=== PATIENT | male | born 1935 | race Caucasian/White ===

== ENCOUNTER → 2017-03-06 | Outpatient (CLI) | payer OTHER ==
[2017-03-07 12:44] LABS: POTASSIUM 4.9 mmol/L (3.5-5.1); SODIUM 133 mmol/L (136-145)
[2017-03-07 12:45] LABS: ANION GAP 13.9 mmol/L (8-16); BASOPHILS % 0.3 % (0.0-1.0); BLOOD UREA NITROGEN 16 mg/dL (7-26); BUN/CREATININE RATIO 25 (6-25); CALCIUM 8.9 mg/dL (8.4-10.2); CARBON DIOXIDE 31 mmol/L (22-29); CHLORIDE 93 mmol/L (98-107); CREATININE, SERUM 0.65 mg/dL (0.72-1.25); EST GLOMERULAR FILTRATION RATE > 60 ML/MIN (60-); GLUCOSE 108 mg/dL (74-118); HEMATOCRIT 35.5 % (38.2-49.6); HEMOGLOBIN 11.5 g/dL (14.0-18.0); LYMPHOCYTES # (AUTO) 0.5 (1.0-3.2); LYMPHOCYTES % 4.4 % (18.0-39.1); MEAN CORPUSCULAR HEMOGLOBIN 31.3 pg (28-32); MEAN CORPUSCULAR HGB CONC 32.4 g/dL (31-35); MEAN CORPUSCULAR VOLUME 96.5 fL (81-99); MONOCYTES # (AUTO) 0.6 (0.2-0.8); MONOCYTES % 5.3 % (4.4-11.3); NEUTROPHILS # (AUTO) 10.2 (2.1-6.9); NEUTROPHILS % 89.6 % (38.7-80.0); PLATELET COUNT 263 x10e3/uL (140-360); RED BLOOD COUNT 3.68 x10e6/uL (4.3-5.7); RED CELL DISTRIBUTION WIDTH 13.4 % (11.7-14.4)
== END ==
LOC: NPA 10:00
DX: R69 Illness, unspecified (principal)
CPT/HCPCS: 36415; 80048; 85025

== ENCOUNTER → 2017-03-21 | Outpatient (CLI) | payer OTHER ==
[2017-03-21 17:09] LABS: BASOPHILS # (AUTO) 0.1 (0.0-0.1); BASOPHILS % 0.4 % (0.0-1.0); EOSINOPHILS % 0.2 % (0.0-6.0); HEMATOCRIT 35.3 % (38.2-49.6); HEMOGLOBIN 11.2 g/dL (14.0-18.0); LYMPHOCYTES # (AUTO) 0.5 (1.0-3.2); LYMPHOCYTES % 3.9 % (18.0-39.1); MEAN CORPUSCULAR HEMOGLOBIN 30.7 pg (28-32); MEAN CORPUSCULAR HGB CONC 31.7 g/dL (31-35); MEAN CORPUSCULAR VOLUME 96.7 fL (81-99); MONOCYTES # (AUTO) 1.1 (0.2-0.8); MONOCYTES % 7.6 % (4.4-11.3); NEUTROPHILS # (AUTO) 12.1 (2.1-6.9); NEUTROPHILS % 87.5 % (38.7-80.0); PLATELET COUNT 257 x10e3/uL (140-360); RED BLOOD COUNT 3.65 x10e6/uL (4.3-5.7); RED CELL DISTRIBUTION WIDTH 13.8 % (11.7-14.4)
[2017-03-21 17:22] LABS: ANION GAP 16.7 mmol/L (8-16); BLOOD UREA NITROGEN 25 mg/dL (7-26); BUN/CREATININE RATIO 40 (6-25); CARBON DIOXIDE 31 mmol/L (22-29); CHLORIDE 96 mmol/L (98-107); CREATININE, SERUM 0.63 mg/dL (0.72-1.25); EST GLOMERULAR FILTRATION RATE > 60 ML/MIN (60-); GLUCOSE 96 mg/dL (74-118); POTASSIUM 3.7 mmol/L (3.5-5.1); SODIUM 140 mmol/L (136-145)
== END ==
LOC: NPA 13:30
DX: Z02.89 Encounter for other administrative examinations (principal)
CPT/HCPCS: 36415; 80048; 85025; 87070; 87186; 87205; 87493

== ENCOUNTER → 2017-04-19 | Outpatient (CLI) | payer OTHER ==
[2017-04-19 14:58] LABS: ANION GAP 14.2 mmol/L (8-16); BLOOD UREA NITROGEN 8 mg/dL (7-26); BUN/CREATININE RATIO 11 (6-25); CALCIUM 9.3 mg/dL (8.4-10.2); CARBON DIOXIDE 33 mmol/L (22-29); CHLORIDE 95 mmol/L (98-107); EST GLOMERULAR FILTRATION RATE > 60 ML/MIN (60-); GLUCOSE 146 mg/dL (74-118); POTASSIUM 4.2 mmol/L (3.5-5.1); SODIUM 138 mmol/L (136-145)
[2017-04-19 15:03] LABS: BASOPHILS % 0.5 % (0.0-1.0); EOSINOPHILS # (AUTO) 0.2 (0.0-0.4); EOSINOPHILS % 3.8 % (0.0-6.0); HEMATOCRIT 41.2 % (38.2-49.6); HEMOGLOBIN 12.8 g/dL (14.0-18.0); LYMPHOCYTES # (AUTO) 0.5 (1.0-3.2); LYMPHOCYTES % 8.1 % (18.0-39.1); MEAN CORPUSCULAR HEMOGLOBIN 29.8 pg (28-32); MEAN CORPUSCULAR HGB CONC 31.1 g/dL (31-35); MONOCYTES # (AUTO) 0.4 (0.2-0.8); MONOCYTES % 7.9 % (4.4-11.3); NEUTROPHILS # (AUTO) 4.4 (2.1-6.9); NEUTROPHILS % 79.3 % (38.7-80.0); PLATELET COUNT 180 x10e3/uL (140-360); RED BLOOD COUNT 4.29 x10e6/uL (4.3-5.7); RED CELL DISTRIBUTION WIDTH 14.6 % (11.7-14.4)
== END ==
LOC: NPA 11:22
DX: Z02.89 Encounter for other administrative examinations (principal)
CPT/HCPCS: 36415; 80048; 85025

== ENCOUNTER → 2017-06-26 | Outpatient (CLI) | payer MEDICARE ==
--- NOTE | 2017-06-26 18:50 | Diagnostic Imaging Report ---
PROCEDURE: CT CHEST WITHOUT CONTRAST CT scan of the chest WITHOUT intravenous contrast, using standard protocol. TECHNIQUE: The chest was scanned utilizing a multidetector helical scanner from the apex to the level of the adrenal glands. No IV contrast was administered per physician's request. Coronal and sagittal multiplanar reformations were obtained. COMPARISON: None. INDICATIONS: EVALUATION OF TRACHEOSTOMY FINDINGS: Lines/tubes: Tracheostomy tube in place, with distal tip approximately 4-5 cm above the marilee. No surrounding soft tissue edema or well defined fluid collection in the anterior upper chest. 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 Linear opacities likely reflecting scarring are also noted in the left lower lobe (series 3, image 77), with posterior atelectatic changes, which are probably chronic given presence of calcifications (series 2, image 89). Linear opacities consistent with scarring are also noted in the anterior right lower lobe and right middle lobe (sagittal image 20-23). No consolidation or pulmonary masses. No nodules. Airways are clear, without endobronchial lesions. Pleura: No effusion. No pneumothorax. Heart and mediastinum: The thyroid is unremarkable. Enlargement of the left atrium. Atherosclerotic calcification of the coronary arteries, thoracic aorta and mitral annulus. Main pulmonary artery is enlarged, measuring approximately 3.7 cm. Lymph nodes: No mediastinal, hilar, or axillary adenopathy. Abdomen: Limited views of the upper abdomen show no abnormality within the visualized spleen, pancreas, or kidneys. The adrenal glands are unremarkable. 8mm hypodense lesion in hepatic segment VII (series 2 image 23) has measure fluid density consistent with a simple cyst.. Bones: No aggressive lytic lesion. Soft tissues are grossly unremarkable. IMPRESSION: 1. tracheostomy tube in place, with distal tip approximately 4-5 cm above the marilee. 2. 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 Linear opacities, likely reflecting scarring are also noted in the left lower lobe, anterior, right lower lobe and right middle lobe. No consolidation. 3. Atelectatic changes in the left lower lobe, which are likely chronic. Alex Roldan M.D. Dictated by: Alex Roldan M.D. on 06/26/2017 at 18:51 Electronically approved by: Alex Roldan M.D. on 06/26/2017 at 18:51
== END ==
LOC: CT 14:29
PROVIDERS: ATTEND Internal Medicine
DX: Z93.0 Tracheostomy status (principal)
CPT/HCPCS: 71250

== ENCOUNTER → 2017-07-10 | Day surgery (SDC) | payer MEDICARE ==
[2017-07-03 16:34] LABS: BASOPHILS % 0.4 % (0.0-1.0); EOSINOPHILS # (AUTO) 0.2 (0.0-0.4); EOSINOPHILS % 2.5 % (0.0-6.0); HEMATOCRIT 41.5 % (38.2-49.6); HEMOGLOBIN 13.2 g/dL (14.0-18.0); LYMPHOCYTES # (AUTO) 0.7 (1.0-3.2); LYMPHOCYTES % 10.3 % (18.0-39.1); MEAN CORPUSCULAR HEMOGLOBIN 29.7 pg (28-32); MEAN CORPUSCULAR HGB CONC 31.8 g/dL (31-35); MEAN CORPUSCULAR VOLUME 93.5 fL (81-99); MONOCYTES # (AUTO) 0.7 (0.2-0.8); MONOCYTES % 10.2 % (4.4-11.3); NEUTROPHILS # (AUTO) 5.1 (2.1-6.9); NEUTROPHILS % 76.5 % (38.7-80.0); PLATELET COUNT 170 x10e3/uL (140-360); RED BLOOD COUNT 4.44 x10e6/uL (4.3-5.7); RED CELL DISTRIBUTION WIDTH 13.2 % (11.7-14.4)
[~2017-07-10] MED LIST: ALBUTEROL0.63 MG/3 INH; ALPRAZOLAM0.25 M1 PO; ASPIR 8181 MG PO; BACITRACIN ZINC 15 GM OINT ONE; BUSPIRONE HCL5 MG PO; CENTRUM SILVER1 EAC3 PO; CITALOPRAM HBR20 MG PO; DIGOXIN125 MCG PO; FENTANYL CITRATE/PF 100MCG/2 ML INJ ONE; FINASTERIDE5 MG PO; FLOMAX0.4 MG PO; LEVOTHYROXINE112 MCG PO; METOPROLOL TART25 MG PO; OMEPRAZOLE40 MG PO; PROPOFOL IV EMULSION 10 MG/ML 50 ML VIAL ONE
--- OUTSIDE RECORDS SUMMARY | 2017-07-10 09:30 | XMS REPORT ---
Author Author [facility] Address Unknown Phone Unavailable Care Team Providers Care Entry Level Account Manager Name Role Phone JOANN JAMES Unavailable Unavailable Problems This patient has no known problems. Allergies, Adverse Reactions, Alerts This patient has no known allergies or adverse reactions. Medications This patient has no known medications. Results Test Description Test Time Test Comments Text Results Atomic Results Result Comments CT CHEST WO [place] [address] Patient Name: NAY ADAMES MR #: [id number] : 1935 Age/Sex: 82/M Req #: [id number] Adm Physician: Ordered by: JOANN JAMES MD Report #: [id number] Location: CT Room/Bed: Procedure: [id number] CT/CT CHEST WO Exam Date: 06/26/17 Exam Time: 1450 REPORT STATUS: Signed PROCEDURE: CT CHEST WITHOUT CONTRAST CT scan of the chest WITHOUT intravenous contrast, using standard protocol. TECHNIQUE: The chest was scanned utilizing a multidetector helical scanner from the apex to the level of the adrenal glands. No IV contrast was administered per physician's request. Coronal and sagittal multiplanar reformations were obtained. COMPARISON: None. INDICATIONS: EVALUATION OF TRACHEOSTOMY FINDINGS: Lines/tubes: Tracheostomy tube in place, with distal tip approximately 4-5 cm above the marilee. No surrounding soft tissue edema or well defined fluid collection in the anterior upper chest. 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 Linear opacities likely reflecting scarring are also noted in the left lower lobe ( series 3, image 77), with posterior atelectatic changes, which are probably chronic given presence of calcifications (series 2, image 89). Linear opacities consistent with scarring are also noted in the anterior right lower lobe and right middle lobe (sagittal image 20-23). No consolidation or pulmonary masses. No nodules. Airways are clear, without endobronchial lesions. Pleura: No effusion. No pneumothorax. Heart and mediastinum : The thyroid is unremarkable. Enlargement of the left atrium. Atherosclerotic calcification of the coronary arteries, thoracic aorta and mitral annulus. Main pulmonary artery is enlarged, measuring approximately 3.7 cm. Lymph nodes: No mediastinal, hilar, or axillary adenopathy. Abdomen: Limited views of the upper abdomen show no abnormality within the visualized spleen, pancreas, or kidneys. The adrenal glands are unremarkable. 8mm hypodense lesion in hepatic segment VII (series 2 image 23 ) has measure fluid density consistent with a simple cyst.. Bones: No aggressive lytic lesion. Soft tissues are grossly unremarkable. IMPRESSION: 1. tracheostomy tube in place, with distal tip approximately 4-5 cm above the marilee. 2. 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 Linear opacities, likely reflecting scarring are also noted in the left lower lobe, anterior, right lower lobe and right middle lobe. No consolidation. 3. Atelectatic changes in the left lower lobe, which are likely chronic. Jyoti Roldan M.D. Dictated by : Jyoti Roldan M.D. on 06/26/2017 at 18:51 Electronically approved by: Jyoti Roldan M.D. on 06/26/2017 at 18:51 Dictated By : JYOTI ROLDAN MD 50 Transcribed By: INDY on 06/26/171850 COPY TO: JOANN JAMES MD
--- OUTSIDE RECORDS SUMMARY | 2017-07-10 09:30 | XMS REPORT | Clinical Summary ---
Author Author [facility] Organization [facility] Address Unknown Phone Unavailable Care Team Providers Care Crew Clerk Name Role Phone France Caballero MD PCP Allergies Active Allergy Reactions Severity Noted Date Comments Cefdinir Diarrhea, Other (See Medium 08/16/2016 Diarrhea & Dizziness Comments) Levofloxacin Other (See Comments) High 08/16/2016 "Headache, sore jaw, dizzy, & raised pulse" Nitrofuran Analogues 08/16/2016 Nitrofurantoin Other (See Comments) High 09/20/2016 "Nausea, increased dizziness, headache, upset stomach, chest pain, very weak, lost weight, & voice changed" Paroxetine Hcl Other (See Comments) High 08/16/2016 "Head, heart, stomach, lung, and dizziness problems" Current Medications Prescription Sig. Disp. Refills Start End Date Status Date tobramycin 80 mg/mL Take 3.75 mL (300 mg 10/27/19 Active solution for nebulization total) by nebulization 17 every 12 (twelve) hours. dextrose 50% syringe Infuse 25 mL (12.5 g 10/27/19 Active total) into a venous 17 catheter every 20 (twenty) minutes as needed (If blood glucose is between 41-69 mg/dL). dextrose 50% syringe Infuse 50 mL (25 g total) 10/27/19 Active into a venous catheter 17 every 20 (twenty) minutes as needed (If blood glucose is 40 mg/dL or LESS). ALPRAZolam (XANAX) 0.25 Take 0.25 mg by mouth. 09/21/19 Discontin MG tablet 17 ued atorvastatin (LIPITOR) 40 Take by mouth. 09/21/19 Discontin MG tablet 17 ued latanoprost (XALATAN) INSTILL 1 DROP IN BOTH 02/16/20 09/21/19 Discontin 0.005 % ophthalmic EYES EVERY DAY AT BEDTIME 16 17 ued solution finasteride (PROSCAR) 5 07/12/19 09/21/19 Discontin mg tablet 17 17 ued levothyroxine (SYNTHROID, 08/14/19 09/21/19 Discontin LEVOXYL) 25 mcg tablet 17 17 ued aspirin (ECOTRIN) 81 MG Take 81 mg by mouth 09/21/19 Discontin enteric coated tablet daily. 17 ued calcium carbonate-vitamin Take 1 tablet by mouth 2 09/21/19 Discontin D3 500 mg-200 unit per (two) times a day with 17 ued tablet meals. cyanocobalamin 500 MCG Take 500 mcg by mouth 09/21/19 Discontin tablet daily. 17 ued amoxicillin (AMOXIL) 500 Take 500 mg by mouth 3 09/21/19 Discontin MG capsule (three) times a day. 17 ued furosemide (LASIX) 20 mg TK 1 T PO D 0 09/18/19 09/21/19 Discontin tablet 17 17 ued lisinopril TK 1 T PO D 3 09/13/19 09/21/19 Discontin (PRINIVIL,ZESTRIL) 2.5 mg 17 17 ued tablet metoprolol succinate XL 08/23/19 09/21/19 Discontin (TOPROL-XL) 25 mg 24 hr 17 17 ued tablet tamsulosin (FLOMAX) 0.4 07/10/19 09/21/19 Discontin mg capsule,extended 17 17 ued release 24hr ALPRAZolam (XANAX) 0.25 Take 0.25 mg by mouth 3 09/28/19 Discontin MG tablet (three) times a day as 17 ued needed for anxiety. atorvastatin (LIPITOR) 40 Take 40 mg by mouth 10/27/19 Discontin MG tablet nightly. 17 ued levothyroxine (SYNTHROID, Take 25 mcg by mouth 10/27/19 Discontin LEVOXYL) 25 mcg tablet every morning. 17 ued latanoprost (XALATAN) Administer 1 drop to both 10/27/19 Discontin 0.005 % ophthalmic eyes nightly. 17 ued solution triamcinolone (KENALOG) Apply 1 application 10/27/19 Discontin 0.1 % ointment topically as needed. 17 ued finasteride (PROSCAR) 5 Take 5 mg by mouth 10/27/19 Discontin mg tablet nightly. 17 ued metoprolol succinate XL Take 25 mg by mouth 09/28/19 Discontin (TOPROL-XL) 25 mg 24 hr nightly. 17 ued tablet aspirin (ECOTRIN) 81 MG Take 81 mg by mouth every 10/27/19 Discontin enteric coated tablet morning. 17 ued calcium carbonate-vitamin Chew 1 tablet daily. 10/27/19 Discontin D3 (CALTRATE 600 + D) 600 17 ued mg (1,500 mg)-800 unit tablet,chewable ascorbic acid, vitamin C, Take 500 mg by mouth 10/27/19 Discontin (VITAMIN C) 500 MG tablet every morning. 17 ued cyanocobalamin 500 MCG Take 500 mcg by mouth 10/27/19 Discontin tablet every morning. 17 ued ALPRAZolam (XANAX) 0.25 Take 1 tablet (0.25 mg 15 tablet 0 09/28/19 10/27/19 Discontin MG tablet total) by mouth 3 (three) 17 17 ued times a day as needed for anxiety for up to 5 days. metoprolol succinate XL Take 1 tablet (50 mg 30 tablet 0 09/28/19 Discontin (TOPROL-XL) 50 mg 24 hr total) by mouth nightly 17 17 ued tablet for 30 days. acetaminophen (TYLENOL) Take 2 tablets (650 mg 10/27/19 11/26/19 325 MG tablet total) by mouth every 6 17 17 (six) hours as needed for fever (GREATER than 100.4) for up to 30 days. acetaminophen (TYLENOL) Take 20.3 mL (650 mg 10/27/19 11/26/19 650 mg/20.3 mL solution total) by mouth every 6 17 17 (six) hours as needed (GREATER than 100.4) for up to 30 days. acetaminophen (TYLENOL) Insert 1 suppository (650 10/27/19 11/26/19 650 MG suppository mg total) into the rectum every 6 (six) hours as needed for fever (GREATER than 100.4) for up to 30 days. ALPRAZolam (XANAX) 0.25 Take 1 tablet (0.25 mg 15 tablet 0 10/27/19 11/01/19 MG tablet total) by mouth 3 (three) 17 17 times a day as needed for anxiety for up to 5 days. amIODarone (PACERONE) 200 Take 1 tablet (200 mg 60 tablet 0 10/27/19 11/26/19 MG tablet total) by mouth 2 (two) 17 17 times a day for 30 days. ondansetron (ZOFRAN) 4 Infuse 2 mL (4 mg total) 20 mL 10/27/19 mg/2 mL injection into a venous catheter 17 17 every 8 (eight) hours as needed for nausea or vomiting for up to 30 days. hydrALAZINE (APRESOLINE) Infuse 0.5 mL (10 mg 1 mL 10/27/19 11/26/19 20 mg/mL injection total) into a venous 17 catheter every 6 (six) hours as needed for high blood pressure for up to 30 days. QUEtiapine (SEROquel) 25 Take 1 tablet (25 mg 10/27/19 11/26/19 MG tablet total) by mouth 2 (two) 17 17 times a day for 30 days. dextran 70-hypromellose Administer 1 drop to both 10/27/19 11/26/19 (ARTIFICIAL TEARS) eyes 3 (three) times a 17 0.1-0.3 % drops day as needed (dry eyes) for up to 30 days. finasteride (PROSCAR) 5 Take 1 tablet (5 mg 30 tablet 0 10/27/19 mg tablet total) by mouth daily for 17 17 30 days. tamsulosin (FLOMAX) 0.4 Take 1 capsule (0.4 mg 30 capsule 0 10/27/19 11/26/19 mg capsule,extended total) by mouth daily for 17 release 24hr 30 days. ipratropium-albuterol Take 3 mL by nebulization 360 mL 0 10/27/19 (DUO-NEB) 0.5-2.5 mg/mL every 6 (six) hours for 17 nebulizer 30 days. metoprolol tartrate 0.5 tablets (12.5 mg 30 tablet 0 10/27/19 (LOPRESSOR) 25 mg tablet total) by feeding tube 17 route 2 (two) times a day for 30 days. cefepime (MAXIPIME) 1 Infuse 1 g into a venous 08/18/20 08/25/20 gram in 50 mL Mini-Bag catheter every 8 (eight) 17 17 Plus hours for 7 days. digOXIN (LANOXIN) 125 mcg Take 1 tablet (125 mcg 30 tablet 0 10/27/19 11/26/19 tablet total) by mouth daily for 17 30 days. enoxaparin (LOVENOX) 30 Inject 0.3 mL (30 mg 9 mL 0 10/27/19 mg/0.3 mL syringe total) under the skin 17 daily for 30 days. insulin lispro (HumaLOG) Inject 0-7 Units under 10 mL 12 10/27/19 100 unit/mL injection the skin every 4 (four) 17 17 hours for 30 days. dextrose 10 % infusion Infuse 40 mL/hr into a 500 mL 10/27/19 venous catheter 17 continuously as needed (bedside glucose LESS than 70 mg/dL) for up to 30 days. docusate (COLACE) 50 mg/5 Take 10 mL (100 mg total) 10/27/19 11/26/19 mL liquid by mouth 2 (two) times a 17 day for 30 days. magnesium hydroxide 400 Take 15 mL by mouth 4 10/27/19 11/26/19 mg/5 mL suspension (four) times a day as 17 17 needed (indigestion) for up to 30 days. polyethylene glycol Take 17 g by mouth daily 10/27/19 11/26/19 (MIRALAX) 17 gram packet for 30 days. 17 17 sennosides-docusate Take 1 tablet by mouth 2 10/27/19 11/26/19 sodium (SENOKOT-S) 8.6-50 (two) times a day as 17 17 mg per tablet needed for constipation for up to 30 days. bisacodyl (DULCOLAX) 10 Insert 1 suppository (10 10/27/19 11/26/19 mg suppository mg total) into the rectum 17 daily as needed for constipation for up to 30 days. latanoprost (XALATAN) Administer 1 drop to both 1.5 mL 0 08/18/20 09 /17/20 0.005 % ophthalmic eyes nightly for 30 days. 17 17 solution acetylcysteine (MUCOMYST) Take 4 mL by nebulization 10/27/19 11/26/19 200 mg/mL (20 %) every 6 (six) hours for 17 17 nebulizer solution 30 days. HYDROcodone-acetaminophen Take 1 tablet by mouth 10/27/19 11/26/19 (NORCO) 5-325 mg per every 4 (four) hours as 17 17 tablet needed for moderate pain for up to 30 days. Max Daily Amount: 6 tablets HYDROcodone-acetaminophen Take 1 tablet by mouth 10/27/19 11/26/19 (NORCO) 10-325 mg per every 4 (four) hours as 17 17 tablet needed for severe pain for up to 30 days. Max Daily Amount: 6 tablets aspirin 81 mg chewable Chew 1 tablet (81 mg 30 tablet 0 10/27/19 tablet total) daily for 30 days. 17 17 potassium chloride Take 30 mL (40 mEq total) 10/27/19 11/26/19 (KAYCIEL) 20 mEq/15 mL by mouth 3 (three) times 17 solution a day for 30 days. omeprazole (PRILOSEC) 2 Take 10 mL (20 mg total) 300 mL 0 10/27/19 11/26/19 mg/mL oral suspension by mouth daily for 30 17 17 days. levothyroxine (SYNTHROID, Take 1 tablet (75 mcg 30 tablet 0 10/27/19 11/26/19 LEVOXYL) 75 mcg tablet total) by mouth daily for 17 30 days. Active Problems Problem Noted Date Electrolyte abnormality 10/15/2016 s/p R VATS and decortication 10/15/2016 Atrial fibrillation, currently in sinus rhythm 10/07/2016 Anemia due to blood loss, acute 10/07/2016 Pleural effusion on right 10/06/2016 Elevated right diaphragm 10/06/2016 Atelectasis of right lung 10/06/2016 S/P MVR (mitral valve repair) 10/01/16 10/01/2016 Respiratory insufficiency/failure secondary to generalized weakness 2016 Acute mitral insufficiency 09/26/2016 Resolved Problems Problem Noted Date Resolved Date Pericardial effusion 10/07/2016 10/15/2016 Right ventricular dysfunction 10/07/2016 10/12/2016 Shock circulatory 10/07/2016 10/12/2016 Hypercapnic respiratory failure 10/06/2016 10/12/2016 Hyponatremia 10/05/2016 10/07/2016 Mitral regurgitation 10/01/2016 10/06/2016 Post-op pain 10/01/2016 10/07/2016 Encounters Date Type Specialty Care Team Description 01/29/2017 Telephone Serge Shandra Keyonna 01/29/2017 Telephone Quality Keyonna Devi 01/29/2017 Telephone Quality Keyonna Devi 10/12/2016 Anesthesia Cardiothoracic Surgery Sunshine Boss MD Event 10/12/2016 Procedure Pass Cardiothoracic Surgery 10/12/2016 Surgery Cardiothoracic Surgery Lenard Salgado MD Tracheostomy 10/08/2016 Anesthesia Cardiothoracic Surgery Marnie Hurt Event 10/08/2016 Procedure Pass Cardiothoracic Surgery 10/08/2016 Surgery Cardiothoracic Surgery Lenard Salgado MD RIGHT VATS , DRAINAGE OF PERICARDIAL EFFUSION 10/01/2016 Hospital Cardiac Intensive Care Lenard Salgado MD Respiratory insufficiency - Encounter (Primary Dx); 10/26/2016 Loculated right pleural hematoma; Hyponatremia; Shock circulatory; S/P MVR (mitral valve repair) 10/01/16; Respiratory insufficiency/failure secondary to generalized weakness; s/p R VATS and decortication 10/01/2016 Anesthesia Cardiothoracic Surgery Sanju Delgado Event 10/01/2016 Procedure Pass Cardiothoracic Surgery 10/01/2016 Surgery Cardiothoracic Surgery Lenard Salgado MD REDO MITRAL VALVE REPAIR 09/29/2016 Refill Cardiovascular Spears, Tanya, PA 09/28/2016 Orders Only Cardiovascular Spears, Tanya, PA 09/26/2016 Hospital Cardiology John Tim MD Acute mitral - Encounter insufficiency 09/27/2016 09/26/2016 Procedure Pass Procedural Cardiology 09/26/2016 Surgery Procedural Cardiology John Tim MD Cv right and left heart cath selective angiography lv 09/26/2016 Procedure Pass Procedural Cardiology 09/20/2016 Emergency Emergency Medicine Brandyn Rice MD Electrolyte abnormality (Primary Dx); Dehydration 09/20/2016 Lab Lab John Tim MD Essential hypertension (Primary Dx); 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 Lab Lab John Tim MD Secondary hypertension (Primary Dx) 08/29/2016 Hospital Procedural Cardiology France Gutierrez MD Nonrheumatic mitral valve Encounter insufficiency 08/28/2016 Transcribe Procedural Cardiology France Gutierrez MD Nonrheumatic mitral valve Orders insufficiency (Primary Dx) 08/16/2016 Office Visit Gastroenterology Gerald Kessler MD Weight loss, abnormal (Primary Dx); Early satiety after 07/09/2016 Family History Medical History Relation Name Comments Pancreatic cancer Father Manish Rudolph Rectal cancer Mother Myra Rudolph Relation Name Status Comments Father Manish Rudolph Mother Myra Rudolph Social History Tobacco Use Types Packs/Day Years Used Date Former Smoker Cigarettes, Cigars 2 03/11/1953 - 07/24/1967 Alcohol Use Drinks/Week oz/Week Comments Yes Do not drink at present time Sex Assigned at Date Recorded Not on file Last Filed Vital Signs Vital Sign Reading Time Taken Blood Pressure 109/56 10/26/2016 6:00 PM CDT Pulse 73 10/26/2016 6:00 PM CDT Temperature 36.1 C (97 F) 10/26/2016 4:30 PM CDT Respiratory Rate 10 10/26/2016 6:00 PM CDT Oxygen Saturation 100% 10/26/2016 6:00 PM CDT Inhaled Oxygen - - Concentration Weight 71.5 kg (157 lb 9 oz) 10/01/2016 5:53 AM CDT Height 172.7 cm (5' 8") 10/01/2016 8:00 AM CDT Body Mass Index 23.96 10/01/2016 5:53 AM CDT Plan of Treatment Health Maintenance Due Date Last Done Comments SHINGRIX VACCINE (#1) 1987 ZOSTER VACCINE 1997 PNEUMOCOCCAL 2002 POLYSACCHARIDE VACCINE AGE 65 AND OVER PNEUMOCOCCAL-13 2002 INFLUENZA VACCINE 10/09/2017 01/17/2016, 12/30/2015, 01/13/2015, Additional history exists Implants Implanted Type Area Occ Therapist Device Expiration Model / Identifier Date Serial / Lot Lead Pace Edenilson Mycrdl Unipol Tmpry Cardiovasc N/A: N/A [employer] [facility] - 6500F / Streamline - [id number] ular CARDIAC SRGRY / Implanted: 10/01/2016 (Quantity not Implants on file) Lead Pace Edenilson Mycrdl Unipol Tmpry Cardiovasc N/A: N/A [employer] [place] - 6500F / Streamline - [id number] ular CARDIAC SRGRY / Implanted: 10/01/2016 (Quantity not Implants on file) [place] Perph Vasclr Ptfe 1.2x10cm Vascular N/A: N/A BARD PERIPHERAL [id number] / 1.65mm - [id number] Graft VASCULAR / Implanted: 10/01/2016 (Quantity not [id number] on file) [place] Perph Vasclr Ptfe 1.2x10cm Vascular N/A: N/A BARD PERIPHERAL [id number] / 1.65mm - [id number] Graft VASCULAR / Implanted: 10/01/2016 (Quantity not [id number] on file) Procedures Procedure Name Priority Date/Time Associated Diagnosis Comments ECHOCARDIOGRAM 2D Routine 10/11/2016 Results for this COMPLETE W MMODE SPECTRAL 2:00 PM CDT procedure are in the COLOR DOPPLER (97840) results section. CENTRAL LINE Routine 10/09/2016 Results for this 7:24 PM CDT procedure are in the results section. ANESTHESIA INTUBATION Routine 10/09/2016 Results for this 7:24 PM CDT procedure are in the results section. ANESTHESIA SHAYY Routine 10/09/2016 Results for this 7:24 PM CDT procedure are in the results section. ND AN ELECTIVE Routine 10/08/2016 ENDOTRACHEAL AIRWAY 2:35 PM CDT Procedure Note - Marnie Hurt - 10/08/2016 2:33 PM CDT Airway Date/Time: 10/08/2016 2:33 PM Performed by: BLADE LOMAX Authorized by: BLADE LOMAX Location: OR Urgency: Elective Anesthesio logist: BLADE LOMAX Resident/C RNA: PATRICIO RAMIREZ Other Anesthesia Staff: MARNIE HURT Performed by: other anesthesia staff and resident/C RNA Preoxygena zechariah with 100% O2: Yes C-spine Precaution s Maintained Throughout : Yes Final Airway Type: Endotrache al airway Final Endotrache al Airway: ETT Cuffed: Yes Technique Used: Direct laryngosco py Insertion Site: Oral Blade Type: Catalan Laryngosco pe Blade/Vide olaryngosc ope Blade Size: 2 ETT Size (mm): 8.0 Cuff at minimum occlusion pressure: Yes Measured from: Lips ETT to Lips (cm): 22 Placement Verified by: CO2 detection and direct visualizat ion Laryngosco pic view: Grade I - full view of glottis Rapid Sequence Induction (RSI): No Modified RSI: No BERNA replaced with SLT for ICU admission. DL x1 by PAULINA Franklin. BERNA removed and single lumen inserted. MIL2. Grade I view. 8.0 ETT passed easily through VC. Atraumatic intubation . +ETCO2 ECHOCARDIOGRAM 2D STAT 10/06/2016 Results for this COMPLETE W MMODE SPECTRAL 4:30 PM CDT procedure are in the COLOR DOPPLER (00112) results section. HC CATH DUAL LUMEN PICC Routine 10/06/2016 Results for this 3:16 PM CDT procedure are in the results section. HC US GUIDED VASCULAR Routine 10/06/2016 Results for this ACCESS 3:16 PM CDT procedure are in the results section. HC CVL PICC INSERT 5 YRS Routine 10/06/2016 Results for this OR > 3:16 PM CDT procedure are in the results section. INTUBATION Routine 10/06/2016 Respiratory insufficiency Results for this 12:18 PM CDT procedure are in the results section. ANESTHESIA SHAYY Routine 10/02/2016 4:06 PM CDT Procedure Note - Koby Alatorre MD - 10/01/2016 11:35 AM CDT Procedure Performed: SHAYY Start Time: End Time: Preanesth esia Checklist: Patient identified , IV assessed, risks and benefits discussed, monitors and equipment assessed, procedure being performed at surgeon's request, anesthesia consent obtained. General Procedure Informatio n Diagnostic Indication s for Echo: assessment of surgical repair and hemodynami c monitoring Physician Requesting Echo: LENARD SALGADO Location performed: OR Intubated Bite block placed Heart visualized Probe Insertion: Easy Probe Type: Multiplane Modalities : 2D only, color flow mapping, continuous wave Doppler and pulse wave Doppler Echocardi ographic and Doppler Measuremen ts Ventricle s Right Ventricle: Cavity size normal. Hypertroph y present. Global function mildly impaired. Ejection Fraction 40%. Left Ventricle: Cavity size normal. Hypertroph y not present. Thrombus not present. Global Function normal. Ejection Fraction 60%. Ventricul ar Regional Function: 1- Basal Anterosept al: normal 2- Basal Anterior: normal 3- Basal Anterolate ral: normal 4- Basal Inferolate ral: normal 5- Basal Inferior: normal 6- Basal Inferosept al: normal 7- Mid Anterosept al: normal 8- Mid Anterior: normal 9- Mid Anterolate ral: normal 10- Mid Inferolate ral: normal 11- Mid Inferior: normal 12- Mid Inferosept al: normal 13- Apical Anterior: normal 14- Apical Lateral: normal 15- Apical Inferior: normal 16- Apical Septal: normal 17- [place]: normal Valves Aortic Valve: Annulus normal. Stenosis not present. Regurgitat ion +1. Leaflets normal. Leaflet motions normal. Mitral Valve: Stenosis not present. Regurgitat ion +3. Leaflets thickened. Leaflet motions prolapsed and flail. Specific leaflet segments with abnormal motions are described in the following comments: P2 Tricuspid Valve: Annulus normal. Stenosis not present. Regurgitat ion absent. Leaflets normal. Leaflet motions normal. Pulmonic Valve: Annulus normal. Stenosis not present. Regurgitat ion absent. Aorta Ascending Aorta: Size normal. Aortic Arch: Size normal. Descending Aorta: Size normal. Plaque thickness less than 3 mm. Mobile plaque not present. Atria Right Atrium: Size normal. Thrombus not present. Device not present. Left Atrium: Size dilated. Thrombus not present. Device not present. Left atrial appendage normal. Septa Atrial Septum: Intra-atri al septal morphology normal. Ventricul ar Septum: Intra-vent ricular septum morphology normal. Diastolic Function Measuremen ts: Diastolic Dysfunctio n Grade=III E=ms A=ms E/A Ratio=2.1 DT=ms S/D=<1 IVRT= Other Findings Pericardiu m: normal Pleural Effusion: none Pulmonary Arteries: normal Pulmonary Venous Flow: blunted (decreased ) systolic flow and systolic flow reversal Anesthesi a Informatio n Performed Personally Anesthesio logist: KOBY ALATORRE Echocardio gram Comments: P2 prolapse/f darline repaired with new neochordae placed with trivial residual MR, Mean gradient of 1 mmHg, and Peak gradient of 3 mmHg. Other findings unchanged as above. ARTERIAL LINE Routine 10/01/2016 11:35 AM CDT Procedure Note - Koby Alatorre MD - 10/01/2016 7:42 AM CDT Arterial line Performed by: BLADE LOMAX Authorized by: BLADE LOMAX Patient Location: Pre-op Start Time: 10/01/2016 7:00 AM End Time: 10/01/2016 7:10 AM Staff: Tati mcdonaldt: KOBY ALATORRE Resident/C RNA: SANJU DELGADO Performed by: Resident/C RNA Pre-proced ure: patient identified , IV checked, site and side verified, risks and benefits discussed, procedure verified, surgical consent complete, patient position confirmed, monitors and equipment checked and pre-op evaluation complete MSBT: antiseptic used, all elements of maximal sterile barrier technique followed, hand hygiene performed, cap/gown used by other personnel and solutions labeled Indication s: Indication s: multiple ABGs and hemodynami c monitoring Anesthesia : Anesthesia : Local infiltrati on Procedure Details: Arterial Line placement: Placed pre-induct ion Line placement site: Radial Line placement side: Right Arterial line gauge: 20 G Number of attempts: 1 Ultrasound guidance used: No Post-proce dure: Post-proce dure: Sterile dressing applied Post procedure circulatio n, sensation, movement: Normal Patient tolerance: Patient tolerated the procedure well with no immediate complicati ons CENTRAL LINE Routine 10/01/2016 Results for this 11:34 AM CDT procedure are in the results section. PA CATHETER Routine 10/01/2016 11:33 AM CDT Procedure Note - Koby Alatorre MD - 10/01/2016 7:45 AM CDT PA catheter Performed by: BLADE LOMAX Authorized by: BLADE LOMAX Patient Location: OR Start Time: 10/01/2016 7:45 AM End Time: 10/01/2016 7:45 AM Staff: Tati mcdonaldt: KOBY ALATORRE Other Staff: BLADE LOMAX Performed by: Tati martínez Preprocedu re: patient identified , IV checked, site and side verified, risks and benefits discussed, procedure verified, surgical consent complete, patient position confirmed, monitors and equipment checked and pre-op evaluation complete MSBT: antiseptic used, all elements of maximal sterile barrier technique followed, hand hygiene performed, cap/gown used by other personnel and solutions labeled Procedure details: PA Catheter Type: PUSH CONNECTOR ASSEMBLER PA Catheter Size: 8 PA Catheter Side: Right PA Catheter Site: Internal jugular PA Catheter secured at: 54 cm PA Catheter placed: PA Catheter placed without difficulty Waveform: PA Catheter wave confirmed Ports flushed: All ports flushed pre-proced ure Balloon checked: Balloon checked prior to insertion Post-proc edure: No arrhythmia : No arrhythmia s noted Patient tolerance: Patient tolerated the procedure well with no immediate complicati ons ND AN ELECTIVE Routine 10/01/2016 ENDOTRACHEAL AIRWAY 11:32 AM CDT Procedure Note - Koby Alatorre MD - 10/01/2016 7:39 AM CDT Airway Date/Time: 10/01/2016 7:35 AM Performed by: BLADE LOMAX Authorized by: BLADE LOMAX Location: OR Urgency: Elective Difficult Airway: No Anesthesio logist: KOBY ALATORRE Resident/C RNA: SANJU DELGADO Performed by: resident/C RNA Preoxygena zechariah with 100% O2: Yes C-spine Precaution s Maintained Throughout : No Mask Ventilatio n: Easy mask Final Airway Type: Endotrache al airway Final Endotrache al Airway: ETT Cuffed: Yes Technique Used: Direct laryngosco py Insertion Site: Oral Blade Type: Catalan Laryngosco pe Blade/Vide olaryngosc ope Blade Size: 2 ETT Size (mm): 8.0 Cuff at minimum occlusion pressure: Yes Measured from: Lips ETT to Lips (cm): 22 Placement Verified by: CO2 detection, direct visualizat ion and equal breath sounds Laryngosco pic view: Grade I - full view of glottis Rapid Sequence Induction (RSI): No Modified RSI: No Number of Attempts at Approach: 1 Easy bag mask with 100mm OA. DLx1 by SRNA with Catalan 2. Grade 1 view. ETT visualized passing through VC atraumatic ally. Verified with +BBS/ETCO2 . All soft tissue and dentition intact. CV RIGHT AND LEFT HEART Routine 09/26/2016 Acute mitral Results for this CATH SELECTIVE CORONARY 4:39 PM CDT insufficiency procedure are in the LV results section. ECHOCARDIOGRAM Routine 08/29/2016 Nonrheumatic mitral valve Results for this TRANSESOPHAGEAL W DOPPLER 10:02 AM CDT insufficiency procedure are in the COLORFLOW results section. after 07/09/2016 Results * POC glucose (10/26/2016 4:37 PM) Only the most recent of 161 results within the time period is included. Component Value Ref Range POC glucose 117 (H) 65 - 99 mg/dL Comment: No Action Needed Meter ID: [id number] Field Marketing Team Leader: Tevin Parisi Specimen Performing Laboratory [facility] DEPARTMENT OF PATHOLOGY AND GENOMIC MEDICINE [address] [place] [address] * XR Chest 1 Vw Portable (10/26/2016 5:47 AM) Only the most recent of 37 results within the time period is included. Specimen Performing [facility] [address] [place] [address] Narrative EXAMINATION:XR CHEST 1 VW PORTABLE CLINICAL HISTORY:SHORTNESS OF BREATH COMPARISON:10/25/2016. IMPRESSION: Top report Prior median sternotomy and mitral valve repair. Support lines and tubes project in stable position. Heart size is stable. Moderate right and small left pleural effusions are stable. Bibasilar atelectasis persists. No new focal consolidation is evident. No evidence of pneumothorax. [facility]-[id number] Procedure Note [facility], Radiology Results Incoming - 10/26/2016 6:27 AM CDT EXAMINATION: XR CHEST 1 VW PORTABLE CLINICAL HISTORY: SHORTNESS OF BREATH COMPARISON: 10/25/2016. IMPRESSION: Top report Prior median sternotomy and mitral valve repair. Support lines and tubes project in stable position. Heart size is stable. Moderate right and small left pleural effusions are stable. Bibasilar atelectasis persists. No new focal consolidation is evident. No evidence of pneumothorax. [facility]-[id number] * ECG 12 lead (10/26/2016 4:04 AM) Only the most recent of 22 results within the time period is included. Component Value Ref Range Ventricular rate 76 Atrial rate 76 ND interval 180 QRSD interval 82 QT interval 406 QTC interval 456 P axis 1 -6 QRS axis 1 42 T wave axis 26 EKG impression Normal sinus rhythm-Low voltage QRS-Nonspecific T wave abnormality (anterior leads)-Borderline ECG-In automated comparison with ECG of 25-OCT-2016 05:49,-No significant change was found- Specimen Performing Laboratory [facility] MUSE [address] [place] [address] * Estimated GFR (10/26/2016 3:03 AM) Only the most recent of 40 results within the time period is included. Component Value Ref Range GFR Non Af Amer >90 mL/min/1.73 m2 GFR Af Amer >90 mL/min/1.73 m2 Comment: Chronic kidney disease: <60 mL/min/1.73m2 Kidney failure: <15 mL/min/1.73m2 The estimated GFR is calculated from the IDMS-traceable Modification of Diet in Renal Disease Equation. The accuracy of the calculation is poor when the creatinine is normal. Calculated values >90 mL/min/1.73m2 are not reported. This equation has not been validated in children (<18 years), women, the elderly (>70 years), or ethnic groups other than Caucasians and Americans. Specimen Performing Laboratory Plasma specimen [facility] DEPARTMENT OF PATHOLOGY AND GENOMIC MEDICINE [address] [place] [address] * Phosphorus level (10/26/2016 3:03 AM) Only the most recent of 46 results within the time period is included. Component Value Ref Range Phosphorus 2.2 (L) 2.4 - 4.5 mg/dL Specimen Performing Laboratory Plasma specimen [facility] DEPARTMENT PATHOLOGY AND [address] [address] * Magnesium level (10/26/2016 3:03 AM) Only the most recent of 52 results within the time period is included. Component Value Ref Range Magnesium 2.4 1.6 - 2.4 mg/dL Specimen Performing Laboratory Plasma specimen [facility] DEPARTMENT PATHOLOGY AND [address] [address] * Ionized calcium (10/26/2016 3:03 AM) Only the most recent of 23 results within the time period is included. Component Value Ref Range pH 7.47 Ionized calcium 1.14 1.11 - 1.32 mmol/L Specimen Performing Laboratory Plasma specimen [facility] PATHOLOGY AND [place] [id number] * Comprehensive metabolic panel (10/26/2016 3:03 AM) Only the most recent of 5 results within the time period is included. Component Value Ref Range Sodium 136 135 - 148 mEq/L Potassium 4.2 3.5 - 5.0 mEq/L Chloride 96 (L) 98 - 112 mEq/L CO2 26 24 - 31 mEq/L Anion gap 14 7 - 15 mEq/L Comment: Starting from June , anion gap calculation no longer incorporates potassium. Please note the change. BUN 22 8 - 23 mg/dL Creatinine 0.7 0.7 - 1.2 mg/dL Glucose 84 65 - 99 mg/dL Calcium 8.8 8.8 - 10.2 mg/dL Protein 6.5 6.3 - 8.3 g/dL Comment: Pep 4.6-7.0 g/dL 1 week 4.4-7.6 g/dL 7 months-1year 5.1-7.3 g/dL 1-2 years 5.6-7.5 g/dL >3 years 6.0-8.0 g/dL 18-150 6.3-8.3 g/dL Albumin 3.3 (L) 3.5 - 5.0 g/dL A/G ratio 1.0 0.7 - 3.8 Alkaline phosphatase 133 (H) 40 - 129 U/L AST 51 (H) 10 - 50 U/L ALT 126 (H) 5 - 50 U/L Total bilirubin 1.3 (H) 0.0 - 1.2 mg/dL Specimen Performing Laboratory Plasma specimen [facility] DEPARTMENT OF PATHOLOGY AND GENOMIC MEDICINE [address] [place] [address] * Prepare RBC, 1 Units (10/26/2016 2:15 AM) Only the most recent of 8 results within the time period is included. Component Value Ref Range Product name Red Blood Cells -1, Leukored Unit number [id number] Product code [id number] Dispense status Transfused Blood expiration date [id number] Blood type code 8400 Blood type AB POSITIVE Specimen Performing Laboratory [facility] DEPARTMENT OF PATHOLOGY AND [facility] [address] [place] [address] * Type and screen (10/26/2016 2:15 AM) Only the most recent of 8 results within the time period is included. Component Value Ref Range ABO grouping AB Rh type POS Antibody screen (gel) NEG Specimen Performing Laboratory Blood [facility] DEPARTMENT OF PATHOLOGY AND [facility] [address] [place] [address] * CBC with platelet and differential (10/26/2016 2:00 AM) Only the most recent of 21 results within the time period is included. Component Value Ref Range WBC 7.80 4.50 - 11.00 k/uL RBC 2.52 (L) 4.40 - 6.00 m/uL HGB 7.5 (L) 14.0 - 18.0 g/dL HCT 23.8 (L) 41.0 - 51.0 % MCV 94.4 82.0 - 100.0 fL MCH 29.8 27.0 - 34.0 pg MCHC 31.5 31.0 - 37.0 g/dL RDW - SD 48.1 37.0 - 55.0 fL MPV 12.7 8.8 - 13.2 fL Platelet count 196 150 - 400 k/uL Nucleated RBC 0.00 /100 WBC Neutrophils 84.3 (H) 39.0 - 69.0 % Lymphocytes 6.7 (L) 25.0 - 45.0 % Monocytes 4.9 0.0 - 10.0 % Eosinophils 2.8 0.0 - 5.0 % Basophils 0.3 0.0 - 1.0 % Immature granulocytes 1.0Comment: "Immature granulocytes" 0.0 - 1.0 % (promyelocytes, myelocytes, metamyelocytes) Specimen Performing Laboratory Blood [facility] DEPARTMENT OF PATHOLOGY AND [place] [id number] * Bilirubin direct (10/25/2016 2:46 AM) Component Value Ref Range Bilirubin direct 0.4 (H) 0.0 - 0.3 mg/dL Specimen Performing Laboratory Plasma specimen [facility] DEPARTMENT OF PATHOLOGY AND [facility] [address] [place], [place] [id number] * Potassium level (10/24/2016 2:45 PM) Only the most recent of 20 results within the time period is included. Component Value Ref Range Potassium 4.5 3.5 - 5.0 mEq/L Specimen Performing Laboratory Plasma specimen [facility] DEPARTMENT OF PATHOLOGY AND [place] [id number] * Basic metabolic panel (10/24/2016 2:01 AM) Only the most recent of 35 results within the time period is included. Component Value Ref Range Sodium 138 135 - 148 mEq/L Potassium 3.6 3.5 - 5.0 mEq/L Chloride 97 (L) 98 - 112 mEq/L CO2 28 24 - 31 mEq/L Anion gap 13 7 - 15 mEq/L Comment: Starting from June , anion gap calculation no longer incorporates potassium. Please note the change. BUN 23 8 - 23 mg/dL Creatinine 0.7 0.7 - 1.2 mg/dL Glucose 117 (H) 65 - 99 mg/dL Calcium 8.9 8.8 - 10.2 mg/dL Specimen Performing Laboratory Plasma specimen [facility] DEPARTMENT OF PATHOLOGY AND [facility] [address] [place] [address] * Sputum culture (10/22/2016 1:59 PM) Only the most recent of 3 results within the time period is included. Component Value Ref Range Sputum culture isolate No normal oral juan manuel isolated. (A) Comment: Specimen Information Specimen Source: Sputum Specimen Site: Induced Sputum culture isolate Klebsiella pneumoniae Moderate The performance characteristics of this assay on this isolate were validated by the Microbiology Laboratory at [facility]. This source has not been approved by the U.S. Food and Drug Administration. The results are not intended to be used as the sole means for clinical diagnosis or patient management. The Microbiology Laboratory is authorized under the clinical Laboratory Improvement Amendments of 1988 (CLIA-88) to perform high complexity testing. (A) Sputum culture isolate Enterobacter cloacae complex Moderate The performance characteristics of this assay on this isolate were validated by the Microbiology Laboratory at [facility]. This source has not been approved by the U.S. Food and Drug Administration. The results are not intended to be used as the sole means for clinical diagnosis or patient management. The Microbiology Laboratory is authorized under the clinical Laboratory Improvement Amendments of 1988 (CLIA-88) to perform high complexity testing. (A) Specimen Performing Laboratory Sputum - Induced [facility] DEPARTMENT OF PATHOLOGY AND GENOMIC MEDICINE [address] [place] [address] Organism Antibiotic Method Susceptibility Klebsiella pneumoniae Ampicillin DILSHAD >16 mcg/mL: Resistant Klebsiella pneumoniae Amoxicillin/Clavulanate DILSHAD <=2/1 mcg/mL: Susceptible Klebsiella pneumoniae Amikacin DILSHAD <=4 mcg/mL: Susceptible Klebsiella pneumoniae Aztreonam DILSHAD <=1 mcg/mL: Susceptible Klebsiella pneumoniae Ceftazidime DILSHAD <=0.5 mcg/mL: Susceptible Klebsiella pneumoniae Ciprofloxacin DILSHAD <=0.5 mcg/mL: Susceptible Klebsiella pneumoniae Ceftriaxone DILSHAD <=0.5 mcg/mL: Susceptible Klebsiella pneumoniae Cefuroxime Sodium DILSHAD <=4 mcg/mL: Susceptible Klebsiella pneumoniae Cefazolin DILSHAD 2 mcg/mL: Susceptible Klebsiella pneumoniae Cefipime DILSHAD <=0.5 mcg/mL: Susceptible Klebsiella pneumoniae Cefoxitin DILSHAD <=4 mcg/mL: Susceptible Klebsiella pneumoniae Gentamicin DILSHAD 1 mcg/mL: Susceptible Klebsiella pneumoniae Imipenem DILSHAD <=0.25 mcg/mL: Susceptible Klebsiella pneumoniae Levofloxacin DILSHAD <=1 mcg/mL: Susceptible Klebsiella pneumoniae Meropenem DILSHAD <=0.125 mcg/mL: Susceptible Klebsiella pneumoniae Tobramycin DILSHAD 1 mcg/mL: Susceptible Klebsiella pneumoniae Ampicillin/Sulbactam DILSHAD 8/4 mcg/mL: Susceptible Klebsiella pneumoniae Trimethoprim/Sulfamethoxa DILSHAD <=0.5/9.5 mcg/mL: zole Susceptible Klebsiella pneumoniae Tetracycline DILSHAD 2 mcg/mL: Susceptible Klebsiella pneumoniae Piperacillin/Tazobactam DILSHAD 8/4 mcg/mL: Susceptible Klebsiella pneumoniae Ertapenem DILSHAD <=0.125 mcg/mL: Susceptible Klebsiella pneumoniae Tigecycline DILSHAD 1 mcg/mL: Susceptible Enterobacter cloacae Ampicillin DILSHAD >16 mcg/mL: Resistant complex Enterobacter cloacae Amoxicillin/Clavulanate DILSHAD >16/8 mcg/mL: Resistant complex Enterobacter cloacae Amikacin DILSHAD <=4 mcg/mL: Susceptible complex Enterobacter cloacae Aztreonam DILSHAD <=1 mcg/mL: Susceptible complex Enterobacter cloacae Ceftazidime DILSHAD <=0.5 mcg/mL: Susceptible complex Enterobacter cloacae Ciprofloxacin DILSHAD <=0.5 mcg/mL: Susceptible complex Enterobacter cloacae Ceftriaxone DILSHAD <=0.5 mcg/mL: Susceptible complex Enterobacter cloacae Cefuroxime Sodium DILSHAD >16 mcg/mL: Resistant complex Enterobacter cloacae Cefazolin DILSHAD >32 mcg/mL: Resistant complex Enterobacter cloacae Cefipime DILSHAD <=0.5 mcg/mL: Susceptible complex Enterobacter cloacae Cefoxitin DILSHAD >16 mcg/mL: Resistant complex Enterobacter cloacae Gentamicin DILSHAD 1 mcg/mL: Susceptible complex Enterobacter cloacae Levofloxacin DILSHAD <=1 mcg/mL: Susceptible complex Enterobacter cloacae Meropenem DILSHAD <=0.125 mcg/mL: complex Susceptible Enterobacter cloacae Tobramycin DILSHAD 1 mcg/mL: Susceptible complex Enterobacter cloacae Ampicillin/Sulbactam DILSHAD 16/8 mcg/mL: Resistant complex Enterobacter cloacae Trimethoprim/Sulfamethoxa DILSHAD <=0.5/9.5 mcg/mL: complex zole Susceptible Enterobacter cloacae Tetracycline DILSHAD 2 mcg/mL: Susceptible complex Enterobacter cloacae Piperacillin/Tazobactam DILSHAD <=2/4 mcg/mL: Susceptible complex Enterobacter cloacae Ertapenem DILSHAD <=0.125 mcg/mL: complex Susceptible Enterobacter cloacae Tigecycline DILSHAD 1 mcg/mL: Susceptible complex * Gram stain (10/22/2016 1:59 PM) Only the most recent of 6 results within the time period is included. Component Value Ref Range Gram stain isolate Many WBC's Few Gram positive cocci in pairs Comment: Specimen Information Specimen Source: Sputum Specimen Site: Induced Specimen Performing Laboratory Sputum - Induced [facility] DEPARTMENT OF PATHOLOGY AND GENOMIC MEDICINE [address] [place] [address] * XR Abdomen 1 Vw Portable (10/22/2016 11:55 AM) Only the most recent of 4 results within the time period is included. Specimen Performing Laboratory [facility] [address] [place] [address] Narrative EXAMINATION:XR ABDOMEN 1 VW PORTABLE CLINICAL HISTORY:Check feeding tube placement COMPARISON:KUB from 10/19/2016 IMPRESSION: Again noted is a Dobbhoff catheter coursing below the diaphragm. The distal tip is likely within the gastric antrum and has not significantly changed in position when compared to previous exam. However, more of the Dobbhoff tube appears to be coiled within the body the stomach. A nonspecific bowel gas pattern is noted. The bones of the abdomen and pelvis are unremarkable. Small bilateral pleural effusions. Stable positioning of 2 right-sided chest tubes. [facility]-[id number] Procedure Note Interface, Radiology Results Incoming - 10/22/2016 12:04 PM CDT EXAMINATION: XR ABDOMEN 1 VW PORTABLE CLINICAL HISTORY: Check feeding tube placement COMPARISON: KUB from 10/19/2016 IMPRESSION: Again noted is a Dobbhoff catheter coursing below the diaphragm. The distal tip is likely within the gastric antrum and has not significantly changed in position when compared to previous exam. However, more of the Dobbhoff tube appears to be coiled within the body the stomach. A nonspecific bowel gas pattern is noted. The bones of the abdomen and pelvis are unremarkable. Small bilateral pleural effusions. Stable positioning of 2 right-sided chest tubes. [facility]-[id number] * Ionized calcium, arterial (10/22/2016 2:23 AM) Only the most recent of 27 results within the time period is included. Component Value Ref Range Ionized calcium, arterial 0.99 (L) 1.11 - 1.32 mmol/L Specimen Performing Laboratory Blood [facility] DEPARTMENT OF PATHOLOGY AND GENOMIC MEDICINE [address] [place] [address] * Arterial blood gas (10/22/2016 2:23 AM) Only the most recent of 25 results within the time period is included. Component Value Ref Range pH, arterial 7.46 (H) 7.35 - 7.45 pCO2, arterial 38 35 - 45 mmHg pO2, arterial 162 (H) 80 - 90 mmHg Bicarbonate, arterial 26.8 21.0 - 28.0 mmol/L Base excess, arterial 3 (H) -2 - 2 mEq/L O2 saturation, arterial 99 95 - 100 % Specimen Performing Laboratory Blood [facility] DEPARTMENT OF PATHOLOGY AND [facility] [address] [place] [address] * Hepatic function panel (10/22/2016 1:31 AM) Only the most recent of 4 results within the time period is included. Component Value Ref Range Albumin 3.7 3.5 - 5.0 g/dL Total bilirubin 1.6 (H) 0.0 - 1.2 mg/dL Bilirubin direct 0.5 (H) 0.0 - 0.3 mg/dL Alkaline phosphatase 169 (H) 40 - 129 U/L Protein 6.5 6.3 - 8.3 g/dL Comment: Pep 4.6-7.0 g/dL 1 week 4.4-7.6 g/dL 7 months-1year 5.1-7.3 g/dL 1-2 years 5.6-7.5 g/dL >3 years 6.0-8.0 g/dL 18-150 6.3-8.3 g/dL ALT 219 (H) 5 - 50 U/L AST 136 (H) 10 - 50 U/L Specimen Performing Laboratory Plasma specimen [facility] DEPARTMENT OF PATHOLOGY AND [facility] [address] [place] [address] * Transfuse RBC (10/21/2016 5:33 AM) Only the most recent of 8 results within the time period is included. * Smear review (10/21/2016 1:22 AM) Only the most recent of 3 results within the time period is included. Component Value Ref Range Platelet slide review Gisele adequate Anisocytosis Moderate Polychromasia Moderate Enlarged platelets Moderate (A) Giant platelets Occasional Specimen Performing Laboratory [facility] DEPARTMENT OF PATHOLOGY AND GENOMIC MEDICINE [address] [place] [address] * US Abdomen Complete (10/19/2016 7:10 PM) Specimen Performing Laboratory [address] [address] Narrative Examination:US ABDOMEN COMPLETE Clinical history:"ABNORMAL LIVER FUNCTION TESTS" Comparison:There are no prior studies for comparison. IMPRESSION: Liver:The echogenicity of the liver is marginally increased; steatosis should be considered.There is no evidence of a focal mass or of intrahepatic biliary ductal dilatation. Gallbladder:The gallbladder is nonvisualized described. Main portal vein:The portal vein is unremarkably patent and measures 14 mm in luminal diameter. Common bile duct:The common bile duct measures 3.2 mm in luminal diameter. Pancreas:The pancreas is not visualized and cannot be evaluated. Spleen:The spleen is without evidence of focal abnormalities. The spleen measures 10.7 cm in maximal dimension. Kidneys:The right kidney measures 11.2 cm in maximal dimension and the left kidney measures 11.7 cm in maximal dimension.A cyst that appears simple is seen within the left kidney and measures 2.6 cm in diameter.Otherwise, there are no other sonographically apparent renal abnormalities. Abdominal aorta:The abdominal aorta is partially visualized; visualized portions of the abdominal aorta are without evidence of aneurysm. Inferior vena cava:The visualized portions of the inferior vena cava are without evidence of aneurysm. Other:There is no evidence of ascites. There are no apparent pleural effusions. [id number] Procedure Note Hm Interface, Radiology Results Incoming - 10/19/2016 7:41 PM CDT Examination: US ABDOMEN COMPLETE Clinical history: "ABNORMAL LIVER FUNCTION TESTS" Comparison: There are no prior studies for comparison. IMPRESSION: Liver: The echogenicity of the liver is marginally increased; steatosis should be considered. There is no evidence of a focal mass or of intrahepatic biliary ductal dilatation. Gallbladder: The gallbladder is nonvisualized described. Main portal vein: The portal vein is unremarkably patent and measures 14 mm in luminal diameter. Common bile duct: The common bile duct measures 3.2 mm in luminal diameter. Pancreas: The pancreas is not visualized and cannot be evaluated. Spleen: The spleen is without evidence of focal abnormalities. The spleen measures 10.7 cm in maximal dimension. Kidneys: The right kidney measures 11.2 cm in maximal dimension and the left kidney measures 11.7 cm in maximal dimension. A cyst that appears simple is seen within the left kidney and measures 2.6 cm in diameter. Otherwise, there are no other sonographically apparent renal abnormalities. Abdominal aorta: The abdominal aorta is partially visualized; visualized portions of the abdominal aorta are without evidence of aneurysm. Inferior vena cava: The visualized portions of the inferior vena cava are without evidence of aneurysm. Other: There is no evidence of ascites. There are no apparent pleural effusions. [id number] * Partial thromboplastin time, activated (10/19/2016 4:00 AM) Only the most recent of 10 results within the time period is included. Component Value Ref Range PTT 33.6 23.0 - 36.0 sec Comment: PTT therapeutic range for unfractionated heparin is 61.0-112.0 seconds which corresponds to Anti-Xa 0.3-0.7 U/ml. Specimen Performing Laboratory Blood [facility] DEPARTMENT OF PATHOLOGY AND GENOMIC MEDICINE [address] [place] [address] * Prothrombin time with INR (10/19/2016 4:00 AM) Only the most recent of 14 results within the time period is included. Component Value Ref Range Prothrombin time 17.6 (H) 12.0 - 15.0 sec INR 1.4 Comment: The International Normalized Ratio (INR) is a therapeutic monitoring tool for patients who are stable on oral anticoagulant therapy. An INR of 2.0-3.0 is suggested for deep vein thrombosis/pulmonary embolism. Specimen Performing Laboratory Blood [facility] DEPARTMENT OF PATHOLOGY AND GENOMIC MEDICINE [address] [place] [address] * CBC hemogram (10/19/2016 4:00 AM) Only the most recent of 12 results within the time period is included. Component Value Ref Range WBC 9.11 4.50 - 11.00 k/uL RBC 2.63 (L) 4.40 - 6.00 m/uL HGB 8.0 (L) 14.0 - 18.0 g/dL HCT 25.3 (L) 41.0 - 51.0 % MCV 96.2 82.0 - 100.0 fL MCH 30.4 27.0 - 34.0 pg MCHC 31.6 31.0 - 37.0 g/dL RDW - SD 51.6 37.0 - 55.0 fL MPV 12.3 8.8 - 13.2 fL Platelet count 229 150 - 400 k/uL Nucleated RBC 0.00 /100 WBC Specimen Performing Laboratory Blood [facility] DEPARTMENT OF PATHOLOGY AND [facility] [address] [place] [address] * Thyroid stimulating hormone (10/17/2016 3:46 PM) Only the most recent of 6 results within the time period is included. Component Value Ref Range TSH 7.16 (H) 0.27 - 4.20 uIU/mL Specimen Performing Laboratory Plasma specimen [facility] DEPARTMENT OF PATHOLOGY AND [facility] [address] [place] [address] * Aerobic culture (10/16/2016 1:26 PM) Only the most recent of 2 results within the time period is included. Component Value Ref Range Aerobic culture isolate Enterobacter cloacae complex Many The performance characteristics of this assay on this isolate were validated by the Microbiology Laboratory at [facility]. This source has not been approved by the U.S. Food and Drug Administration. The results are not intended to be used as the sole means for clinical diagnosis or patient management. The Microbiology Laboratory is authorized under the clinical Laboratory Improvement Amendments of 1988 (CLIA-88) to perform high complexity testing. (A) Comment: Specimen Information Specimen Source: Pleural fluid Specimen Site: Right Aerobic culture isolate Enterobacter cloacae complex Many The performance characteristics of this assay on this isolate were validated by the Microbiology Laboratory at [facility]. This source has not been approved by the U.S. Food and Drug Administration. The results are not intended to be used as the sole means for clinical diagnosis or patient management. The Microbiology Laboratory is authorized under the clinical Laboratory Improvement Amendments of 1988 (CLIA-88) to perform high complexity testing. (A) Specimen Performing Laboratory Pleural fluid - Right [facility] DEPARTMENT OF PATHOLOGY AND GENOMIC MEDICINE [address] [place] [address] Organism Antibiotic Method Susceptibility Enterobacter cloacae Amikacin DILSHAD <=4 mcg/mL: Susceptible complex Enterobacter cloacae Amoxicillin/Clavulanate DILSHAD >16/8 mcg/mL: Resistant complex Enterobacter cloacae Ampicillin/Sulbactam DILSHAD 16/8 mcg/mL: Resistant complex Enterobacter cloacae Ampicillin DILSHAD >16 mcg/mL: Resistant complex Enterobacter cloacae Aztreonam DILSHAD <=1 mcg/mL: Susceptible complex Enterobacter cloacae Cefazolin DILSHAD >32 mcg/mL: Resistant complex Enterobacter cloacae Cefoxitin DILSHAD >16 mcg/mL: Resistant complex Enterobacter cloacae Ceftazidime DILSHAD <=0.5 mcg/mL: Susceptible complex Enterobacter cloacae Ceftriaxone DILSHAD <=0.5 mcg/mL: Susceptible complex Enterobacter cloacae Cefuroxime Sodium DILSHAD >16 mcg/mL: Resistant complex Enterobacter cloacae Ciprofloxacin DILSHAD <=0.5 mcg/mL: Susceptible complex Enterobacter cloacae Ertapenem DILSHAD <=0.125 mcg/mL: complex Susceptible Enterobacter cloacae Gentamicin DILSHAD 1 mcg/mL: Susceptible complex Enterobacter cloacae Levofloxacin DILSHAD <=1 mcg/mL: Susceptible complex Enterobacter cloacae Meropenem DILSHAD <=0.125 mcg/mL: complex Susceptible Enterobacter cloacae Piperacillin/Tazobactam DILSHAD 4/4 mcg/mL: Susceptible complex Enterobacter cloacae Tetracycline DILSHAD <=1 mcg/mL: Susceptible complex Enterobacter cloacae Tobramycin DILSHAD 1 mcg/mL: Susceptible complex Enterobacter cloacae Trimethoprim/Sulfamethoxa DILSHAD <=0.5/9.5 mcg/mL: complex zole Susceptible Enterobacter cloacae Cefipime DILSHAD <=0.5 mcg/mL: Susceptible complex Enterobacter cloacae Amikacin DILSHAD <=4 mcg/mL: Susceptible complex Enterobacter cloacae Amoxicillin/Clavulanate DILSHAD >16/8 mcg/mL: Resistant complex Enterobacter cloacae Ampicillin/Sulbactam DILSHAD 16/8 mcg/mL: Resistant complex Enterobacter cloacae Ampicillin DILSHAD >16 mcg/mL: Resistant complex Enterobacter cloacae Aztreonam DILSHAD <=1 mcg/mL: Susceptible complex Enterobacter cloacae Cefazolin DILSHAD >32 mcg/mL: Resistant complex Enterobacter cloacae Cefoxitin DILSHAD >16 mcg/mL: Resistant complex Enterobacter cloacae Ceftazidime DILSHAD <=0.5 mcg/mL: Susceptible complex Enterobacter cloacae Ceftriaxone DILSHAD <=0.5 mcg/mL: Susceptible complex Enterobacter cloacae Cefuroxime Sodium DILSHAD >16 mcg/mL: Resistant complex Enterobacter cloacae Ciprofloxacin DILSHAD <=0.5 mcg/mL: Susceptible complex Enterobacter cloacae Ertapenem DILSHAD <=0.125 mcg/mL: complex Susceptible Enterobacter cloacae Gentamicin DILSHAD 1 mcg/mL: Susceptible complex Enterobacter cloacae Levofloxacin DILSHAD <=1 mcg/mL: Susceptible complex Enterobacter cloacae Meropenem DILSHAD <=0.125 mcg/mL: complex Susceptible Enterobacter cloacae Piperacillin/Tazobactam DILSHAD <=2/4 mcg/mL: Susceptible complex Enterobacter cloacae Tetracycline DILSHAD <=1 mcg/mL: Susceptible complex Enterobacter cloacae Tobramycin DILSHAD 1 mcg/mL: Susceptible complex Enterobacter cloacae Trimethoprim/Sulfamethoxa DILSHAD <=0.5/9.5 mcg/mL: complex zole Susceptible Enterobacter cloacae Cefipime DILSHAD <=0.5 mcg/mL: Susceptible complex * Blood culture, aerobic & anaerobic (10/16/2016 1:10 PM) Only the most recent of 4 results within the time period is included. Component Value Ref Range Blood culture isolate No growth after 5 days of incubation. Comment: Specimen Information Specimen Source: Blood Specimen Site: Hand, right Specimen Performing Laboratory Blood - Hand, right [facility] DEPARTMENT OF PATHOLOGY AND GENOMIC MEDICINE [address] [place] [address] * Total iron binding capacity (10/16/2016 12:59 PM) Only the most recent of 3 results within the time period is included. Component Value Ref Range Iron level 22 (L) 59 - 158 ug/dL Iron binding capacity 94 (L) 200 - 400 ug/dL % Saturation 23.4 20.0 - 40.0 % Specimen Performing Laboratory Plasma specimen [facility] DEPARTMENT OF PATHOLOGY AND GENOMIC MEDICINE [address] [place] [id number] * Erythropoietin (10/16/2016 12:59 PM) Component Value Ref Range Erythropoietin 14.9 2.6 - 18.5 mIU/mL Specimen Performing Laboratory Serum [facility] DEPARTMENT OF PATHOLOGY AND [facility] [address] [place] [address] Narrative HH added and read back to Lolis at 1615 10/16/16 MLKL2 * Hemoglobin & hematocrit (10/16/2016 12:59 PM) Only the most recent of 5 results within the time period is included. Component Value Ref Range HGB 7.6 (L) 14.0 - 18.0 g/dL HCT 23.7 (L) 41.0 - 51.0 % Specimen Performing Laboratory [facility] DEPARTMENT OF PATHOLOGY AND GENOMIC MEDICINE [address] [place] [address] Narrative HH added and read back to Lolis at 1615 10/16/16 MLKL2 * Reticulocyte count (10/16/2016 12:59 PM) Only the most recent of 2 results within the time period is included. Component Value Ref Range Retic %, auto 4.7 (H) 0.5 - 2.1 % Retic absolute, auto 0.1140 0.0220 - 0.1260 m/uL Specimen Performing Laboratory Blood [facility] [place] [id number] * Transferrin level (10/16/2016 12:59 PM) Only the most recent of 2 results within the time period is included. Component Value Ref Range Transferrin 82 (L) 200 - 360 mg/dL Specimen Performing Laboratory Plasma specimen [facility] [address] [address] * Haptoglobin (10/16/2016 12:59 PM) Only the most recent of 2 results within the time period is included. Component Value Ref Range Haptoglobin 199 30 - 200 mg/dL Specimen Performing Laboratory Plasma specimen [facility] [place] [id number] * Folate RBC (group test) (10/16/2016 12:59 PM) Only the most recent of 2 results within the time period is included. Component Value Ref Range RBC folate 1,763 (H) 499 - 1,504 ng/mL Specimen Performing Laboratory Blood [facility] [place] [id number] Narrative HH added and read back to Lolis at 1615 10/16/16 MLKL2 * Ferritin level (10/16/2016 12:59 PM) Only the most recent of 3 results within the time period is included. Component Value Ref Range Ferritin level 1,757 (H) 30 - 400 ng/mL Specimen Performing Laboratory Plasma specimen [facility] [address] [address] * Vitamin B12 level (10/16/2016 12:59 PM) Only the most recent of 2 results within the time period is included. Component Value Ref Range Vitamin B12 744 211 - 946 pg/mL Comment: Significant overlap exists between normal and deficiency states. However, most patients with deficiencies will have Serum B12 <200 pg/mL. Specimen Performing Laboratory Serum [facility] [address] [address] Narrative HH added and read back to Lolis at 1615 10/16/16 MLKL2 * Sodium level, syringe (10/12/2016 11:50 AM) Only the most recent of 8 results within the time period is included. Component Value Ref Range Sodium, syringe 141 135 - 148 mEq/L Specimen Performing Laboratory Blood [facility] [place] [address] * Potassium, syringe (10/12/2016 11:50 AM) Only the most recent of 8 results within the time period is included. Component Value Ref Range Potassium, syringe 3.8 3.5 - 5.0 mEq/L Specimen Performing Laboratory Blood [facility] [place] [address] * Hemoglobin, syringe (10/12/2016 11:50 AM) Only the most recent of 9 results within the time period is included. Component Value Ref Range Hemoglobin, syringe 7.6 (L) 14.0 - 18.0 g/dL Specimen Performing Laboratory Blood [facility] [place] [address] * Glucose level, syringe (10/12/2016 11:50 AM) Only the most recent of 8 results within the time period is included. Component Value Ref Range Glucose, syringe 109 (H) 65 - 99 mg/dL Specimen Performing Laboratory Blood [facility] [place] [address] * Us duplex venous lower extremity (10/11/2016 10:03 PM) Only the most recent of 2 results within the time period is included. Specimen Performing Laboratory [facility] [address] [place] [address] Narrative Vascular Ultrasound Laboratory Lower Extremity Venous Report [address] [place] [address] Pat.Name:NAY RUDOLPH Pat.ID:[id number] .Date: 10/11/2016Refer.MD:ALLAN COVINGTON MD Exam Time: 8:36:00 PMStudy Type:LE Venous Height:173cm Weight:72kg BSA: 1.85 m2 DOBAge:[age]Y Sex: MALESonogrphr: Rajendra Morel RVT Pat. Stat.:Inpatient Room:[place] [address] TapeVol: CN, CPT - 4: 41216 Echo Event ID:[id number] Order ID:[id number] Reason for Study:Bilateral foot edema. Status post redo mitral valve repair. History / Clinical:Other,edema Race: SUMMARY: DUPLEX SCAN OBSERVATIONS Deep VeinsSuperficial Veins RightLeft RightLeft EIV GSV (prox) NormalNormal CFV Normal Normal (above knee) Femoral Normal Normal GSV (dist) Normal Normal Profunda Normal Normal (below knee) Popliteal Normal Normal PT (prox) Normal NormalSSV Not Visualized Not Visualized PT (dist) Normal Normal Peroneal Normal Normal RIGHT:There is normal compressibility with no evidence of echogenic material noted within the lumen of the visualized veins. One of the peroneal veins was not visualized. Colorflow and Doppler signals are normal. LEFT: There is normal compressibility with no evidence of echogenic material noted within the lumen of the visualized veins. Colorflow and Doppler signals are normal. PRELIMINARY FINDINGS 1.No evidence of deep venous thrombosis in either lower extremity. PHYSICIAN INTERPRETATION Venous examination of the both lower extremities demonstrated no evidence of venous thrombosis in the visualized veins. Signed 10/12/2016 12:40 AM Chacorta Clay MD, RPVI Procedure Note Interface, Radiology Results In - 10/12/2016 12:40 AM CDT Vascular Ultrasound Laboratory Lower Extremity Venous Report [address] [place] [address] Pat.Name: NAY RUDOLPH Pat.ID: [id number] .Date: 10/11/2016 Refer.MD: ALLAN COVINGTON MD Exam Time: 8:36:00 PM Study Type:LE Venous Height: 173cm Weight: 72kg BSA: 1.85 m2 Age: 11 1935,81Y Sex: MALE Sonogrphr: Rajendra Morel RVT Pat. Stat.:Inpatient Room: [address] Vol: CN, CPT - 4: [address] Echo Event ID:[id number] Order ID: [id number] Reason for Study:Bilateral foot edema. Status post redo mitral valve repair. History / Clinical:Other, edema Race: SUMMARY: DUPLEX SCAN OBSERVATIONS Deep Veins Superficial Veins Right Left Right Left EIV GSV (prox) Normal Normal CFV Normal Normal (above knee) Femoral Normal Normal GSV (dist) Normal Normal Profunda Normal Normal (below knee) Popliteal Normal Normal PT (prox) Normal Normal SSV Not Visualized Not Visualized PT (dist) Normal Normal Peroneal Normal Normal RIGHT: There is normal compressibility with no evidence of echogenic material noted within the lumen of the visualized veins. One of the peroneal veins was not visualized. Colorflow and Doppler signals are normal. LEFT: There is normal compressibility with no evidence of echogenic material noted within the lumen of the visualized veins. Colorflow and Doppler signals are normal. PRELIMINARY FINDINGS 1. No evidence of deep venous thrombosis in either lower extremity. PHYSICIAN INTERPRETATION Venous examination of the both lower extremities demonstrated no evidence of venous thrombosis in the visualized veins. Signed 10/12/2016 12:40 AM Chacorta Clay MD, RPVI * Pv duplex venous upper extremity (10/11/2016 10:03 PM) Specimen Performing Laboratory [facility] [address] [place] [address] Narrative Vascular Ultrasound Laboratory Upper Extremity Venous Report [address] [place] [address] Pat.Name:NAY RUDOLPH Pat.ID:[id number] .Date: 10/11/2016Refpamella.MD:ALLAN COVINGTON MD Exam Time: 8:35:00 PMStudy Type:UE Venous DOBAge:1935,81YSex: MALE Sonogrphr: Rajendra Morel, RVTPat. Stat.:Inpatient Room:[place] [address] TapeVol: MONA, CPT - 4: 60087 Echo Event ID:[id number] Order ID:[id number] Reason for Study:Left greater than right forearm and hand edema. Right upper arm PICC present, right jugular vein CVC present.Status post redo mitral valve repair. History / Clinical:Other,edema Race: SUMMARY: DUPLEX SCAN OBSERVATIONS Right Left IJNot Visualized Normal SubclavianNormal Normal AxillaryNormal Normal BrachialNormal Normal BasilicPartial Normal CephalicNormal Normal RIGHT:Dilated partially compressible basilic vein with sonolucent thrombus filling the lumen of the vein.Doppler signals are present. LEFT:There is normal compressibility and no evidence of echogenic material noted within the lumen of the visualized veins. Colorflow and Doppler signals are normal. PRELIMINARY FINDINGS 1.Acute partial venous thrombosis of the right basilic vein. PHYSICIAN INTERPRETATION Venous examination of the both upper extremities and neck demonstrated acute partial venous thrombosis of the right basilic vein. Signed 10/12/2016 12:41 AM Chacorta Clay MD, RPVI Procedure Note Interface, Radiology Results In - 10/12/2016 12:41 AM CDT Vascular Ultrasound Laboratory Upper Extremity Venous Report [address] [place] [address] Pat.Name: NAY RUDOLPH Pat.ID: [id number] .Date: 10/11/2016 Refer.MD: ALLAN COVINGTON MD Exam Time: 8:35:00 PM Study Type:UE Venous Age: 11 1935,81Y Sex: MALE Sonogrphr: Rajendra Morel RVT Pat. Stat.:Inpatient Room: [place] [address] Tape Vol: CN, CPT - 4: 38981 Echo Event ID:[id number] Order ID: [id number] Reason for Study:Left greater than right forearm and hand edema. Right upper arm PICC present, right jugular vein CVC present. Status post redo mitral valve repair. History / Clinical:Other, edema Race: SUMMARY: DUPLEX SCAN OBSERVATIONS Right Left IJ Not Visualized Normal Subclavian Normal Normal Axillary Normal Normal Brachial Normal Normal Basilic Partial Normal Cephalic Normal Normal RIGHT: Dilated partially compressible basilic vein with sonolucent thrombus filling the lumen of the vein. Doppler signals are present. LEFT: There is normal compressibility and no evidence of echogenic material noted within the lumen of the visualized veins. Colorflow and Doppler signals are normal. PRELIMINARY FINDINGS 1. Acute partial venous thrombosis of the right basilic vein. PHYSICIAN INTERPRETATION Venous examination of the both upper extremities and neck demonstrated acute partial venous thrombosis of the right basilic vein. Signed 10/12/2016 12:41 AM Chacorta Clay MD, RPVI * Echocardiogram complete w contrast and 3D if needed (10/11/2016 2:00 PM) Specimen Performing Laboratory [facility] [address] [place] [address] Narrative Echocardiography Report [address] [place] [address] Wall motion diagram can be located in the PACS image link Pat.Name:NAY RUDOLPH Pat.ID:[id number] .Date: 10/11/2016Refer.MD:LENARD SALGADO MD Exam Time: 1:58:00 PMStudy Type:Routine Echo Height:69inWeight:157lb BSA: 1.87 m2 DOBAge:[age]Y Sex: MALEBP: 118/57 HR:80 bpmSonogrphr: DEX Barber Pat. Stat.:Inpatient Room:[facility] Study Status:Final Echo Event ID:[id number] Order ID:[id number] Reason for Study:s/p MV repair and Right VATS History / Clinical:Hypertension, Mitral prolapse, Hyperlipidemia Procedures:2D Echo, Colorflow Doppler, Portable Race:C SUMMARY: LV systolic function is normal. No pericardial effusion. s/p Mitral valve repair with placement of annuloplasty ring. Doppler interrogation shows no mitral regurgitation and mild stenosis. Estimated PA systolic pressure is 35-40 mmHg, assuming a mean RAP of 5-10 mmHg. FINDINGS: LV: LV size is normal. LV systolic function is normal. Overall wallmotion is normal. Estimated EF is 55-59%. RV: RV size is normal. RV systolic function is normal. LA: LA volume is moderately to severely enlarged. RA: RA size is normal. AO: Aortic root diameter is normal. SARA: No pericardial effusion. AV: Mild thickening of AV leaflets. Mild aortic regurgitation. MV: Mild thickening of mitral leaflets. s/p Mitral valve repair withplacement of annuloplasty ring. Doppler interrogation showsno mitral regurgitation and mild stenosis. PV: No structural PV abnormalities noted. TV: No structural TV abnormalities noted. Mild tricuspid regurgitation Tomas: Unable to assess diastolic function. Other:Estimated PA systolic pressure is 35-40 mmHg, assuming a meanRAP of 5-10 mmHg. MEASUREMENTS: 2D Parasternal [place] LVOT 2.3 cmLA Ds 4.7 cm LVIDd4.6 cmIndex 2.5 cm/m Ao An2 cm LVIDs3.4 cmAo Rtd 3 cm Index1.6 cm/m LV%fs 26.3 % LV Wnma194.6 g(122-174) IVSd 1 cmLVM Index 105.7 g/m2 LVPWd1.4 cmRWT 0.6 LA Sng Plane LA Area 24.8 cm2(8.8-23.4) LA Vol90.2 ml Index48.2 ml/m LA LngAx 5.7 cm RA Sng Plane RA Area 12.9 cm2(8.3-19.5) RA Vol 28 ml Index15 ml/m RA LngAx 4.9 cm DOPPLER LVOT For Flow LVOT Area4.2 cm2 LVOT SV 86.6 ml JEMTobUsy030.1 cm/sHR 80.5 bpm LVOTpkPG 5.3 mmHgLVOT CO 7 l/min LVOTmnPG 2.8 mmHgLVOT CI 3.7 l/m/m2 LVOT TVI20.8 cm MV For Flow/Valve Assess MV pkVel 197.9 cm/sMV Dec T 349 msec MV pkPG 15.7 mmHgMV TVI 46.7 cm MV Mean G5.8 mmHgMV Area P1/2t2.2 cm2(4-6) Signed 10/11/2016 06:19 PM Kentrell Clark M.D. Procedure Note Interface, Radiology Results In - 10/11/2016 6:19 PM CDT Echocardiography Report [address] [place] [address] Wall motion diagram can be located in the PACS image link Pat.Name: NAY RUDOLPH Pat.ID: [id number] .Date: 10/11/2016 Refer.MD: LENARD SALGADO MD Exam Time: 1:58:00 PM Study Type:Routine Echo Height: 69in Weight: 157lb BSA: 1.87 m2 Age: 11 1935,81Y Sex: MALE BP: 118/57 HR: 80 bpm Sonogrphr: DEX Barber Pat. Stat.:Inpatient Room: [facility] Study Status:Final Echo Event ID:[id number] Order ID: [id number] Reason for Study:s/p MV repair and Right VATS History / Clinical:Hypertension, Mitral prolapse, Hyperlipidemia Procedures:2D Echo, Colorflow Doppler, Portable Race: C SUMMARY: LV systolic function is normal. No pericardial effusion. s/p Mitral valve repair with placement of annuloplasty ring. Doppler interrogation shows no mitral regurgitation and mild stenosis. Estimated PA systolic pressure is 35-40 mmHg, assuming a mean RAP of 5-10 mmHg. FINDINGS: LV: LV size is normal. LV systolic function is normal. Overall wall motion is normal. Estimated EF is 55-59%. RV: RV size is normal. RV systolic function is normal. LA: LA volume is moderately to severely enlarged. RA: RA size is normal. AO: Aortic root diameter is normal. SARA: No pericardial effusion. AV: Mild thickening of AV leaflets. Mild aortic regurgitation. MV: Mild thickening of mitral leaflets. s/p Mitral valve repair with placement of annuloplasty ring. Doppler interrogation shows no mitral regurgitation and mild stenosis. PV: No structural PV abnormalities noted. TV: No structural TV abnormalities noted. Mild tricuspid regurgitation Tomas: Unable to assess diastolic function. Other: Estimated PA systolic pressure is 35-40 mmHg, assuming a mean RAP of 5-10 mmHg. MEASUREMENTS: 2D Parasternal [place] LVOT 2.3 cm LA Ds 4.7 cm LVIDd 4.6 cm Index 2.5 cm/m Ao An 2 cm LVIDs 3.4 cm Ao Rtd 3 cm Index 1.6 cm/m LV%fs 26.3 % LV Mass 197.6 g (122-174) IVSd 1 cm LVM Index 105.7 g/m2 LVPWd 1.4 cm RWT 0.6 LA Sng Plane LA Area 24.8 cm2 (8.8-23.4) LA Vol 90.2 ml Index 48.2 ml/m LA LngAx 5.7 cm RA Sng Plane RA Area 12.9 cm2 (8.3-19.5) RA Vol 28 ml Index 15 ml/m RA LngAx 4.9 cm DOPPLER LVOT For Flow LVOT Area 4.2 cm2 LVOT SV 86.6 ml LVOTpkVel 115.1 cm/s HR 80.5 bpm LVOTpkPG 5.3 mmHg LVOT CO 7 l/min LVOTmnPG 2.8 mmHg LVOT CI 3.7 l/m/m2 LVOT TVI 20.8 cm MV For Flow/Valve Assess MV pkVel 197.9 cm/s MV Dec T 349 msec MV pkPG 15.7 mmHg MV TVI 46.7 cm MV Mean G 5.8 mmHg MV Area P1/2t 2.2 cm2 (4-6) Signed 10/11/2016 06:19 PM Kentrell Clark M.D. * Insert arterial line (10/11/2016 7:26 AM) Only the most recent of 2 results within the time period is included. Narrative MAYA Steinberg 10/11/20167:26 AM Arterial Line Insertion Date/Time: 10/11/2016 7:25 AM Performed by: HOWARD TORREZ Authorized by: HOWARD TORREZ Indications: Indications: hemodynamic monitoring and multiple ABGs Pre-procedure details: Skin preparation:2% Chlorhexidine Preparation: Patient was prepped and draped in sterile fashion Sedation: Sedation type:Moderate (conscious) sedation Anesthesia (see MAR for exact dosages): Anesthesia method:Local infiltration Local anesthetic:Lidocaine 1% w/o epi Procedure details: Location:L radial Needle gauge:20 G Placement technique:Seldinger Number of attempts:1 Transducer: waveform confirmed Post-procedure details: Post-procedure:Sutured and sterile dressing applied CMS:Normal Patient tolerance of procedure:Tolerated well, no immediate complications * T4, free (10/11/2016 2:54 AM) Only the most recent of 2 results within the time period is included. Component Value Ref Range T4, free 1.0 0.9 - 1.7 ng/dL Specimen Performing Laboratory Plasma specimen [facility] DEPARTMENT OF PATHOLOGY AND GENOMIC MEDICINE [address] [place] [address] * Central line (10/09/2016 7:24 PM) Narrative Patricio Ramirez MD 10/08/20161:37 PM Central line Performed by: PATRICIO RAMIREZ Authorized by: BLADE LOMAX Patient Location:OR Staff: Anesthesiologist:BLADE LOMAX Resident/4 H YOUTH DEVELOPMENT SPECIALIST:MARNIE HURT Performed by:Resident/4 H YOUTH DEVELOPMENT SPECIALIST Preprocedure:patient identified, IV checked, site and side verified, risks and benefits discussed, procedure verified, surgical consent complete, patient position confirmed, monitors and equipment checked and pre-op evaluation complete MSBT: antiseptic used during central venous catheter insertion, all elements of maximal sterile barrier technique followed, hand hygiene performed prior to central venous catheter insertion, cap/gown used by other personnel during central venous catheter insertion, solutions labeled and all ports not used during insertion clamped Indications: Indications:Vascular access and central pressure monitoring Anesthesia: Anesthesia:General Procedure details: Patient position:Trendelenburg Catheter Type:Double lumen Catheter Size:8 Fr Catheter Site: internal jugular vein Catheter site laterality:Right Pre-procedure: Landmarks identified Ultrasound guidance used: Yes Ultrasound image saved: Yes Number of attempts:1 Successful placement: Yes Guidewire removal: Guidewire removal is confirmed Post-procedure: Post-procedure: line sutured, sterile dressing applied per protocol and ports flushed with saline Post-procedure:Blood cleaned with CHG and sterile caps on all hubs Assessment:Blood return through all ports and free fluid flow Patient tolerance:Patient tolerated the procedure well with no immediate complications * ANESTHESIA INTUBATION (10/09/2016 7:24 PM) Narrative Patricio Ramirez MD 10/08/2016 11:31 AM Airway Date/Time: 10/08/2016 11:06 AM Performed by: PATRICIO RAMIREZ Authorized by: BLADE LOMAX Location:OR Difficult Airway: No Anesthesiologist:BLADE LOMAX Other Anesthesia Staff:MARNIE HURT Performed by: other anesthesia staff Preoxygenated with 100% O2: Yes C-spine Precautions Maintained Throughout: Yes Final Airway Type:Endotracheal airway Final Endotracheal Airway:ETT - double lumen left Cuffed: Yes Technique Used:Direct laryngoscopy Devices/Methods Used in Placement:Fiberoptic Insertion Site:Oral Blade Type:Catalan Laryngoscope Blade/Videolaryngoscope Blade Size:2 ETT Double Lumen (fr):39 Cuff at minimum occlusion pressure: Yes Measured from:Lips Placement Verified by: CO2 detection, direct visualization and fiber optic visualization Laryngoscopic view:Grade I - full view of glottis Rapid Sequence Induction (RSI): No Modified RSI: No Number of Attempts at Approach:1 8.0 single lumen ETT exchanged for 39fr BERNA. Dl x 2 by L. Roser, SRNA. MIl 2. Grade I view. SLT d/c and BERNA inserted. Fiberoptic visualization of BERNA placement. Atraumatic intubation. +ETCO2. * ANESTHESIA SHAYY (10/09/2016 7:24 PM) Narrative Patricio Ramirez MD 10/08/20161:39 PM Procedure Performed: SHAYY Start Time: End Time: Preanesthesia Checklist: Patient identified, IV assessed, risks and benefits discussed, monitors and equipment assessed, procedure being performed at surgeon's request, anesthesia consent obtained. General Procedure Information Diagnostic Indications for Echo:hemodynamic monitoring and suspected pericardial effusion Physician Requesting Echo: LENARD SALGADO Location performed:OR Intubated Bite block placed Heart visualized Probe Insertion:Easy Probe Type:Multiplane Modalities:2D only, color flow mapping, continuous wave Doppler and pulse wave Doppler Echocardiographic and Doppler Measurements Ventricles Right Ventricle: Cavity size normal.Global function normal. Left Ventricle: Cavity size normal.Global Function normal. Valves Aortic Valve: Annulus normal.Stenosis not present.Regurgitation absent. Mitral Valve: Annulus normal.Stenosis not present.Regurgitation absent. Tricuspid Valve: Annulus normal.Stenosis not present. Pulmonic Valve: Annulus normal.Stenosis not present. Aorta Ascending Aorta: Size normal. Aortic Arch: Size normal. Descending Aorta: Size normal. Atria Right Atrium: Size normal. Left Atrium: Size normal.Left atrial appendage normal. Septa Atrial Septum: Intra-atrial septal morphology normal. Ventricular Septum: Intra-ventricular septum morphology normal. Other Findings Pericardium:pericardial effusion Pleural Effusion:right Anesthesia Information Performed with residents Anesthesiologist:BLADE LOMAX Residents/CRNAs:PATRICIO RAMIREZ Echocardiogram Comments: Pre-Surgery: Normal biventricular function. Moderate anterior pericardial effusion. Large right pleural effusion. Mitral ring evident without leak. Normal diastolic function. Post:surgical: Complete resolution of effusion. Unchanged ventricular function. * Surgical pathology request (10/08/2016 3:01 PM) Component Value Ref Range Surgical pathology report See link below for PDF Lab Report Specimen Performing Laboratory [facility] DEPARTMENT OF PATHOLOGY AND GENOMIC MEDICINE [address] [place] [address] * Carcinoembryonic antigen (CEA) (10/08/2016 2:42 PM) Component Value Ref Range CEA 2.0 0.0 - 3.8 ng/mL Comment: Reference range for heavy smokers: 0.0 - 5.5 ng/mL The G[employer]ME[employer] Suman 8000 CEA immunoassay was used. Results obtained with different assay methods or kits should not be used interchangeably and may be different. Specimen Performing Laboratory Serum [facility] [place] [address] * Fungus smear (10/08/2016 2:17 PM) Component Value Ref Range Fungus smear No fungi observed. Comment: Specimen Information Specimen Source: Tissue Specimen Site: Pleural cavity Specimen Performing Laboratory Tissue - Pleural cavity [facility] [place] [address] * AFB culture (10/08/2016 2:17 PM) Only the most recent of 2 results within the time period is included. Component Value Ref Range AFB culture isolate No growth after 6 weeks of incubation. Comment: Specimen Information Specimen Source: Tissue Specimen Site: Pleural cavity Specimen Performing Laboratory Tissue - Pleural cavity [facility] [place] [address] * AFB stain (10/08/2016 2:17 PM) Only the most recent of 2 results within the time period is included. Component Value Ref Range AFB stain No acid fast bacilli (AFB) seen. Comment: Specimen Information Specimen Source: Tissue Specimen Site: Pleural cavity Specimen Performing Laboratory Tissue - Pleural cavity [facility] [place]PARTMENT [place] [address] * Fungus culture (10/08/2016 2:17 PM) Component Value Ref Range Fungus culture isolate No growth after 4 weeks of incubation. Comment: Specimen Information Specimen Source: Tissue Specimen Site: Pleural cavity Specimen Performing Laboratory Tissue - Pleural cavity [facility] [place] [address] * Anaerobic culture (10/08/2016 2:17 PM) Component Value Ref Range Anaerobic culture isolate No anaerobic organisms isolated. Comment: Specimen Information Specimen Source: Tissue Specimen Site: Pleural cavity Specimen Performing Laboratory Tissue - Pleural cavity [facility] [place] [address] * Arterial blood gas, corrected (10/08/2016 11:08 AM) Only the most recent of 6 results within the time period is included. Component Value Ref Range pH, arterial 7.52 (H) 7.35 - 7.45 pCO2, arterial 37 35 - 45 mmHg pO2, arterial 273 (H) 80 - 90 mmHg Temperature, Celsius 36.0 Degrees C O2 saturation, arterial 100 95 - 100 % pH, arterial corrected 7.53 pCO2, arterial corrected 36 mmHg pO2, arterial corrected 269 mmHg Base excess, arterial 7 (H) -2 - 2 mEq/L Specimen Performing Laboratory Blood [facility] DEPARTMENT OF PATHOLOGY AND GENOMIC MEDICINE [address] [place] [address] * Hemoglobin A1c (10/07/2016 1:30 PM) Component Value Ref Range Hemoglobin A1C 4.7 4.0 - 5.6 % Comment: HbA1c cutoffs for diagnosing diabetes: 4.0% - 5.6%=normal 5.7% - 6.4%=increased risk for diabetes (prediabetes) >=6.5%=diabetes Goals for glycemic control (ADA 2016) < 7.0% Target for non adults with diabetes. More or less stringent targets may be appropriate for individual patients. <7.5% Target for Children and adolescents with type 1 diabetes. Specimen Performing Laboratory Blood [facility] DEPARTMENT OF PATHOLOGY AND GENOMIC MEDICINE [address] [place] [address] * Sodium level, urine, random (10/06/2016 10:20 PM) Component Value Ref Range Sodium, urine, random <20 mEq/L Specimen Performing Laboratory Urine [facility] DEPARTMENT OF PATHOLOGY AND [facility] [address] [place] [address] * Urinalysis screen and microscopy, with reflex to culture (10/06/2016 9:00 PM) Component Value Ref Range Specimen site Catheterized Color, UA Straw Appearance, UA Clear Specific gravity, UA 1.002 1.001 - 1.035 pH, UA 8.0 5.0 - 8.5 Protein, UA Negative Negative Glucose, UA Negative Negative Ketones, UA Trace (A) Negative Bilirubin, UA Negative Negative Blood, UA Negative Negative Nitrite, UA Negative Negative Urobilinogen, UA <2.0 <2.0 Leukocyte esterase, UA Negative Negative WBC, UA None seen 0 - 1 /HPF RBC, UA <1 0 - 1 /HPF Bacteria, UA Few None seen Yeast, UA None seen Yeast with pseudohyphae, None seen UA Specimen Performing Laboratory Urine [facility] DEPARTMENT OF PATHOLOGY AND GENOMIC MEDICINE [address] [place] [phone] * Urine culture (10/06/2016 9:00 PM) Component Value Ref Range Urine culture SEE COMMENTComment: Bacteriuria screen negative. Specimen Performing Laboratory Urine [facility] DEPARTMENT OF PATHOLOGY AND GENOMIC MEDICINE [address] [place] [address] * Osmolality, urine (10/06/2016 6:32 PM) Component Value Ref Range Osmolality, urine 347 50 - 1,400 mOsm/kg Specimen Performing Laboratory Urine [facility] DEPARTMENT OF PATHOLOGY AND GENOMIC MEDICINE [address] [place] [address] * Osmolality, serum (10/06/2016 6:32 PM) Component Value Ref Range Osmolality 264 (L) 275 - 295 mOsm/kg Specimen Performing Laboratory Blood [facility] DEPARTMENT OF PATHOLOGY AND [facility] [address] [place] [address] * Echocardiogram complete w contrast and 3D if needed (10/06/2016 4:30 PM) Specimen [facility]forming [facility] [address] [place] [address] Narrative Echocardiography Report [address] [place] [address] Wall motion diagram can be located in the PACS image link Pat.Name:NAY RUDOLPH Pat.ID:[id number] .Date: 10/06/2016 Refer.MD:LENARD SALGADO MD Exam Time: 3:52:00 PMStudy Type:Routine Echo Height:69inWeight:157lb BSA: 1.87 m2 DOBAge:[age]Y Sex: MALEBP: 100/50 HR:119 bpm Sonogrphr: Staci Beaulieu RDCS Pat. Stat.:Inpatient Room:[place] [address] Study Status:Final Echo Event ID:[id number] Order ID:[id number] Reason for Study:post redo mitral repair , respiratory failure, rule out pericardial effusion and evaluate valve function History / Clinical:Hypertension, Mitral prolapse, Hyperlipidemia Procedures:2D Echo, Colorflow Doppler, Portable, Stat Race:C FINDINGS: LV: LV size is normal. Concentric left ventricular remodeling. LVfunction is normal. Overall wall motion is normal. EstimatedEF is 65-69% RV: RV size is enlarged. RV function is moderately to severely depressed.RV wall motion is severely hypokinetic. LA: LA volume is difficult to assess. RA: RA volume is difficult to assess. AO: Aortic root diameter is normal. SARA: Moderate anterior and posterior pericardial effusion. Anteriorecho dense collection which may represent hematoma.Clinical correlation recommended.Extra echoes withinthe pericardial space suggesting presence of fibro-adhesivematerial. AV: Focal calcification of AV leaflets. Mild aortic regurgitation. MV: Surgical ring present. Artificial Chordae. Myxomatous degenerationof MV. Diastolic gradient related to MV repair andtachycardia. PV: No structural PV abnormalities noted. A trace of pulmonic regurgitation. TV: No structural TV abnormalities noted. Other:Insufficient TR jet to estimate PA systolic pressure. MEASUREMENTS: 2D Parasternal [place] LVIDd3.9 cmIndex 2.1 cm/m LA Ds3.7 cm LVIDs2.3 cmAo Rtd 3.3 cm Index1.8 cm/m LV%fs 41.5 % LV Gaef517.2 g(122-174) IVSd 1.1 cmLVM Index 77.1 g/m2 LVPWd1.1 cmRWT 0.6 MMODE TAPSE TAPS Dim 1 cm DOPPLER MV For Flow/Valve Assess MV pkVel 164.3 cm/sMV Mean G 6.9 mmHg MV pkPG 10.8 mmHgMV TVI 31.8 cm Signed 10/06/2016 06:43 PM Irwin Jiménez M.D. Procedure Note Interface, Radiology Results In - 10/06/2016 6:44 PM CDT Echocardiography Report [address] [address], [place] [address] Wall motion diagram can be located in the PACS image link Pat.Name: NAY RUDOLPH Xiomara.ID: [id number] .Date: 10/06/2016 Refer.MD: LENARD SALGADO MD Exam Time: 3:52:00 PM Study Type:Routine Echo Height: 69in Weight: 157lb BSA: 1.87 m2 Age: 11 1935,81Y Sex: MALE BP: 100/50 HR: 119 bpm Sonogrphr: Staci Beaulieu RDCS Pat. Stat.:Inpatient Room: [place] [address] Study Status:Final Echo Event ID:[id number] Order ID: [id number] Reason for Study:post redo mitral repair , respiratory failure, rule out pericardial effusion and evaluate valve function History / Clinical:Hypertension, Mitral prolapse, Hyperlipidemia Procedures:2D Echo, Colorflow Doppler, Portable, Stat Race: C FINDINGS: LV: LV size is normal. Concentric left ventricular remodeling. LV function is normal. Overall wall motion is normal. Estimated EF is 65-69% RV: RV size is enlarged. RV function is moderately to severely depressed. RV wall motion is severely hypokinetic. LA: LA volume is difficult to assess. RA: RA volume is difficult to assess. AO: Aortic root diameter is normal. SARA: Moderate anterior and posterior pericardial effusion. Anterior echo dense collection which may represent hematoma. Clinical correlation recommended. Extra echoes within the pericardial space suggesting presence of fibro-adhesive material. AV: Focal calcification of AV leaflets. Mild aortic regurgitation. MV: Surgical ring present. Artificial Chordae. Myxomatous degeneration of MV. Diastolic gradient related to MV repair and tachycardia. PV: No structural PV abnormalities noted. A trace of pulmonic regurgitation. TV: No structural TV abnormalities noted. Other: Insufficient TR jet to estimate PA systolic pressure. MEASUREMENTS: 2D Parasternal [place] LVIDd 3.9 cm Index 2.1 cm/m LA Ds 3.7 cm LVIDs 2.3 cm Ao Rtd 3.3 cm Index 1.8 cm/m LV%fs 41.5 % LV Mass 144.2 g (122-174) IVSd 1.1 cm LVM Index 77.1 g/m2 LVPWd 1.1 cm RWT 0.6 MMODE TAPSE TAPS Dim 1 cm DOPPLER MV For Flow/Valve Assess MV pkVel 164.3 cm/s MV Mean G 6.9 mmHg MV pkPG 10.8 mmHg MV TVI 31.8 cm Signed 10/06/2016 06:43 PM Irwin Jiménez M.D. * XR Picc Chest Portable (10/06/2016 3:32 PM) Specimen Performing Laboratory [facility] [address] [place] [address] Narrative Examination: XR PICC CHEST PORTABLE Clinical history: E87.1 Hypo-osmolality and hyponatremia, VESICANTS Comparison: 1112 Impression: 1. Resolution PICC line tip is in the SVC. ET and visualized NG tube are stable. 2. Pulmonary volumes have moderately improved. Vasculature is currently within normal limits. 3. Appearance of the chest is otherwise similar. [facility]-[id number] Procedure Note Interface, Radiology Results Incoming - 10/06/2016 3:54 PM CDT Examination: XR PICC CHEST PORTABLE Clinical history: E87.1 Hypo-osmolality and hyponatremia, VESICANTS Comparison: 1112 Impression: 1. Resolution PICC line tip is in the SVC. ET and visualized NG tube are stable. 2. Pulmonary volumes have moderately improved. Vasculature is currently within normal limits. 3. Appearance of the chest is otherwise similar. [facility]-[id number] * PICC INSERTION (10/06/2016 3:16 PM) Narrative Anjali Laboy 10/06/20163:16 PM PICC insertion Date/Time: 10/06/2016 3:04 PM Performed by: RALEIGH ZABALA Authorized by: LEANRD SALGADO Consent: Consent obtained:Emergent situation Consent given by:Patient Risks discussed: arterial puncture, incorrect placement, nerve damage, bleeding, infection, superficial thrombus and deep vein thrombus Alternatives discussed:Delayed treatment Chase protocol: Procedure explained and questions answered to patient or proxy's satisfaction: yes Relevant documents present and verified: yes Test results available and properly labeled: yes Imaging studies available: yes Site/side marked: yes Immediately prior to procedure, a time out was called: yes Patient identity confirmed:Arm band, provided demographic data and hospital-assigned identification number Pre-procedure details: Hand hygiene: Hand hygiene performed prior to insertion Sterile barrier technique: All elements of maximal sterile technique followed Skin preparation:2% chlorhexidine Skin preparation agent: Skin preparation agent completely dried prior to procedure Anesthesia (see MAR for exact dosages): Anesthesia method:Local infiltration Local anesthetic:Lidocaine 1% w/o epi Route of administration:Subcutaneous PICC Line Placement Details (Will create an LDA): Patient position:Flat Indication:Known skilled nursing IV therapy and vesicants Location:Right basilic Device Type:Non-valved Catheter size:5 Fr PICC Characteristics: Catheter Brand:Peg BandwidthC External Catheter Length (cm):0 Internal Catheter Length (cm):38 Total Catheter Length (cm):38 Catheter Lot Number:[id number] Catheter Expiration Date:07/08/2018 Procedure Details: Landmarks identified: yes Ultrasound guidance: yes Sterile ultrasound techniques: Sterile gel and sterile probe covers were used Number of attempts:1 Number of PICC kits used during procedure:1 Purpose of procedure:PICC Placement Successful PICC Placement: Yes Patency/Placement:Flushes without difficulty, flushed with 10 mL normal saline, positive blood return, x-ray placement verified and injection cap placed PICC placed utlizing ultrasound-guided Modified Seldinger Technique: Yes Dressing/Securement:Catheter securement device and antimicrobial dressing applied Blood Loss Amount:Less than 20 mL Post-Procedure Details: Post-procedure:Dressing applied Tip placement confirmed by chest x-ray: Yes Patient tolerance of procedure:Tolerated well, no immediate complications * INTUBATION (10/06/2016 12:18 PM) Silvia Vaca MD 10/06/2016 11:51 AM Intubation Date/Time: 10/06/2016 11:10 AM Performed by: LANETTE VACA Authorized by: LENARD SALGADO Consent: Consent obtained:Emergent situation and verbal Consent given by:Spouse Risks discussed:Aspiration, bleeding, , brain injury, dental trauma, laryngeal injury, pneumothorax and hypoxia Chase protocol: Procedure explained and questions answered to patient or proxy's satisfaction: yes Relevant documents present and verified: yes Test results available and properly labeled: yes Imaging studies available: yes Required blood products, implants, devices, and special equipment available: yes Site/side marked: no Immediately prior to procedure, a time out was called: yes Patient identity confirmed:Arm band Pre-procedure details: Patient status:Altered mental status Pretreatment medications:Midazolam Induction:Etomidate Paralytics:Succinylcholine Procedure details: Preoxygenation:Bag valve mask CPR in progress: no Intubation method:Oral Technique:Video laryngoscopy Grade view:1 Difficult airway?: No Tube size (mm):8.0 Tube type:Cuffed Number of attempts:1 Ventilation between attempts: no Cricoid pressure: no Tube visualized through cords: yes Placement assessment: ETT to lip:23cm Tube secured with:ETT thorne Breath sounds:Equal Placement verification: chest rise, CXR verification, direct visualization, equal breath sounds, ETCO2 detector and tube exhalation CXR findings:ETT in proper place Post-procedure details: Patient tolerance of procedure:Tolerated well, no immediate complications * Herpes simplex virus by PCR (10/06/2016 12:15 PM) Component Value Ref Range Herpes virus, PCR Not-Detected Not-Detected Herpes virus, PCR See link below for PDF Lab ReportComment: Specimen Performing Laboratory Bronchial washing [facility] DEPARTMENT OF PATHOLOGY AND GENOMIC MEDICINE [address] [place] [address] * Arterial blood gas, pulmonary func dept (10/06/2016 12:04 PM) Only the most recent of 3 results within the time period is included. Component Value Ref Range pH, arterial 7.568 (H) 7.350 - 7.450 units pCO2, arterial 42.0 35.0 - 45.0 mmHg pO2, arterial 364.0 (H) 80.0 - 90.0 mmHg O2 saturation, arterial 100.5 (H) 95.0 - 100.0 % Base excess, arterial 14.8 (H) -2.0 - 2.0 mEq/L Bicarbonate 38.3 (H) 21.0 - 28.0 mEq/L O2 content 10.1 VOL% FiO2, inspired O2% 100 % Carboxyhemoglobin 1.2 0.0 - 1.4 % Comment: Reference Ranges: Carboxyhemoglobin Non smoker: 0.0 - 2.0% Smoker: 2.1 - 5.0% Heavy smoker: 5.1 - 9% Methemoglobin 0.7 0.0 - 1.0 % Hemoglobin, blood gas 6.5 (LL) 14.0 - 18.0 g/dL Specimen Performing Laboratory Blood [facility] DEPARTMENT OF PATHOLOGY AND GENOMIC MEDICINE [address] [place] [address] * Respiratory culture (10/06/2016 12:00 PM) Component Value Ref Range Respiratory culture Normal oral juan manuel isolated. isolate Comment: Specimen Information Specimen Source: Bronchial Washing Specimen Site: RUL (right upper lobe) Specimen Performing Laboratory Bronchial washing - RUL [facility] DEPARTMENT OF PATHOLOGY AND GENOMIC MEDICINE (right upper lobe) [address] [place] [address] * Respiratory pathogen panel (10/06/2016 12:00 PM) Component Value Ref Range Respiratory pathogen Negative for all pathogens tested: panel Negative for Adenovirus Negative for Coronavirus HKU1 Negative for Coronavirus NL63 Negative for Coronavirus 229E Negative for Coronavirus OC43 Negative for Human Metapneumovirus Negative for Rhinovirus/Enterovirus Negative for Influenza A Negative for Influenza A/H1 Negative for Influenza A/H3 Negative for Influenza A/H1-2009 Negative for Influenza B Negative for Parainfluenza Virus 1 Negative for Parainfluenza Virus 2 Negative for Parainfluenza Virus 3 Negative for Parainfluenza Virus 4 Negative for Respiratory Syncytial Virus Negative for Bordetella pertussis Negative for Chlamydophila pneumoniae Negative for Mycoplasma pneumoniae This real-time PCR assay detects the presence of nucleic acids (RNA or DNA) for the respiratory pathogens listed. A result of "Not-detected" does not exclude the possibility of the presence of one or more pathogens at concentrations less than the detectable limits of the assay. Comment: Specimen Information Specimen Source: Bronchial Washing Specimen Site: RUL (right upper lobe) Specimen Performing Laboratory Bronchial washing - RUL [facility] DEPARTMENT OF PATHOLOGY AND GENOMIC MEDICINE (right upper lobe) [address] [place] [address] * CT Chest W Contrast (10/04/2016 11:17 AM) Specimen Performing Laboratory [address] [address] Narrative EXAMINATION: CT CHEST W CONTRAST CLINICAL HISTORY: Respiratory insufficiency. TECHNIQUE: Multiple axial images of the chest were obtained following intravenous administration of iodinated contrast. Sagittal and coronal computerized reformatted images were also obtained. DOSE REDUCTION: CT imaging was performed with iterative reconstruction technique and/or automated exposure control to reduce radiation dose. COMPARISON: Portable chest radiograph October 04, 2016 at 0353 hours IMPRESSION: Large complex and loculated right pleural effusion is concerning for hemothorax or empyema. Right middle and lower lobes are collapsed, and there is compressive right upper lobe subsegmental atelectasis. Right upper lobe ground-glass opacities are nonspecific but most likely related to hypoventilation, asymmetric edema, or infectious pneumonitis. 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 Multifocal subsegmental atelectasis and linear scarring in the lingula and left lower lobe. Lingular ground-glass opacities are again nonspecific but probably related to hypoventilation or infectious pneumonitis. Edema is considered less likely given the nondependent location. Patient is status-post midline sternotomy. Heart is normal in size. Left and right coronary artery calcifications. No pericardial effusion patient is status- post mitral annuloplasty. Epicardial pacing wire partially imaged. Aorta is nonaneurysmal and without dissection or significant atherosclerotic disease. Arch great vessels are unremarkable. Dilatation of the pulmonary artery measuring 3.8 cm is consistent with pulmonary hypertension. SVC is patent. No mediastinal mass or thoracic lymphadenopathy. No mediastinal hematoma. Mild pneumomediastinum related to recent surgery. Images of the upper abdomen show gallstones and a small right hepatic cyst. Deformity of a few contiguous right anterior ribs compatible with fracture. Sternotomy is normal in appearance and there is no fluid collection. [facility]-[id number] Procedure Note Hm Interface, Radiology Results Incoming - 10/04/2016 11:38 AM CDT EXAMINATION: CT CHEST W CONTRAST CLINICAL HISTORY: Respiratory insufficiency. TECHNIQUE: Multiple axial images of the chest were obtained following intravenous administration of iodinated contrast. Sagittal and coronal computerized reformatted images were also obtained. DOSE REDUCTION: CT imaging was performed with iterative reconstruction technique and/or automated exposure control to reduce radiation dose. COMPARISON: Portable chest radiograph October 04, 2016 at 0353 hours IMPRESSION: Large complex and loculated right pleural effusion is concerning for hemothorax or empyema. Right middle and lower lobes are collapsed, and there is compressive right upper lobe subsegmental atelectasis. Right upper lobe ground-glass opacities are nonspecific but most likely related to hypoventilation, asymmetric edema, or infectious pneumonitis. 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 Multifocal subsegmental atelectasis and linear scarring in the lingula and left lower lobe. Lingular ground-glass opacities are again nonspecific but probably related to hypoventilation or infectious pneumonitis. Edema is considered less likely given the nondependent location. Patient is status-post midline sternotomy. Heart is normal in size. Left and right coronary artery calcifications. No pericardial effusion patient is status- post mitral annuloplasty. Epicardial pacing wire partially imaged. Aorta is nonaneurysmal and without dissection or significant atherosclerotic disease. Arch great vessels are unremarkable. Dilatation of the pulmonary artery measuring 3.8 cm is consistent with pulmonary hypertension. SVC is patent. No mediastinal mass or thoracic lymphadenopathy. No mediastinal hematoma. Mild pneumomediastinum related to recent surgery. Images of the upper abdomen show gallstones and a small right hepatic cyst. Deformity of a few contiguous right anterior ribs compatible with fracture. Sternotomy is normal in appearance and there is no fluid collection. [facility]-[id number] * US Chest (10/02/2016 4:05 PM) Specimen Performing Laboratory [facility] [address] [place] [id number] Narrative US CHEST CLINICAL INDICATION:Pleural effusiondiagnosislocalization for thoracentesis COMPARISON:None. IMPRESSION: Ultrasound was performed for evaluation of pleural collections. A right very small pleural effusion is measured at 159 mL. A minimal left effusion is measured at 59 mL. Both collections are thought of low therapeutic yield for thoracentesis. Thank you for allowing us to participate in the care of your patient [facility]-[id number] Procedure Note Interface, Radiology Results Incoming - 10/02/2016 5:07 PM CDT US CHEST CLINICAL INDICATION: Pleural effusion diagnosis localization for thoracentesis COMPARISON: None. IMPRESSION: Ultrasound was performed for evaluation of pleural collections. A right very small pleural effusion is measured at 159 mL. A minimal left effusion is measured at 59 mL. Both collections are thought of low therapeutic yield for thoracentesis. Thank you for allowing us to participate in the care of your patient [facility]-[id number] * Central line (10/01/2016 11:34 AM) Narrative Koby Alatorre MD 10/01/2016 11:34 AM Central line Performed by: BLADE LOMAX Authorized by: BLADE LOMAX Patient Location:OR Start Time:10/01/2016 7:43 AM End Time:10/01/2016 7:43 AM Staff: Anesthesiologist:KOBY ALATORRE Other Staff:BLADE LOMAX Performed by:Anesthesiologist Preprocedure:patient identified, IV checked, site and side verified, risks and benefits discussed, procedure verified, surgical consent complete, patient position confirmed, monitors and equipment checked and pre-op evaluation complete MSBT: antiseptic used during central venous catheter insertion, all elements of maximal sterile barrier technique followed, hand hygiene performed prior to central venous catheter insertion, cap/gown used by other personnel during central venous catheter insertion, solutions labeled and all ports not used during insertion clamped Indications: Indications:Central pressure monitoring and vascular access Anesthesia: Anesthesia:General Procedure details: Patient position:Trendelenburg Catheter Type:Triple lumen Catheter Size:9 Fr Catheter Site: internal jugular vein Catheter site laterality:Right Pre-procedure: Landmarks identified Ultrasound guidance used: Yes Ultrasound image saved: Yes Number of attempts:1 Successful placement: Yes Guidewire removal: Guidewire removal is confirmed Guidewire removal witnessed by:BLADE LOMAX Post-procedure: Post-procedure: line sutured and ports flushed with saline Post-procedure:Blood cleaned with CHG Assessment:Blood return through all ports Patient tolerance:Patient tolerated the procedure well with no immediate complications Procedure Note Koby Alatorre MD - 10/01/2016 7:43 AM CDT Central line Performed by: BLADE LOMAX Authorized by: BLADE LOMAX Patient Location: OR Start Time: 10/01/2016 7:43 AM End Time: 10/01/2016 7:43 AM Staff: Anesthesiologist: KOBY ALATORRE Other Staff: BLADE LOMAX Performed by: Anesthesiologist Preprocedure:patient identified, IV checked, site and side verified, risks and benefits discussed, procedure verified, surgical consent complete, patient position confirmed, monitors and equipment checked and pre-op evaluation complete MSBT: antiseptic used during central venous catheter insertion, all elements of maximal sterile barrier technique followed, hand hygiene performed prior to central venous catheter insertion, cap/gown used by other personnel during central venous catheter insertion, solutions labeled and all ports not used during insertion clamped Indications: Indications: Central pressure monitoring and vascular access Anesthesia: Anesthesia: General Procedure details: Patient position: Trendelenburg Catheter Type: Triple lumen Catheter Size: 9 Fr Catheter Site: internal jugular vein Catheter site laterality: Right Pre-procedure: Landmarks identified Ultrasound guidance used: Yes Ultrasound image saved: Yes Number of attempts: 1 Successful placement: Yes Guidewire removal: Guidewire removal is confirmed Guidewire removal witnessed by: BLADE LOMAX Post-procedure: Post-procedure: line sutured and ports flushed with saline Post-procedure: Blood cleaned with CHG Assessment: Blood return through all ports Patient tolerance: Patient tolerated the procedure well with no immediate complications * Fibrinogen (10/01/2016 11:01 AM) Component Value Ref Range Fibrinogen 145 (L) 200 - 450 mg/dL Specimen Performing Laboratory Blood [facility] DEPARTMENT OF PATHOLOGY AND GENOMIC MEDICINE [address] [place] [address] * Platelet count (10/01/2016 11:01 AM) Component Value Ref Range Platelet count 42 (L) 150 - 400 k/uL Specimen Performing Laboratory [facility] DEPARTMENT OF PATHOLOGY AND [address] [address] * XR Chest 2 Vw (09/27/2016 2:45 PM) Specimen Performing Laboratory [facility] [address] [place] [address] Narrative EXAMINATION:XR CHEST 2 VW CLINICAL HISTORY:pre-op clearance COMPARISON: September 20, 2016 IMPRESSION: Atelectasis in lung bases Nonspecific elevation of the right hemidiaphragm, unchanged from prior Blunting of the costophrenic angles could be secondary to scarring or small bilateral pleural effusions [facility]-[id number] Procedure Note Interface, Radiology Results Incoming - 09/27/2016 2:53 PM CDT EXAMINATION: XR CHEST 2 VW CLINICAL HISTORY: pre-op clearance COMPARISON: September 20, 2016 IMPRESSION: Atelectasis in lung bases Nonspecific elevation of the right hemidiaphragm, unchanged from prior Blunting of the costophrenic angles could be secondary to scarring or small bilateral pleural effusions [facility]-[id number] * Pv carotid duplex (09/27/2016 2:30 PM) Specimen Performing Laboratory [facility] [address] [place] [address] Narrative Vascular Ultrasound Laboratory Carotid Artery Duplex Report [id number] [facility] [address], [place] [address] For vice president quality assurance purposes, the categorization of the degree of the stenosis of this exam is based on criteria described in the IAC carotid stenosis grading white paper( www.intersocietal.org/Vascular) and Fe Johnson., Karma Bear., et al. Carotid artery stenosis: mejia-scale and Doppler US diagnosis--Society of Radiologists in Ultrasound Consensus Conference. Radiology. 2003 Nov; 229(2):340-6. Pat.Name:NAY RUDOLPH Pat.ID:[id number] .Date: 09/27/2016 Refer.MD:JOHN TIM MD Exam Time: 1:47:00 PMStudy Type:Carotid DOBAge:1935,81YSex: MALE Sonogrphr: Monet Vi, RVTPat. Stat.:Inpatient Room:[address] TapeVol: , CPT - 4: 58834 Echo Event ID:[id number] Order ID:[id number] Reason for Study:Pre-operative for mitral valve repair. History of acute mitral insufficiency, stroke, DC, bleeding, lung disease, kidney disease. Race:C SUMMARY: PHYSICAL ASSESSMENT BloodPulsesCarotid Pressure Carotid TemporalBruit Right 105/60 ++0 Left IV ++0 CAROTID ARTERY SCAN RIGHT: There is hard and calcified plaque seen in the common carotid artery, bulb area extending into proximal internal and external carotid artery. Colorflow and Doppler signals are normal. There is antegrade flow seen in the vertebral artery. LEFT: There is hard and calcified plaque seen in the common carotid artery, bulb area extending into proximal internal and external carotid artery. There is elevated velocity seen in the proximal external carotid artery. Colorflow and Doppler signals are disturbed. There is antegrade flow seen in the vertebral artery. PRELIMINARY FINDINGS 1. < 50% stenosis seen in the internal carotid artery, bilaterally. 2. >50% stenosis seen in the left external carotid artery. 3. Antegrade flow seen in the vertebral artery, bilaterally. PHYSICIAN INTERPRETATION 1.Bilateral carotid artery examination demonstrates plaque in the bulbs and internal carotid arteries without hemodynamically significant stenosis. (<50%) Carotid Findings:RightLeft Verteb.Flw Antegrade Antegrade Subclavian Triphasic Triphasic MEASUREMENTS: DOPPLER Left CCA Dist CCA Dist PSV 106 cm/sCCA Dist EDV24.4 cm/s Left CCA Mid CCA Mid [id number] cm/sCCA Mid EDV 19.6 cm/ s Left CCA Prox CCA Prox PSV 108 cm/sCCA Prox EDV19.6 cm/s Left ICA Dist ICA Dist PSV 113 cm/Mike Dist EDV42.4 cm/s Left ICA Mid ICA Mid PSV 95 cm/Mike Mid EDV 35.2 cm/ s Left ICA Prox ICA Prox PSV89.1 cm/Mike Prox EDV31.1 cm/s Left ECA Prox ECA Prox PSV 155 cm/sECA Prox EDV27.5 cm/s Left Vertebral Vertebral PSV 52.6 cm/sVertebral EDV 15.7 cm/s Right CCA Dist CCA Dist PSV91.1 cm/sCCA Dist EDV17.3 cm/s Right CCA Mid CCA Mid PSV 85.6 cm/sCCA Mid EDV 14.1 cm/s CCA Prox CCA Prox PSV94.3 cm/s Right ICA Dist ICA Dist PSV93.5 cm/Mike Dist EDV29.9 cm/s Right ICA Mid ICA Mid PSV 82.1 cm/Mike Mid EDV 23.5 cm/s Right ICA Prox ICA Prox PSV82.7 cm/Mike Prox EDV24 cm/ s Right ECA Prox ECA Prox PSV 140 cm/sECA Prox EDV23.6 cm/s Right Vertebral Vertebral PSV 52.6 cm/sVertebral EDV 13.8 cm/s Right ICA/CCA Ratio ICA/CCA PSV0.966 Left ICA/CCA Ratio ICA/CCA PSV0.849 Right CCA Prox CCA Prox EDV14.9 cm/s Signed 09/27/2016 04:06 PM John Whaley MD Procedure Note Interface, Radiology Results In - 09/27/2016 4:06 PM CDT Vascular Ultrasound Laboratory Carotid Artery Duplex Report [id number] [place] [address] For vice president quality assurance purposes, the categorization of the degree of the stenosis of this exam is based on criteria described in the IAC carotid stenosis grading white paper( www.intersocietal.org/Vascular) and Fe Johnson., Karma Bear., et al. Carotid artery stenosis: mejia-scale and Doppler US diagnosis--Society of Radiologists in Ultrasound Consensus Conference. Radiology. 2003 Nov; 229(2):340-6. Pat.Name: NAY RUDOLPH Pat.ID: [id number] St.Date: 09/27/2016 Refer.MD: JOHN TIM MD Exam Time: 1:47:00 PM Study Type:Carotid Age: 13 1935,81Y Sex: MALE Sonogrphr: Monet Vi, RVT Pat. Stat.:Inpatient Room: [address] Vol: , CPT - 4: 04244 Echo Event ID:[id number] Order ID: [id number] Reason for Study:Pre-operative for mitral valve repair. History of acute mitral insufficiency, stroke, DC, bleeding, lung disease, kidney disease. Race: C SUMMARY: PHYSICAL ASSESSMENT Blood Pulses Carotid Pressure Carotid Temporal Bruit Right 105/60 + + 0 Left IV + + 0 CAROTID ARTERY SCAN RIGHT: There is hard and calcified plaque seen in the common carotid artery, bulb area extending into proximal internal and external carotid artery. Colorflow and Doppler signals are normal. There is antegrade flow seen in the vertebral artery. LEFT: There is hard and calcified plaque seen in the common carotid artery, bulb area extending into proximal internal and external carotid artery. There is elevated velocity seen in the proximal external carotid artery. Colorflow and Doppler signals are disturbed. There is antegrade flow seen in the vertebral artery. PRELIMINARY FINDINGS 1. < 50% stenosis seen in the internal carotid artery, bilaterally. 2. >50% stenosis seen in the left external carotid artery. 3. Antegrade flow seen in the vertebral artery, bilaterally. PHYSICIAN INTERPRETATION 1. Bilateral carotid artery examination demonstrates plaque in the bulbs and internal carotid arteries without hemodynamically significant stenosis. (<50%) Carotid Findings: Right Left Verteb.Flw Antegrade Antegrade Subclavian Triphasic Triphasic MEASUREMENTS: DOPPLER Left CCA Dist CCA Dist PSV 106 cm/s CCA Dist EDV 24.4 cm/s Left CCA Mid CCA Mid PSV 105 cm/s CCA Mid EDV 19.6 cm/s Left CCA Prox CCA Prox PSV 108 cm/s CCA Prox EDV 19.6 cm/s Left ICA Dist ICA Dist PSV 113 cm/s ICA Dist EDV 42.4 cm/s Left ICA Mid ICA Mid PSV 95 cm/s ICA Mid EDV 35.2 cm/s Left ICA Prox ICA Prox PSV 89.1 cm/s ICA Prox EDV 31.1 cm/s Left ECA Prox ECA Prox PSV 155 cm/s ECA Prox EDV 27.5 cm/s Left Vertebral Vertebral PSV 52.6 cm/s Vertebral EDV 15.7 cm/s Right CCA Dist CCA Dist PSV 91.1 cm/s CCA Dist EDV 17.3 cm/s Right CCA Mid CCA Mid PSV 85.6 cm/s CCA Mid EDV 14.1 cm/s CCA Prox CCA Prox PSV 94.3 cm/s Right ICA Dist ICA Dist PSV 93.5 cm/s ICA Dist EDV 29.9 cm/s Right ICA Mid ICA Mid PSV 82.1 cm/s ICA Mid EDV 23.5 cm/s Right ICA Prox ICA Prox PSV 82.7 cm/s ICA Prox EDV 24 cm/s Right ECA Prox ECA Prox PSV 140 cm/s ECA Prox EDV 23.6 cm/s Right Vertebral Vertebral PSV 52.6 cm/s Vertebral EDV 13.8 cm/s Right ICA/CCA Ratio ICA/CCA PSV 0.966 Left ICA/CCA Ratio ICA/CCA PSV 0.849 Right CCA Prox CCA Prox EDV 14.9 cm/s Signed 09/27/2016 04:06 PM John Whaley MD * Cv label remover procedure (09/26/2016 4:39 PM) Component Value Ref Range Cath EF Estimated 53 % Specimen Performing Laboratory [facility] [address] [place] [address] Addenda Addendum by John Tim MD on 09/27/2016 8:51 AM Right heart filling pressure is mildly elevated. Pulmonary hypertension is mild. Wedge pressure is normal. Cardiac output is normal. Low normal LVEF Mild CAD Severe Mitral Regurgitation Narrative Right heart filling pressure is mildly elevated. Pulmonary hypertension is mild. Wedge pressure is normal. Cardiac output is normal. Low normal LVEF Mild CAD * Troponin (09/20/2016 3:35 PM) Component Value Ref Range Troponin <0.30 0.00 - 0.30 ng/mL Comment: 0.30 - 1.49 ng/ml May indicate increased risk of acute coronary syndrome. >=1.5 ng/ml Consistent with acute myocardial infarction. The diagnostic value of a single normal or non-diagnostic result is questionable. Serial samples at 2-6 hour intervals are required to rule out acute myocardial injury. Specimen Performing Laboratory Plasma specimen [facility] DEPARTMENT OF PATHOLOGY AND GENOMIC MEDICINE [address] [place] [address] * B natriuretic peptide (09/20/2016 3:35 PM) Component Value Ref Range BNP 43 0 - 100 pg/mL Specimen Performing Laboratory Blood [facility] OF PATHOLOGY AND GENOMIC MEDICINE [address] [place] [address] Narrative Requested a recollect for k,ast; Specimen was hemolyzed; Spoke to ashu contreras/ludy at09/20/201616:52 * Creatine kinase, total (CPK) (09/20/2016 3:35 PM) Component Value Ref Range Creatine kinase 128 39 - 308 U/L Specimen Performing Laboratory Plasma specimen [facility] DEPARTMENT OF PATHOLOGY AND GENOMIC MEDICINE [address] [place] [address] * Echocardiogram transesophageal (08/29/2016 10:02 AM) Specimen Performing Laboratory [facility] [address] [place] [address] Narrative Transesophageal Echo Report [address], [place] [address] Pat.Name:NAY RUDOLPH Pat.ID:[id number] St.Date: 08/29/2016 Refer.MD:FRANCE GUTIERREZ MD Exam Time: 8:29:00 AMStudy Type:SHAYY Height:69inWeight:154lb BSA: 1.85 m2 DOBAge:1934,81Y Sex: MALEBP: 152/73 HR:93 bpm Sonogrphr: Fariba Louis MD [facility]. Stat.:OutpatientStudy Status:Final Echo Event ID:[id number] Order ID:[id number] Reason for Study:MITRAL VALVE INSUFFICIENCY History / Clinical:Hypertension, Mitral prolapse Procedures:Transesophageal Echo with Colorflow Doppler Race:C SUMMARY: The mitral valve is S/P annuloplasty ring. There is flail P2 mitral valve leaflet and myxomatous degeneration of the MV. Moderate to severe eccentric mitral regurgitation.Estimated regurgitant fraction is 49%.Estimated regurgitant volume is 46 ml. LV function is normal. Estimated EF is 60-64%. Mild tricuspid regurgitation. FINDINGS: SHAYY:The attending farm implement mechanic performed the SHAYY procedure and waspresent for the entire duration. The patient was counseledand an informed consent was obtained. Topical and intravenousanesthesia was administered. The esophagus was intubatedwithout difficulty. The probe was passed to the gastricfundus and all standard echocardiographic views wereobtained. The patient tolerated the procedure well. LV: LV size is normal. LV function is normal. Overall wall motionis normal. Estimated EF is 60-64%. RV: RV size is normal. RV function is normal. LA: LA volume is enlarged. No thrombus or mass is visualized in theLA or LA appendage. RA: RA size is normal. AO: Aortic root diameter is normal. SARA: No pericardial effusion. AV: No structural AV abnormalities noted. A trace of aortic regurgitation. MV: Flail P2 mitral valve leaflet Moderate thickening of mitral leaflets.Mild calcification of mitral leaflets. Surgical ringpresent. Artificial Chordae. Myxomatous degeneration ofMV. The degree of MV prolapse is severe. MV prolapse involvesthe posterior leaflet. Moderate to severe mitral regurgitation.Eccentric mitral regurgitant jet directed anteriorlyand medially. Estimated regurgitant fraction is 49%. Estimated regurgitant volume is 46 ml. PV: No structural PV abnormalities noted. TV: No structural TV abnormalities noted. Mild tricuspid regurgitation SHAYY: Anesthesia: Moderate SedationASA Class: 3 Physician: France Gutierrez MD Insurance Claims Analyst: Fariba Louis MD Pre TEEBP HR Post SHAYY BP HR 152/73 93 115/60 84 Meds:Viscous xylocaine, Cetacaine spray to oropharynx, Versed 2 mg IV, Fentanyl 50 mcg IV Complications: None Condition: Stable MEASUREMENTS: 2D Aorta Ao Rtd 3.1 cm (1.7-3.4) Parasternal [place] LVOT 2.1 cm DOPPLER LVOT Stroke Vol LVOT 2.1 cmLVOT SV 47.1 ml LVOT TVI13.6 cmLVOT CO 3.7 l/min LVOT Tm286 msecHR 78 bpm MV Stroke Vol MV cameron 2.4 cmMV SV 93 ml MV TVI20.5 cmMV CO 7.7 l/min MV Tm362 msec Signed 08/29/2016 07:06 PM France Gutierrez MD Procedure Note Interface, Radiology Results In - 08/29/2016 7:07 PM CDT Transesophageal Echo Report [address], [place], [place] [address] Pat.Name: NAY RUDOLPH Pat.ID: [id number] .Date: 08/29/2016 Refer.MD: FRANCE GUTIERREZ MD Exam Time: 8:29:00 AM Study Type:SHAYY Height: 69in Weight: 154lb BSA: 1.85 m2 Age: 11 1935,81Y Sex: MALE BP: 152/73 HR: 93 bpm Sonogrphr: Fariba Louis MD Pat. Stat.:Outpatient Study Status:Final Echo Event ID:[id number] Order ID: [id number] Reason for Study:MITRAL VALVE INSUFFICIENCY History / Clinical:Hypertension, Mitral prolapse Procedures:Transesophageal Echo with Colorflow Doppler Race: C SUMMARY: The mitral valve is S/P annuloplasty ring. There is flail P2 mitral valve leaflet and myxomatous degeneration of the MV. Moderate to severe eccentric mitral regurgitation. Estimated regurgitant fraction is 49%. Estimated regurgitant volume is 46 ml. LV function is normal. Estimated EF is 60-64%. Mild tricuspid regurgitation. FINDINGS: SHAYY: The attending farm implement mechanic performed the SHAYY procedure and was present for the entire duration. The patient was counseled and an informed consent was obtained. Topical and intravenous anesthesia was administered. The esophagus was intubated without difficulty. The probe was passed to the gastric fundus and all standard echocardiographic views were obtained. The patient tolerated the procedure well. LV: LV size is normal. LV function is normal. Overall wall motion is normal. Estimated EF is 60-64%. RV: RV size is normal. RV function is normal. LA: LA volume is enlarged. No thrombus or mass is visualized in the LA or LA appendage. RA: RA size is normal. AO: Aortic root diameter is normal. SARA: No pericardial effusion. AV: No structural AV abnormalities noted. A trace of aortic regurgitation. MV: Flail P2 mitral valve leaflet Moderate thickening of mitral leaflets. Mild calcification of mitral leaflets. Surgical ring present. Artificial Chordae. Myxomatous degeneration of MV. The degree of MV prolapse is severe. MV prolapse involves the posterior leaflet. Moderate to severe mitral regurgitation. Eccentric mitral regurgitant jet directed anteriorly and medially. Estimated regurgitant fraction is 49 %. Estimated regurgitant volume is 46 ml. PV: No structural PV abnormalities noted. TV: No structural TV abnormalities noted. Mild tricuspid regurgitation SHAYY: Anesthesia: Moderate Sedation ASA Class: 3 Physician: France Gutierrez MD Insurance Claims Analyst: Fariba Louis MD Pre SHAYY BP HR Post SHAYY BP HR 152/73 93 115/60 84 Meds: Viscous xylocaine, Cetacaine spray to oropharynx, Versed 2 mg IV, Fentanyl 50 mcg IV Complications: None Condition: Stable MEASUREMENTS: 2D Aorta Ao Rtd 3.1 cm (1.7-3.4) Parasternal [place] LVOT 2.1 cm DOPPLER LVOT Stroke Vol LVOT 2.1 cm LVOT SV 47.1 ml LVOT TVI 13.6 cm LVOT CO 3.7 l/min LVOT Tm 286 msec HR 78 bpm MV Stroke Vol MV cameron 2.4 cm MV SV 93 ml MV TVI 20.5 cm MV CO 7.7 l/min MV Tm 362 msec Signed 08/29/2016 07:06 PM France Gutierrez MD after 07/09/2016 Insurance Payer Benefit Subscriber ID Type Phone Address Plan / Group MEDICARE MEDICARE xxxxxxxxxx Medicare [place], [place] PART A AND B AARP AARP xxxxxxxxxxx Commercial SUPPLEMENT Home:
--- NOTE | 2017-07-10 14:25 | Operative Report ---
DATE OF PROCEDURE: July 10, 2017 REFERRING PHYSICIAN: Dr. Cherelle Hidalgo. PROCEDURE PERFORMED: Esophagogastroduodenoscopy with percutaneous endoscopic gastrotomy tube removal. INDICATIONS FOR PROCEDURE: Patient is status post PEG tube insertion, now swallowing well. He is in for EGD and PEG tube removal. MEDICATION: Patient was done under MAC. Please see anesthesiologist's note. PROCEDURE: With the patient in the supine position, the flexible fiberoptic Olympus gastroscope was introduced into the esophagus under direct visualization without any difficulty. The esophagus appeared to be within normal limits. The scope was then advanced with ease into the stomach, traversing a small hiatal hernia. The mucosa overlying the antrum and the body revealed some patchy areas of erythema. The bumper of the G-tube was noted to be in good position. Pylorus was then intubated with ease, and the scope was advanced all the way to the 2nd portion of the duodenum. The scope was then withdrawn slowly. Mucosa overlying the proximal 2nd portion and the duodenal bulb appeared to be within normal limits. The scope was then withdrawn back into the stomach and retroflexed, and the mucosa overlying the fundus and the cardia appeared to be within normal limits. The scope was then straightened out, and the PEG tube was then removed per the old pull traction method. The scope was subsequently withdrawn. Patient tolerated the procedure well. IMPRESSION: 1. Normal esophagus. 2. Small hiatal hernia. 3. Gastritis, mild. 4. Gastrotomy tube removed per the pull traction method. Patient tolerated the procedure well. PLAN: As ordered. Job#: [id number] EV cc:CHERELLE HIDLAGO MD
== END | disposition home or self-care (01) ==
LOC: OR 09:26
PROVIDERS: ATTEND Internal Medicine Gastroenterology
DX: Z43.1 Encounter for attention to gastrostomy (principal); K44.9 Diaphragmatic hernia without obstruction or gangrene; K29.70 Gastritis, unspecified, without bleeding; I10 Essential (primary) hypertension; Z95.2 Presence of prosthetic heart valve; K21.9 Gastro-esophageal reflux disease without esophagitis
CPT/HCPCS: 36415; 85025; 93005

== ENCOUNTER → 2018-10-14 | Outpatient (CLI) | payer MEDICARE ==
[~2018-10-14] MED LIST changes: -BACITRACIN ZINC 15 GM OINT ONE; -FENTANYL CITRATE/PF 100MCG/2 ML INJ ONE; -PROPOFOL IV EMULSION 10 MG/ML 50 ML VIAL ONE
--- NOTE | 2018-10-14 15:49 | Diagnostic Imaging Report ---
EXAMINATION: CHEST 2 VIEWS INDICATION: Cough COMPARISON: Chest CT of 06/26/2017 FINDINGS: LINES/TUBES:Sternotomy wires intact. LUNGS:The lungs are moderately inflated. Patchy opacity at the right lung base silhouettes the right hemidiaphragm. Subsegmental atelectasis at the left lung base. PLEURA:Moderate Right pleural effusion. Trace left pleural effusion. No pneumothorax. MEDIASTINUM:The cardiomediastinal silhouette appears normal in size and shape. BONES/SOFT TISSUES:No acute osseous injury. Old healed right lateral rib fractures. ABDOMEN:No free air under the diaphragm. IMPRESSION: Moderate pleural effusion. Trace left pleural effusion. Patchy opacity at the right lung base more likely represents atelectasis than superimposed aspiration or pneumonia. Mild subsegmental atelectasis at the left lung base. Signed by: Beth Crespo MD on 10/14/2018 3:46 PM
== END ==
LOC: RAD 14:19
DX: R05 Cough (principal)
CPT/HCPCS: 71046

== ENCOUNTER 2020-02-11 14:04 | Emergency (ER) | payer MEDICARE ==
[~2020-02-11] VITALS: Ht 172.7 cm; Wt 65.8 kg
--- NOTE | 2020-02-11 14:07 | Emergency Department Note ---
History of Present Illnes History of Present Illness History of Present Illness This is a 85 year old male with epigastric pain NR. PMH of mitral valve replacement . 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 Trichologist Required: No Onset (how long ago): hour(s) Location: epigastric Radiation: Reports non-radiation Severity: moderate Onset quality: gradual Duration (how long): hour(s) Timing of current episode: constant Progression: partially resolved Chronicity: new Context: Denies recent illness, Denies recent surgery, Denies recent immobili zation, Denies recent travel, Denies trauma/injury, Denies new medications, Denies hx of DVT/PE, Denies non-compliance w/ medications, Denies other Relieving factors: none Exacerbating factors: none Associated symptoms: Reports chest pain Past Medical/Family History Physician Review I have reviewed the patient's past medical and family history. Any updates have been documented here. Past Medical History Recent Fever: No Clinical Suspicion of Infectio: No New/Unexplained Change in Ment: No Other Medical History: CAD Other Surgery: mitral valve replacement Social History Smoking Cessation: Never Smoker Alcohol Use: None Any Illegal Drug Use: No Review of Systems Review of Systems Constitutional: Reports no symptoms EENTM: Reports no symptoms Cardiovascular: Reports chest pain Respiratory: Reports no symptoms Gastrointestinal: Reports no symptoms Genitourinary: Reports no symptoms Musculoskeletal: Reports no symptoms Integumentary: Reports no symptoms Neurological: Reports no symptoms Psychological: Reports no symptoms Endocrine: Reports no symptoms Hematological/Lymphatic: Reports no symptoms Physical Exam Related Data Allergies: Coded Allergies: cefdinir (Verified Allergy, Unknown, 07/10/17) levofloxacin (Verified Allergy, Unknown, 07/10/17) nitrofurantoin (Verified Allergy, Unknown, 07/10/17) paroxetine (Verified Allergy, Unknown, 07/10/17) Triage Vital Signs Vital Signs Date Time Temp Pulse Resp B/P (MAP) Pulse Ox O2 Delivery O2 Flow Rate FiO2 02/11/20 14:08 98.9 101 21 121/67 98 Room Air 02/11/20 15:36 2.0 Vital signs reviewed: Yes Physical Exam CONSTITUTIONAL Constitutional: Present well-developed, Present well-nourished HENT HENT: Present normocephalic, Present atraumatic, Present oropharynx clear/moist, Present nose normal HENT L/R: Present left ext ear normal, Present right ext ear normal EYES Eyes: Reports PERRL, Reports conjunctivae normal NECK Neck: Present ROM normal PULMONARY Pulmonary: Present effort normal, Present breath sounds normal CARDIOVASCULAR Cardiovascular: Present regular rhythm, Present heart sounds normal, Present capillary refill normal, Present normal rate GASTROINTESTINAL Abdominal: Present soft, Present nontender, Present bowel sounds normal GENITOURINARY Genitourinary: Present exam deferred SKIN Skin: Present warm, Present dry MUSCULOSKELETAL Musculoskeletal: Present ROM normal NEUROLOGICAL Neurological: Present alert, Present oriented x 3, Present no gross motor or sensory deficits PSYCHOLOGICAL Psychological: Present mood/affect normal, Present judgement normal Results Laboratory Lab results reviewed: Yes Laboratory comments Laboratory Tests Test 02/11/20 14:44 02/11/20 14:22 White Blood Count 6.08 x10e3/uL (4.8-10.8) Red Blood Count 4.71 x10e6/uL (4.3-5.7) Hemoglobin 14.4 g/dL (14.0-18.0) Hematocrit 45.6 % (38.2-49.6) Mean Corpuscular Volume 96.8 fL (81-99) Mean Corpuscular Hemoglobin 30.6 pg (28-32) Mean Corpuscular Hemoglobin Concent 31.6 g/dL (31-35) Red Cell Distribution Width 11.9 % (11.7-14.4) Platelet Count 180 x10e3/uL (140-360) Neutrophils (%) (Auto) 87.3 % (38.7-80.0) Lymphocytes (%) (Auto) 6.1 % (18.0-39.1) Monocytes (%) (Auto) 5.9 % (4.4-11.3) Eosinophils (%) (Auto) 0.2 % (0.0-6.0) Basophils (%) (Auto) 0.3 % (0.0-1.0) Neutrophils # (Auto) 5.3 (2.1-6.9) Lymphocytes # (Auto) 0.4 (1.0-3.2) Monocytes # (Auto) 0.4 (0.2-0.8) Eosinophils # (Auto) 0.0 (0.0-0.4) Basophils # (Auto) 0.0 (0.0-0.1) Absolute Immature Granulocyte (auto 0.01 x10e3/uL (0-0.1) D-Dimer Quantitative (PE/DVT) 0.27 ug/mLFEU (0.00-0.45) Sodium Level 132 mmol/L (136-145) Potassium Level 5.2 mmol/L (3.5-5.1) Chloride Level 85 mmol/L (98-107) Carbon Dioxide Level 39 mmol/L (22-29) Anion Gap 13.2 mmol/L (8-16) Blood Urea Nitrogen 7 mg/dL (7-26) Creatinine 0.69 mg/dL (0.72-1.25) Estimat Glomerular Filtration Rate > 60 ML/MIN (60-) BUN/Creatinine Ratio 10 (6-25) Glucose Level 111 mg/dL (74-118) Calcium Level 9.2 mg/dL (8.4-10.2) Total Bilirubin 0.5 mg/dL (0.2-1.2) Aspartate Amino Transf (AST/SGOT) 21 IU/L (5-34) Alanine Aminotransferase (ALT/SGPT) 15 IU/L (0-55) Alkaline Phosphatase 51 IU/L (40-150) Creatine Kinase 66 IU/L (30-200) Creatine Kinase MB 2.40 ng/mL (0-5.0) Troponin I < 0.001 ng/mL (0-0.300) Total Protein 7.7 g/dL (6.5-8.1) Albumin 4.2 g/dL (3.5-5.0) Globulin 3.5 g/dL (2.3-3.5) Albumin/Globulin Ratio 1.2 (0.8-2.0) Imaging Imaging results reviewed: Yes Impressions [place] [address] Patient Name: NAY ADAMES MR #: [id number] : 1935 Age/Sex: 85/M Req #: [id number] Adm Physician: Ordered by: AYSHA LARSEN DO Report #: [id number] Location: ER Room/Bed: Procedure: [id number] DX/CHEST SINGLE (PORTABLE) Exam Date: 02/11/20 Exam Time: 1435 REPORT STATUS: Signed Chest, 1 view, 02/11/2020. History: Chest pain. Comparison: 10/14/2018. Findings: The cardiomediastinal silhouette and pulmonary vasculature are within normal limits for a portable exam. Bibasilar opacities and blunting of the costophrenic sulci, right greater than left, are unchanged. Median sternotomy wires are intact. There are no acute osseous or soft tissue abnormalities. Impression: Bibasilar opacities with pleural effusions, without significant change. Signed by: Aysha Sy on 02/11/2020 3:22 PM Dictated By: AYSHA SY MD 1522 Transcribed By: TASHI on 02/11/20 1522 COPY TO: AYSHA LARSEN DO~ Procedures 12 Lead ECG Interpretation ECG Interpretation #1: ECG: ECG 1 Trichologist: Interpreted by ED physician Date: Feb 11, 2020 Time: 14:18 Prior ECG tracings: reviewed Rhythm: sinus rhythm Rate: normal BPM: 100 QRS axis: normal Conduction: complete RBBB ST segments normal: Yes T waves normal: Yes Clinical Impression: non-specific ECG ECG Interpretation #2: ECG: ECG 2 Trichologist: Interpreted by ED physician Date: Feb 11, 2020 Time: 17:05 Prior ECG tracings: reviewed Rhythm: sinus rhythm Rate: normal BPM: 89 QRS axis: normal Conduction: right bundle branch block ST segments normal: Yes T waves normal: Yes Clinical Impression: abnormal ECG Assessment & Plan Medical Decision Making MDM Diff Dx : PE, ACS, PTX, costocondritis, gastritis Reassessment Reassessment admission offered but politely declined. CE neg x 2. Assessment & Plan Final Impression: (1) Chest pain (2) Hyperkalemia Depart Disposition: HOME, SELF-snf Meds Reported Medications Albuterol Sulfate (ALBUTEROL SULFATE) 0.63 Mg/3 Ml Vial.neb, INH PRN 07/09/17 Mu-Vits-Min Th/Lycopene/Lutein (CENTRUM SILVER TABLET) 1 Each Tablet, 1 TAB PO DAILY 07/09/17 Aspirin (ASPIR 81) 81 Mg Tablet.dr, 81 MG PO DAILY 07/09/17 Tamsulosin Hcl* (FLOMAX*) 0.4 Mg Cap, 0.4 MG PO DAILY, #30 CAP 07/09/17 Metoprolol Tartrate (METOPROLOL TARTRATE) 25 Mg Tablet, 25 MG PO BID, TAB 07/09/17 Digoxin (DIGOXIN) 125 Mcg Tablet, 0.125 MG PO DAILY, #30 TAB 07/09/17 Citalopram Hydrobromide (CITALOPRAM HBR) 20 Mg Tablet, 10 MG PO DAILY, TAB 07/09/17 Finasteride (FINASTERIDE) 5 Mg Tablet, 5 MG PO DAILY, #30 TAB 07/09/17 Buspirone Hcl (BUSPIRONE HCL) 5 Mg Tablet, 10 MG PO BID, #60 TAB 07/09/17 Alprazolam (ALPRAZOLAM) 0.25 Mg Tab.rapdis, 1 TAB PO QID 07/09/17 Omeprazole (OMEPRAZOLE) 40 Mg Capsule.dr, 20 MG PO DAILY 07/09/17 Levothyroxine Sodium (LEVOTHYROXINE SODIUM) 112 Mcg Tablet, 137 MCG PO DAILY, #30 TAB 07/09/17 AYSHA LARSEN DO Feb 11, 2020 14:07
--- OUTSIDE RECORDS SUMMARY | 2020-02-11 14:09 | XMS REPORT | Clinical Summary ---
Author Author [facility] Organization [facility] Address Unknown Phone Unavailable Care Team Providers Care Business Systems Architect Name Role Phone Bran Caballero MD PCP [phone] Allergies Comments Active Allergy Reactions Severity Noted Date Diarrhea & Dizziness Cefdinir Diarrhea, Medium 08/16/2016 Other (See Comments) "Headache, sore jaw, dizzy, & raised pulse" Levofloxacin Other (See High 08/16/2016 Comments) Nitrofuran Analogues 08/16/2016 "Nausea, increased dizziness, headache, upset stomach, chest pain, very weak, lost weight, & voice changed" Nitrofurantoin Other (See High 09/20/2016 Comments) "Head, heart, stomach, lung, and dizziness problems" Paroxetine Hcl Other (See High 08/16/2016 Comments) Medications End Date Status Medication Sig Dispensed Refills Start Date Active levothyroxine (SYNTHROID) levothyroxine 0 137 mcg tablet 137 mcg tablet Active finasteride (PROSCAR) 5 finasteride 5 0 mg tablet mg tablet Active digOXIN (LANOXIN) 125 mcg Take 125 mcg 0 05/09 (0.125 mg) tablet by mouth. 9 Active metoprolol tartrate metoprolol 0 (LOPRESSOR) 25 mg tablet tartrate 25 mg tablet Active tamsulosin (FLOMAX) 0.4 tamsulosin 0 mg capsule 0.4 mg capsule Active latanoprost (XALATAN) latanoprost 0 02/16/20 1 0.005 % ophthalmic 0.005 % eye 6 solution drops Active multivit-min/FA/lycopen/l Centrum 0 04/12 utein (CENTRUM SILVER MEN 0 ORAL) Active aspirin (Aspirin Low aspirin 0 Dose) 81 MG enteric 0 coated tablet Active ALPRAZolam (XANAX) 0.25 Take 0.25 mg 0 MG tablet by mouth nightly as needed for anxiety. Active ipratropium-albuteroL Take 3 mL by 0 (DUO-NEB) 0.5-2.5 mg/3 mL nebulization nebulizer 4 (four) times a day. Active ipratropium (ATROVENT) Take 500 mcg 0 0.02 % nebulizer solution by nebulization 4 (four) times a day. 01/28/2021 Active nitroglycerin (NITROSTAT) 1 under the 10 tablet 0 0.4 MG SL tablet tongue as 0 needed for angina, may repeat q5mins for up three doses 12/15/2019 Discontinued tobramycin 80 mg/mL Take 3.75 mL 0 solution for nebulization (300 mg 7 total) by nebulization every 12 (twelve) hours. 12/15/2019 Discontinued dextrose 50% syringe Infuse 25 mL 0 (12.5 g 7 total) into a venous catheter every 20 (twenty) minutes as needed (If blood glucose is between 41-69 mg/dL). 12/15/2019 Discontinued dextrose 50% syringe Infuse 50 mL 0 (25 g total) 7 into a venous catheter every 20 (twenty) minutes as needed (If blood glucose is 40 mg/dL or LESS). 01/29/2020 Discontinued albuterol (ACCUNEB) 2.5 albuterol 0 mg /3 mL (0.083 %) sulfate 2.5 nebulizer solution mg/3 mL (0.083 %) solution for nebulization USE 1 VIAL VIA NEBULIZER EVERY 6 HOURS NEEDED 12/30/2019 Discontinued diltiazem CD (CardIZEM Take 1 30 capsule 0 CD) 120 MG 24 hr capsule capsule (120 0 mg total) by mouth daily. 01/08/2020 Discontinued (Side effects) diltiazem CD (CardIZEM TAKE 1 90 capsule 0 CD) 120 MG 24 hr capsule CAPSULE(120 0 MG) BY MOUTH DAILY 01/29/2020 Discontinued diltiazem SR (CardIZEM Take 1 60 capsule 11 SR) 60 MG 12 hr capsule capsule (60 0 mg total) by mouth 2 (two) times a day. 01/29/2020 Discontinued diltiazem CD (CardIZEM TAKE 1 90 capsule 3 CD) 120 MG 24 hr capsule CAPSULE(120 0 MG) BY MOUTH DAILY Active Problems Problem Noted Date Electrolyte abnormality 10/15/2016 s/p R VATS and decortication 10/15/2016 Atrial fibrillation, currently in sinus rhythm 10/07 Anemia due to blood loss, acute 10/07/2016 Pleural effusion on right 10/06/2016 Elevated right diaphragm 10/06/2016 Atelectasis of right lung 10/06/2016 S/P MVR (mitral valve repair) 10/01/16 10/01/2016 Respiratory insufficiency 10/01/2016 Acute mitral insufficiency 09/26/2016 Encounters Care Team Description Date Type Specialty Evon Covarrubias MD Return Call 02/11/2020 Telephone Cardiology Evon Covarrubias MD Mitral valve insufficiency, unspecified etiology (Primary Dx) 02/10/2020 Telephone Cardiology Consult Evon Covarrubias MD Hyperthyroidism (Primary Dx) 01/29/2020 Office Visit Cardiology 01/29/2020 Travel Evon Covarrubias MD Med Refill 01/25/2020 Refill Cardiology Candi Russ MA medication 01/21/2020 Telephone Cardiology Evon Covarrubias MD Essential hypertension (Primary Dx); Mitral valve stenosis, unspecified etiology 01/06/2020 Telephone Cardiology Consult Evon Covarrubias MD Return Call 01/06/2020 Telephone Cardiology Evon Covarrubias MD Med Refill 12/28/2019 Refill Cardiology Evon Covarrubias MD Hyperkalemia (Primary Dx) 12/28/2019 Orders Only Cardiology Estella Alvarez 12/23/2019 Telephone Cardiology Ashley Montenegro MA 12/23/2019 Orders Only Cardiology Ashley Montenegro MA Acute mitral insufficiency (Primary Dx); Electrolyte abnormality 12/23/2019 Orders Only Cardiology 12/23/2019 Travel Evon Covarrubias MD Establishing care with new doctorsony for (Primary Dx); Acute mitral insufficiency; Atrial fibrillation, currently in sinus rhythm; Pleural effusion on right; S/P MVR (mitral valve repair) 10/01/16; Abnormal findings on diagnostic imaging of heart and coronary circulation ; Abnormal findings on diagnostic imaging of other specified body structures 12/15/2019 Office Visit Cardiology 12/15/2019 Travel after 02/10/2019 Surgical History Surgery Date Site/Laterality Comments APPENDECTOMY UPPER GASTROINTESTINAL ENDOSCOPY COLONOSCOPY CARDIAC SURGERY MITRAL VALVE REPAIR CARDIAC CATHETERIZATION 09/26/2016 N/A Proced ure: Cv right and left heart cath selective angiography lv; Surgeon: Jose Alejandro Tim MD; Location: [facility] [place] [facility]; Service: Cardiovascular; Laterality: N /A; REPAIR OR REPLACEMENT, 10/01/2016 Chest/N/A Procedu re: REDO MITRAL VALVE REPAIR ; Surgeon: MITRAL VALVE, WITH Jerry Griffith MD; Locat ion: [facility] [place]; CARDIOPULMONARY BYPASS Service: Cardiothoracic; L aterality: N/A; Medical devices from this surgery are i n the Implants section. CREATION, PERICARDIAL 10/08/2016 Chest/Right Procedur e: RIGHT VATS , DRAINAGE OF PERICARDIAL WINDOW EFFUSION; Surgeon: Jerry Griffith MD; Location: [facility] ER OR; Service: Cardiothoracic; Laterality: Right; TRACHEOSTOMY 10/12/2016 Neck/N/A Procedure: Trac heostomy; Surgeon: Jerry Griffith MD; Location: [facility] ER OR; Service: Cardiothoracic; Laterality: N/A; Medical History Medical History Date Comments GERD (gastroesophageal reflux disease) Colon polyp Diverticulosis Hemorrhoids MVP (mitral valve prolapse) Hyperlipidemia Glaucoma Anxiety Hypothyroidism, on chronic rreplacement therapy Atrial fibrillation with RVR (HCC) 10/07/2016 Anemia due to blood loss, acute 10/07/2016 Family History Medical History Relation Name Comments Pancreatic cancer Father Manish Rudolph Rectal cancer Mother Myra Rudolph Relation Name Status Comments Father Manish Rudolph Mother Myra Rudolph Social History Date Tobacco Use Types Packs/Day Years Used 03/11/1953 - 07/24/1967 Former Smoker Cigarettes, 2 Cigars Smokeless Tobacco: Never Used Drinks/Week oz/Week Comments Alcohol Use Do not drink at pres ent time Yes Sex Assigned at Date Recorded Male 06/22/2018 8:50 PM CDT Industry Job Start Date Occupation Not on file Not on file Not on file Date Recorded COVID-19 Exposure Response 01/29/2020 12:50 PM RN INTERVENTIONAL In the last month, have you been in contact with No / Unsure someone who was confirmed or suspected to have Coronavirus / COVID-19? Last Filed Vital Signs Reading Time Taken Comments Vital Sign 123/64 01/29/2020 12:59 PM RN INTERVENTIONAL Blood Pressure 94 01/29/2020 12:59 PM RN INTERVENTIONAL Pulse - - Temperature 18 01/29/2020 12:59 PM RN INTERVENTIONAL Respiratory Rate 96% 12/15/2019 3:17 PM CDT Oxygen Saturation - - Inhaled Oxygen Concentration 70.3 kg (155 lb) 01/29/2020 12:59 PM RN INTERVENTIONAL Weight 172.7 cm (5' 8") 01/29/2020 12:59 PM RN INTERVENTIONAL Height 23.57 01/29/2020 12:59 PM RN INTERVENTIONAL Body Mass Index Plan of Treatment Health Maintenance Due Date Last Done Comments SHINGLES VACCINES (#1) 1987 65+ PNEUMOCOCCAL VACCINE 2002 10/10/2015 (1 of 1 - PPSV23) INFLUENZA VACCINE 10/10/2019 12/09/2016, 01/17/2016, 12/30/2015, Additional history exists Implants Device Identifier Shelf Expiration Date Model / Serial / L ot Implanted Type Area Manufactur er [id number] / / Lead Pace Edenilson Mycrdl Unipol Tmpry Cardiovasc N/A: N/A [employer] Streamline - [id number] ular [place] - Implanted: 10/01/2016 at [facility] [place] [facility] (Quantity not on file) SRGRY 6500F / / Lead Pace Edenilson Mycrdl Unipol Tmpry Cardiovasc N/A: N/A [employer] Streamline - [id number] ular [place] - Implanted: 10/01/2016 at [facility] [place] [facility] (Quantity not on file) SRGRY 06/05/2021 [id number] / / [id number] [place] Perp Vasclr Ptfe 1.2x10cm Vascular N/A: N/A BARD 1.65mm - [id number] Graft PERIPHERAL Implanted: 10/01/2016 at [facility] (Quantity not on file) 07/06/2021 [id number] / / [id number] [place] Perp Vasclr Ptfe 1.2x10cm Vascular N/A: N/A BARD 1.65mm - [id number] Graft PERIPHERAL Implanted: 10/01/2016 at [facility] (Quantity not on file) Procedures Comments Procedure Name Priority Date/Time Associated Diag nosis BASIC METABOLIC PANEL Routine 01/01/2020 Hyperkal emia 1:36 PM CDT TSH+FREE T4 Routine 12/23/2019 Abnormal findin gs on 4:03 PM CDT diagnostic imaging of other specified body structures Establishing care with new doctor, encounter for Acute mitral insufficiency Atrial fibrillation, currently in sinus rhythm Pleural effusion on right S/P MVR (mitral valve repair) 10/01/16 TTE COMPLETE, WO Routine 12/23/2019 Abnormal find ings on CONTRAST, W DOPPLER 2:24 PM CDT diagnostic imagin g of ([id number]) heart and coronary circulation Acute mitral insufficiency Atrial fibrillation, currently in sinus rhythm Pleural effusion on right S/P MVR (mitral valve repair) XR CHEST 2 VW Routine 12/23/2019 Pleural effusio n on right 1:13 PM CDT PT AND PTT Routine 12/15/2019 Establishing ca re with 4:03 PM CDT new doctor, encounter for Acute mitral insufficiency Atrial fibrillation, currently in sinus rhythm Pleural effusion on right S/P MVR (mitral valve repair) 10/01/16 COMPREHENSIVE METABOLIC Routine 12/15/2019 Establ ishing care with PANEL 4:03 PM CDT new doctor, encount er for Acute mitral insufficiency Atrial fibrillation, currently in sinus rhythm Pleural effusion on right S/P MVR (mitral valve repair) 10/01/16 CBC HEMOGRAM Routine 12/15/2019 Establishing ca re with 4:03 PM CDT new doctor, encounter for Acute mitral insufficiency Atrial fibrillation, currently in sinus rhythm Pleural effusion on right S/P MVR (mitral valve repair) 10/01/16 ECG 12-LEAD Routine 12/15/2019 Establishing ca re with 3:25 PM CDT new doctor, encounter for after 02/10/2019 Results * Basic metabolic panel (01/01/2020 1:36 PM CDT) Glucose 101 (H) 65 - 99 mg/dL [facility] Comment: DIAGNOSTICS Fasting JAY reference interval For someone without known diabetes, a glucose value between 100 and 125 mg/dL is consistent with prediabetes and should be confirmed with a follow-up test. BUN 10 7 - 25 mg/dL Quarterly [facility] [place] Creatinine 0.63 (L) 0.70 - 1.11 mg/dL [facility] Comment: DIAGNOSTICS For patients >49 years of age, [place] the reference limit for Creatinine is approximately 13% higher for people identified as -[place]. EGFR Non-Afr. 92 > OR = 60 [facility] [place] mL/min/1.73m2 [facility] [place] EGFR 106 > OR = 60 [facility] [place] mL/min/1.73m2 [facility] BUN/creatinine 16 6 - 22 (calc) [facility] ratio [facility] Sodium 137 135 - 146 mmol/L Quarterly [facility] [place] Potassium 4.9 3.5 - 5.3 mmol/L [facility] [place] Chloride 90 (L) 98 - 110 mmol/L Quarterly [facility] [place] CO2 43 (H) 20 - 32 mmol/L Quarterly [facility] Calcium 9.6 8.6 - 10.3 mg/dL Quarterly [facility] Specimen Blood Resulting Agency Comment Performing Organization Information: Site ID: [id number] Name: [facility] Address: [address] [place] [phone] Director: Huey Todd Performing Organization Address City/[facility]/ZIP [facility] [place] P hussein Number [address] [address] * TSH+Free T4 (12/23/2019 4:03 PM CDT) TSH 0.029 (L) 0.450 - 4.500 uIU/mL [facility] T4, free 2.60 (H) 0.82 - 1.77 ng/dL [facility] Specimen Blood Narrative Performed At Performed at: [facility] [id number] Lead Programmer Analyst: Pop Hardin MD, Phone: [phone] Performing Organization Address City/[facility]/ZIP Code P hussein Number [facility] * Transthoracic Echocardiogram Complete, (w Contrast, Strain and 3D if needed) (12/23/2019 2:24 PM CDT) Ao Root 3.21 cm [facility] Diameter AoV Area, Vmax 4.22 cm2 [facility] AoV Area, VTI 3.95 cm2 [facility] AoV Mean PG 1.38 mmHg [facility] AoV Peak PG 2.41 mmHg [facility] AoV Vmax 0.78 m/s [facility] AoV VTI 0.14 m [facility] BSA Shaw 1.85 m2 [facility] BSA 1.83 m2 [facility] IVS,d 1.26 cm [facility] IVS/LVPW,2D 0.98 [facility] Left Atrium 4.20 cm [facility] Dimension Anterior LV,d 3.76 cm [facility] LV EF,2D 67.80 % [facility] LV,s 2.58 cm [facility] LVOT area 3.97 cm2 [facility] LVOT Diam,S 2.25 cm [facility] LVOT Vmax 0.83 m/s [facility] LVOT VTI 0.14 m [facility] LVPWD,d 1.28 cm [facility] PV Pk Grad 1.09 mmHg [facility] PV VMAX 0.52 m/s [facility] RVSP (TR) 49.13 mmHg [facility] TR Vpeak 3.14 mm/s [facility] MV E A ratio 0.76 [facility] RA pressure 10.00 mmHg [facility] TR pk grad 39.13 mmHg [facility] AoV area i VTI 2.15 cm2/m2 [facility] BSA Adeline BMI 23.57 kg/m2 [facility] E wave 140.25 msec [facility] decelartion time MV Peak A Dixon 1.72 m/s [facility] MV valve area p 5.28 cm2 [facility] 1/2 method MV Peak E Dixon 1.34 m/s [facility] MV stenosis 41.65 ms [facility] pressure 1/2 time AV LVOT peak 2.73 mmHg [facility] gradient Ascending aorta 3.24 cm [facility] RVSP 49.13 mmHg [facility] Ao Root 3.21 cm [facility] Diameter MV mean 9.13 mmHg [facility] gradient LV SYS VOL 24.05 ml [facility] LV HIDALGO VOL 60.34 ml [facility] LA area s A4C 13.84 cm2 [facility] LV SI Teich 2D 19.79 ml/m2 [facility] LV SV Teich 2D 36.29 ml [facility] LV Vol s Teich 24.05 ml [facility] PSAX LVOT CI 2.97 l/min/m2 [facility] LVOT CO 5.46 l/min [facility] LVOT HR for 101.55 bpm [facility] LVOT CO LVOT SI 29.29 ml/m2 [facility] MR peak grad 14.48 mmHg [facility] MV Vmax 1.90 m [facility] MV VTI Tips 0.33 m [facility] BSA Haycock 1.84 m2 [facility] AoV Vmn 0.56 [facility] IVS s 2D 1.82 [facility] LV FS Teich 2D 31.46 [facility] MV AE ratio 1.32 [facility] LV FS Cube 2D 31.46 [facility] LVOT Vmn 0.58 [facility] Pt Size 172.72 [facility] Pt Wt 70.31 [facility] Aov area Vmn 4.09 cm2 [facility] LA A_P score P 2.82 [facility] LVOT mean grad 1.52 mmHg [facility] AoV area I VMN 2.23 cm2/m2 [facility] bsa IVS pct thck 44.98 % [facility] PLAX LV SI Cube 2D 19.62 ml/m2 [facility] LV SV Cube 2D 35.99 ml [facility] LV vol d cube 53.09 ml [facility] 2D LV vol s cube 17.10 ml [facility] 2D LVPW pct thck 26.74 % [facility] PLAX LVPW s PLAX 1.62 cm [facility] MV Decel slope 9.57 m/s2 [facility] LA Vol MOD A4C 31.24 ml [facility] Velocity Ratio 1.06 m/s [facility] (V1/V2) EF 60.14 % [facility] E/A ratio 0.78 [facility] Specimen Addenda Addendum by Evon Covarrubias MD on 01/29/2020 12:21 PM Left Ventricular ejection fraction is 60 - 65%. Left ventricular systolic function is normal. There is mild sclerosis of the aortic valve leaflets. Right ventricular size is mildly enlarged. S/p mitral valve repair with mild mitral regurgitation and atleast moderate mitral stenosis with a mean gradient of 9 mmHg at a heart rate of 100 BPM. Spectral Doppler shows impaired relaxation pattern of left ventricular diastolic filling. Elevated LV filling pressure. Narrative Performed At [facility] Left Ventricular ejection fraction i s 60 - 65%. Left ventricular systolic function i s normal. There is mild sclerosis of the aorti c valve leaflets. Right ventricular size is mildly enl arged. S/p mitral valve repair with mild mi tral regurgitation and atleast moderate mitral regurgitation with a me an gradient of 9 mmHg at a heart rate of 100 BPM. Spectral Doppler shows impaired rela xation pattern of left ventricular diastolic filling. Elevated LV filling pressure. Performing Organization Address [facility]/ZIP Code P hussein Number [facility] [address] [place] [address] * XR Chest 2 Vw (12/23/2019 1:13 PM CDT) Specimen Narrative Performed At EXAMINATION: XR CHEST 2 VW [facility] CLINICAL HISTORY: 84 years Male J90 P leural effusion not elsewhere classified, Plural effusion COMPARISON: 10/26/2016 IMPRESSION: 1.There are operative changes related t o sternotomy and mitral valve replacement. The heart size is normal. 2.There is no evidence pulmonary edema. Small to moderate right pleural effusion. Tiny left pleural effusion an d/or pleural thickening. 3.Bony structures are osteopenic. A cou ple of healed rib fractures are noted laterally on the right. [facility]-[id number] Procedure Note Hm Interface, Radiology Results Incoming - 12/23/2019 1:37 PM CDT EXAMINATION: XR CHEST 2 VW CLINICAL HISTORY: 84 years Male J90 Pleural effusion not elsewhere classified, Plural effusion COMPARISON: 10/26/2016 IMPRESSION: 1.There are operative changes related to sternotomy and mitral valve replacement. The heart size is normal. 2.There is no evidence pulmonary edema. Small to moderate right pleural effusion. Tiny left pleural effusion and/or pleural thickening. 3.Bony structures are osteopenic. A coup le of healed rib fractures are noted laterally on the right. [facility]-[id number] Performing Organization Address [facility] P hussein Number [facility] [address] [place] [address] * PT and PTT (12/15/2019 4:03 PM CDT) PTT TNP sec [facility] Comment: DIAGNOSTICS TEST NOT PERFORMED [place] Unsuitable for analysis due to the age of the specimen. INR TNP [facility] Comment: DIAGNOSTICS TEST NOT PERFORMED [place] Unsuitable for analysis due to the age of the specimen. Specimen Blood Resulting Agency Comment Performing Organization Information: Site ID: [id number] Name: [facility] Address: [address] [place] [phone] Director: Huey Todd Performing Organization Address City/State/ZIP Code P hussein Number [place] [address] [address] * CBC hemogram (12/15/2019 4:03 PM CDT) [facility] WBC 7.5 3.8 - 10.8 [facility] Thousand/uL [facility] RBC 4.83 4.20 - 5.80 [facility] Million/uL [facility] [place] HGB 15.0 13.2 - 17.1 g/dL [facility] HCT 44.8 38.5 - 50.0 % [facility] [place] MCV 92.8 80.0 - 100.[address] [facility] MCH 31.1 27.0 - 33.0 pg [facility] [place] MCHC 33.5 32.0 - 36.0 g/dL Quarterly [facility] RDW 11.4 11.0 - 15.0 % Quarterly [facility] [place] Platelet count 168 140 - 400 [facility] Thousand/uL [facility] [place] MPV 11.3 7.5 - 12.5 fL [facility] [place] Specimen Blood Resulting Agency Comment Performing Organization Information: Site ID: [id number] Name: [facility] Address: [address] [place] [phone] Director: Huey Todd Performing Organization Address City/State/ZIP Code P hussein Number [place] [phone] * Comprehensive metabolic panel (12/15/2019 4:03 PM CDT) [facility] Glucose 100 (H) 65 - 99 mg/dL [facility] Comment: DIAGNOSTICS Fasting [place] reference interval For someone without known diabetes, a glucose value between 100 and 125 mg/dL is consistent with prediabetes and should be confirmed with a follow-up test. BUN 10 7 - 25 mg/dL [facility] [place] Creatinine 0.59 (L) 0.70 - 1.11 mg/dL [facility] Comment: DIAGNOSTICS For patients >49 years of age, [place] the reference limit for Creatinine is approximately 13% higher for people identified as -[place]. EGFR Non-Afr. 94 > OR = 60 [facility] [place] mL/min/1.73m2 [facility] [place] EGFR 109 > OR = 60 [facility] [place] mL/min/1.73m2 [facility] BUN/creatinine 17 6 - 22 (calc) [facility] ratio [facility] [place] Sodium 135 135 - 146 mmol/L [facility] [place] Potassium 7.0 (HH) 3.5 - 5.3 mmol/L [facility] Comment: DIAGNOSTICS Red blood cells were present [place] in the sample upon receipt in the laboratory. A false elevation of K, Phos and LD as well as a false decrease in Glucose may occur due to prolonged contact with red cells. Verified by repeat analysis. Chloride 88 (L) 98 - 110 mmol/L Quarterly [facility] [place] CO2 38 (H) 20 - 32 mmol/L [facility] [place] Calcium 10.0 8.6 - 10.3 mg/dL [facility] [place] Protein 7.2 6.1 - 8.1 g/dL [facility] [place] Albumin, S 4.4 3.6 - 5.1 g/dL [facility] [place] Globulin, total 2.8 1.9 - 3.7 g/dL [facility] (calc) [facility] [place] Albumin/globuli 1.6 1.0 - 2.5 (calc) [facility] n ratio [facility] [place] Total bilirubin 0.7 0.2 - 1.2 mg/dL Quarter[facility] [place] Alkaline 53 35 - 144 U/L Quarterly phosphatase [facility] AST 17 10 - 35 U/L [facility] [place] ALT 12 9 - 46 U/L [facility] [place] Specimen Blood Resulting Agency Comment Performing Organization Information: Site ID: [id number] Name: [facility] Address: [address] [place] [phone] Director: Huey Todd Performing Organization Address City/State/ZIP Code P hussein Number [place] [address] [address] * ECG 12 lead (12/15/2019 3:25 PM CDT) Ventricular 101 [facility] rate Atrial rate 101 [facility] [place] interval 214 [facility] QRSD interval 120 [facility] QT interval 340 [facility] QTC interval 440 [facility] P axis 1 64 [facility] QRS axis 1 106 [facility] T wave axis 42 [facility] EKG impression Sinus tachycardia with 1st [facility] degree AV block-Right bundle branch block-Abnormal ECG-In automated comparison with ECG of 26-OCT-2016 04:04,-[place] interval has increased-Right bundle branch block is now present- Specimen Narrative Performed At This result has an attachment that is n ot available. 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
--- OUTSIDE RECORDS SUMMARY | 2020-02-11 14:09 | XMS REPORT | Continuity of Care Document ---
Author Author [facility] t Organization [facility] Address [address] [place] [address] Dr. Castillo. [address] [place] [address] Phone Unavailable Care Team Providers Care Clinic Lead Name Role Phone Federico SANCHEZ, Xander Sotomayor PCP [phone] Marci SANCHEZ, Evon Attphys Jeb SALCEDO, Candi Attphys Unavailable Alvarez, Estella Attphys Unavailable Lan SALCEDO, Ashley Attphys Unavailable HIDALGO, SOUHEIL Attphys Unavailable ERIKA, DAVID Attphys Unavailable Payers Payer Name Policy Type Policy Number Effective Date Expiration Date S vilma MEDICAREMEDICARE PART A AND [id number] 2001-PresentHOU [facility] [id number] 2002 00:00:00 Pierre Galloway AARPAARP [id number] 2001-PresentCommercial [id number] 00:00:00 Pierre Galloway Problems Condition Name Condition Details Condition Category Status Onset Date Resolution Date Last Treatment Date Treating Clinician Comments Source Electrolyte abnormality Electrolyte abnormality Disease Active 2016-10-15 00:00:[address] s/p R VATS and decortication s/p R VATS and decortication Disease Active 2016-10-15 00:00:00 Pierre Galloway Atrial fibrillation, currently in sinus rhythm Atrial fibrillation, currently in sinus rhythm Disease Active 2016-10-07 00:00:00 Pierre Galloway Anemia due to blood loss, acute Anemia due to blood loss, acute Dis ease Active 2016-10-07 00:00:00 Pierre Galloway Pleural effusion on right Pleural effusion on right Disease Ac tive 2016-10-06 00:00:[address] Elevated right diaphragm Elevated right diaphragm Disease Acti ve 2016-10-06 00:00:[address] Atelectasis of right lung Atelectasis of right lung Disease Ac tive 2016-10-06 00:00:[address] S/P MVR (mitral valve repair) 10/01/16 S/P MVR (mitral valve repair) 10/01/16 Disease Active 2016-10-01 00:00:00 Pierre Galloway Respiratory insufficiency Respiratory insufficiency Disease Ac tive 2016-10-01 00:00:[address] Acute mitral insufficiency Acute mitral insufficiency Disease Active 2016-09-26 00:00:[address] Allergies, Adverse Reactions, Alerts Allergy Name Allergy Type Status Severity Reaction(s) Onset Date Inacti ve Date Treating Clinician Comments Source Nitrofurantoin Propensity to adverse reactions to drug Active Other (See Comments) 2016-09-20 00:00:00 "Nausea, inc reased dizziness, headache, upset stomach, chest pain, very weak, lost weight, & voice changed" Pierre Galloway Cefdinir Propensity to adverse reactions to drug Active Diarrhea, Other (See Comments) 2016-08-16 00:00:00 Diarrhea & Dizziness Pierre Galloway Levofloxacin Propensity to adverse reactions to drug Active Other (See Comments) 2016-08-16 00:00:00 "Headache, sore jaw, dizzy, & raised pulse" Pierre Galloway Nitrofuran Analogues Propensity to adverse reactions to drug Active 2016-08-16 00:00:00 Pierre Lemon odbryce Paroxetine Hcl Propensity to adverse reactions to drug Active Other (See Comments) 2016-08-16 00:00:00 "Head, heart , stomach, lung, and dizziness problems" Pierre Galloway Family History Family Member Diagnosis Comments Start Date Stop Date Source Natural father Pancreatic cancer Meagan Galloway Natural mother Rectal cancer Pierre Galloway Social History Social Habit Start Date Stop Date Quantity Comments Source Sex Assigned At M Meagan Galloway Exposure to SARS-CoV-2 (event) Not sure Pierre Galloway Cigarettes smoked current (pack per day) - Reported 00:00:00 2019-12-15 00:00:00 Pierre Galloway Tobacco use and exposure 2019-12-15 00:00:00 2019-12-15 00:00:00 Neve r used Pierre Galloway Alcohol intake 2019-12-15 00:00:00 2019-12-15 00:00:00 Current drinker of alcohol (finding) Pierre Galloway Alcohol Comment 2016-08-16 00:00:00 2016-08-16 00:00:00 Do not d lizethoang at present time Pierre Galloway History of tobacco use 1951-03-11 00:00:00 1965-07-24 00:00:00 Curren t smoker Pierre Galloway Smoking Status Start Date Stop Date Source Former smoker 2019-12-15 00:00:00 2019-12-15 00:00:00 Pierre Galloway Medications Ordered Medication Name Filled Medication Name Start Date Stop Da te Current Medication? Ordering Clinician Indication Dosage Frequency Signature (SIG) Comments Components Source levothyroxine (SYNTHROID) 137 mcg tablet 2020-01-29 13:03:04 Yes levothyroxine 137 mcg tablet Pierre mccord finasteride (PROSCAR) 5 mg tablet 2020-01-29 13:03:04 Yes finasteride 5 mg tablet Pierre watson metoprolol tartrate (LOPRESSOR) 25 mg tablet 2020-01-29 13:03:04 Yes metoprolol tartrate 25 mg tablet Pierre Galloway tamsulosin (FLOMAX) 0.4 mg capsule 2020-01-29 13:03:04 Yes tamsulosin 0.4 mg capsule Pierre wu ALPRAZolam (XANAX) 0.25 MG tablet 2020-01-29 13:03:04 Yes .25mg QD Take 0.25 mg by mouth nightly as needed for anxiety. Pierre Galloway ipratropium-albuteroL (DUO-NEB) 0.5-2.5 mg/3 mL nebulizer 2020-01-29 13:03:04 Yes 3mL Q.25D Take 3 mL by nebulization 4 (fou r) times a day. Pierre Galloway ipratropium (ATROVENT) 0.02 % nebulizer solution 2020-01-29 13:03:04 Yes 500ug Q.25D Take 500 mcg by nebulization 4 (four) times a d ay. Pierre Galloway albuterol (ACCUNEB) 2.5 mg /3 mL (0.083 %) nebulizer solutio n 2020-01-29 13:02:15 2020-01-29 00:00:00 No albuterol sulfate 2.5 mg/3 mL (0.083 %) solution for nebulization USE 1 VIAL VIA NEBULIZER EVERY 6 HOURS NEEDED Pierre Galloway nitroglycerin (NITROSTAT) 0.4 MG SL tablet 01-28 00:00:00 2021-01-28 23:59:00 Yes 1 under the to ngue as needed for angina, may repeat q5mins for up three doses Pierre Galloway diltiazem CD (CardIZEM CD) 120 MG 24 hr capsule 2020-01-25 00:00:00 2020-01-29 00:00:00 No TAKE 1 CAPSULE(120 MG) BY MOUTH DAILY Pierre Galloway diltiazem SR (CardIZEM SR) 60 MG 12 hr capsule 2 00:00:00 2020-01-29 00:00:00 No 60mg Q.5D Take 1 capsule (60 mg total) by mouth 2 (two) times a day. Pierre Galloway diltiazem CD (CardIZEM CD) 120 MG 24 hr capsule 2019-12-30 00:00:2020-01-08 00:00:00 No TAKE 1 CAPSULE(120 MG) BY MOUTH DAILY Pierer Galloway diltiazem CD (CardIZEM CD) 120 MG 24 hr capsule 2019-12-28 00:00:00 2019-12-30 00:00:00 No 120mg QD Take 1 capsule (120 mg total) b y mouth daily. Pierre Galloway multivit-min/FA/lycopen/lutein (CENTRUM SILVER MEN ORAL) 2019-05-01 00:00:00 Yes Centrum Pierre Galloway aspirin (Aspirin Low Dose) 81 MG enteric coated tablet 2019-05-01 00:00:00 Yes aspirin Pierre watson digOXIN (LANOXIN) 125 mcg (0.125 mg) tablet 2018-05-20 00:00:00 Yes 125ug Take 125 mcg by mouth. Winsome Galloway tobramycin 80 mg/mL solution for nebulization 25-10-17 00:00:00 2019-12-15 00:00:00 No 300mg Q.5D Take 3.75 mL ( 300 mg total) by nebulization every 12 (twelve) hours. Pierre Galloway dextrose 50% syringe 2016-10-26 00:00:00 2019-12-15 00:00:00 No 12.5g Infuse 25 mL (12.5 g total) into a venous catheter every 20 (twenty) minutes as needed (If blood glucose is between 41-69 mg/dL). Pierre Galloway dextrose 50% syringe 2016-10-26 00:00:00 2019-12-15 00:00:00 No 25g Infuse 50 mL (25 g total) into a venous catheter every 20 (twenty) minutes as needed (If blood glucose is 40 mg/dL or LESS). Pierre Galloway latanoprost (XALATAN) 0.005 % ophthalmic solution 2016-02-16 00:00:00 Yes latanoprost 0.005 % eye drops Pierre Galloway Vital Signs Vital Name Observation Time Observation Value Comments Source Systolic blood pressure 2020-01-29 12:59:00 123 mm[Hg] Pierre Galloway Diastolic blood pressure 2020-01-29 12:59:00 64 mm[Hg] Pierre Galloway Heart rate 2020-01-29 12:59:00 94 /min Pierre Galloway Respiratory rate 2020-01-29 12:59:00 18 /min Zena Galloway Body height 2020-01-29 12:59:00 172.7 cm Pierre Galloway Body weight 2020-01-29 12:59:00 70.308 kg Pierre Galloway BMI 2020-01-29 12:59:00 23.57 kg/m2 Pierre Galloway Oxygen saturation in Arterial blood by Pulse oximetry 2019-03 006 15:17:00 96 /min Pierre Galloway Procedures Procedure Date / Time Performed Performing Clinician [facility] e BASIC METABOLIC PANEL 2020-01-01 13:36:00 Evon Covarrubias TSH+FREE T4 2019-12-23 16:03:00 Evon Covarrubias TTE COMPLETE, WO CONTRAST, W DOPPLER ([id number]) 2019-12-23 14:2 4:30 Evon Covarrubias XR CHEST 2 VW 2019-12-23 13:13:33 Evon Covarrubias CBC HEMOGRAM 2019-12-15 16:03:00 Evon Covarrubias COMPREHENSIVE METABOLIC PANEL 2019-12-15 16:03:00 Rgeinaldo Covarrubias PT AND PTT 2019-12-15 16:03:00 Evon Covarrubias ECG 12-LEAD 2019-12-15 15:25:04 PedrojonesEvon hendricks Plan of Care Planned Activity Planned Date Details Comments Source Future Scheduled Test 2019-10-10 00:00:00 INFLUENZA VACCINE [code = INFLUENZA VACCINE] Pierre Ruizist Future Scheduled Test 2002 00:00:00 65+ PNEUMOCOCCAL V ACCINE (1 of 1 - PPSV23) [code = 65+ PNEUMOCOCCAL VACCINE (1 of 1 - PPSV23)] [facility] Future Scheduled Test 1987 00:00:00 SHINGLES VACCINES (#1) [code = SHINGLES VACCINES (#1)] [place] [facility] En[facility]ters Start Date/Time End Date/Time [facility] ID Source 2020-01-29 00:00:00 2020-01-29 00:00:00 Outpatient EVON COVARRBUIAS [facility] [id number] [facility] 2019-12-31 00:00:00 2019-12-31 00:00:00 Outpatient ROSELINE COVARRUBIASDONNA [facility] [id number] Pierre Galloway 2019-12-23 00:00:00 2019-12-23 00:00:00 Outpatient ROSELINE COVARRUBIASDONNA [facility] [id number] Pierre Galloway 2019-12-23 00:00:00 2019-12-23 00:00:00 Outpatient ROSELINE COVARRUBIASDONNA [facility] [id number] Jay [facility] 2019-12-23 00:00:00 2019-12-23 00:00:00 [facility] [id number] Pierre Galloway 2019-12-23 00:00:00 2019-12-23 00:00:00 [facility] [id number] Jay [facility] 2019-12-15 00:00:00 2019-12-15 00:00:00 [facility] [id number] [place] [facility] Results Test Description Test Time Test Comments Results Result Comments Source ECG 12 lead 2020-01-04 15:52:30 Test Item Ventricular rate (test code = 253) 101 Atrial rate (test code = 255) 101 AZ interval (test code = 266) 214 QRSD interval (test code = 260) 120 QT interval (test code = 264) 340 QTC interval (test code = 265) 440 P axis 1 (test code = 267) 64 QRS axis 1 (test code = 268) 106 T wave axis (test code = 270) 42 EKG impression (test code = 273) Sinus tachycardia wit h 1st degree AV block- Right bundle branch block-Abnormal ECG-In automated comparison with ECG of 26-OCT-2016 04:04,-AZ interval has increased-Right bundle branch block is now present- [facility] metabolic [id number] 22:35:00* Test Item Value Reference Range Interpretation Comments Glucose (test code = 2345-7) 101 mg/dL 65-99 H Fasting reference interval For someone without known diabetes, a glucose valuebetween 100 and 125 mg/dL is consistent withprediabetes and should be confirmed with afollow-up test. BUN (test code = 3094-0) 10 mg/dL 7-25 Creatinine (test code = 2160-0) 0.63 mg/dL 0.7-1.11 L For patients >49 years of age, the reference limitfor Creatinine is approximately 13% higher for peopleidentified as -Scottish. EGFR Non-Afr. Scottish (test code = 2775) 92 > OR = 60 mL /min/1.73m2 EGFR (test code = 61561-7) 106 > OR = 60 mL/min/1.73m2 BUN/creatinine ratio (test code = 3097-3) 16 6- 22 (calc) Sodium (test code = 2951-2) 137 mmol/L 135-146 Potassium (test code = 2823-3) 4.9 mmol/L 3.5-5.3 Chloride (test code = 5-0) 90 mmol/L 98-110 L CO2 (test code = 2027-9) 43 mmol/L 20-32 H Calcium (test code = 95139-7) 9.6 mg/dL 8.6-10.3 RAC (test code = RAC) Performing Organization Info rmation: Site ID: [id number] Name: [facility] Address: [address] [place] [id number] Director: Huey Todd Lab Interpretation (test code = 71169-0) Abnormal [place] [facility] [id number] 09:10:00* Test Item Value Reference Range Interpretation Comments TSH (test code = 78622-3) 0.029 0.450- 4.500 uIU/mL L T4, free (test code = 3024-7) 2.60 ng/dL 0.82-1.77 H JAMIR (test code = JAMIR) Performed at: [facility] [id number] Director: Pop Hardin MD, Phone: [phone] Lab Interpretation (test code = 71195-3) Abnormal [place] [facility] [id number] 05:41:00* Test Item Value Reference Range Interpretation Comments Glucose (test code = 2345-7) 100 mg/dL 65-99 H Fasting reference interval For someone without known diabetes, a glucose valuebetween 100 and 125 mg/dL is consistent withprediabetes and should be confirmed with afollow-up test. BUN (test code = 3094-0) 10 mg/dL 7-25 Creatinine (test code = 2160-0) 0.59 mg/dL 0.7-1.11 L For patients >49 years of age, the reference limitfor Creatinine is approximately 13% higher for peopleidentified as -Scottish. EGFR Non-Afr. Scottish (test code = 2775) 94 > OR = 60 mL /min/1.73m2 EGFR (test code = 24181-1) 109 > OR = 60 mL/min/1.73m2 BUN/creatinine ratio (test code = 3097-3) 17 6- 22 (calc) Sodium (test code = 2951-2) 135 mmol/L 135-146 Potassium (test code = 2823-3) 7.0 mmol/L 3.5-5.3 HH Red blood cells were present in the sample upon receiptin the laboratory. A false elevation of K, Phos and LDas well as a false decrease in Glucose may occur due to prolonged contact with red cells. Verified by repeat analysis. Chloride (test code = 5-0) 88 mmol/L 98-110 L CO2 (test code = 2027-) 38 mmol/L 20-32 H Calcium (test code = 19816-0) 10.0 mg/dL 8.6-10.3 Protein (test code = 2885-2) 7.2 g/dL 6.1-8.1 Albumin, S (test code = 1751-7) 4.4 g/dL 3.6-5.1 Globulin, total (test code = 96274-7) 2.8 1.9- 3.7 g/dL (c alc) Albumin/globulin ratio (test code = 1759-0) 1.6 1.0- 2.5 ( calc) Total bilirubin (test code = 1974-) 0.7 mg/dL 0.2-1.2 Alkaline phosphatase (test code = 6768-6) 53 U/L 35-144 AST (test code = 1920-8) 17 U/L 10-35 ALT (test code = 1742-6) 12 U/L 9-46 RAC (test code = RAC) Performing Organization Info rmation: Site ID: [id number] Name: [facility] Address: [address] [place] [id number] Director: Huey Todd Lab Interpretation (test code = 13857-8) Abnormal [facility] [id number] 05:41:00* Test Item Value Reference Range Interpretation Comments WBC (test code = 6690-2) 7.5 3.8- 10.8 Thousand/uL RBC (test code = 789-8) 4.83 4.20- 5.80 Million/uL HGB (test code = 718-7) 15.0 g/dL 13.2-17.1 HCT (test code = 4544-3) 44.8 % 38.5-50 MCV (test code = 787-2) 92.8 fL 80-100 MCH (test code = 785-6) 31.1 pg 27-33 MCHC (test code = 786-4) 33.5 g/dL 32-36 RDW (test code = 788-0) 11.4 % 11-15 Platelet count (test code = 777-3) 168 140- 400 Thousand/u L MPV (test code = 776-5) 11.3 fL 7.5-12.5 RAC (test code = RAC) Performing Organization Info rmation: Site ID: [id number] Name: [facility] Address: [address] [place] [address] Director: Huey Todd [place] [facility]ism[facility] and [id number] 05:41:00* Test Item Value Reference Range Interpretation Comments PTT (test code = 94645-2) TNP sec TE ST NOT PERFORMED Unsuitable for analysis dueto the age of the specimen. INR (test code = 6301-6) TNP SARAH T NOT PERFORMED Unsuitable for analysis dueto the age of the specimen. RAC (test code = RAC) Performing Organization Info rmation: Site ID: [id number] Name: [facility] Address: [address] [place] [address] Director: Huey Woodridge [place] JosephistCHESGunnar 2 [id number] 15:43:00 [place] [address] Patient Name: NAY ADAMES MR #: [id number] : 1935 Age/Sex: 83/M Req #: [id number] Adm Physician: Ordered by: GABINO HIDALGO MD Report #: [id number] Location: [facility] Room/Bed: Procedure: [id number] DX/CH EST 2 VIEWS Exam Date: 10/14/18 Exam Time: 1430 REPORT STATUS: Signed EXAMINATION: CHEST 2 VIEWS INDICATION: Cough COMPARISON: Chest CT of 06/26/2017 FINDINGS: LINES/TUBES:Sternotomy wires intact. LUNGS:The jorge gs are moderately inflated. Patchy opacity at the right lung base silhouettes the right hemidiaphragm. Subsegmental atelectasis at the left lung base. PLEURA:Moderate Right pleural effusion. Trace left pleural effusion. No pneumo thorax. MEDIASTINUM:The cardiomediastinal silhouette appears normal in size and shape. BONES/SOFT TISSUES:No acute osseous injury. Old healed right la teral rib fractures. ABDOMEN:No free air under the diaphragm. IMP RESSION: Moderate pleural effusion. Trace left pleural effusion. Patchy opacity at the right lung base more likely represents atelectasis than superim posed aspiration or pneumonia. Mild subsegmental atelectasis at the left lung base. Signed by: Bettie Barnard MD on 10/14/2018 3:46 PM Dictated By: WAN BARNARD MD 1546 Transcribe d By: TASHI on 10/14/18 0374 COPY TO: GABINO HIDALGO MD CT CHEST WO [place] [address] Patient Name: NAY ADAMES MR #: [id number] : 1935 Age/Sex: 82/M Req #: [id number] Adm Physician: Ordered by: JOANN JAMES MD Report #: [id number] Location: CT Room/Bed: Procedure: [id number] CT/CT CHEST WO Exam Date: 06/09 10/26 Exam Time: 1450 REPORT STATUS: Signed P ROCEDURE: CT CHEST WITHOUT CONTRAST CT scan of the chest WITHOUT intravenous c ontrast, using standard protocol. TECHNIQUE: The chest was scanned ut ilizing a multidetector helical scanner from the apex to the level of the adr enal glands. No IV contrast was administered per physician's request. Macdonald l and sagittal multiplanar reformations were obtained. COMPARISON: None . INDICATIONS: EVALUATION OF TRACHEOSTOMY FINDINGS: Lines/tu bes: Tracheostomy tube in place, with distal tip approximately 4-5 cm above t he marilee. No surrounding soft tissue edema or well defined fluid collection in the anterior upper chest. 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 Linear opacities consistent with scarring are also noted in the anterior right lower lobe and right middle lobe (sagittal image 20-23). No consolidation or pulmonary siobhan s. No nodules. Airways are clear, without endobronchial lesions. Pleura: No effusion. No pneumothorax. Heart and mediastinum: The thyroid is unrem arkable. Enlargement of the left atrium. Atherosclerotic calcification of the coronary arteries, thoracic aorta and mitral annulus. Main pulmonary artery is enlarged, measuring approximately 3.7 cm. Lymph nodes: No mediastina l, hilar, or axillary adenopathy. Abdomen: Limited views of the upper abdomen show no abnormality within the visualized spleen, pancreas, or kidneys. The a drenal glands are unremarkable. 8mm hypodense lesion in hepatic segment VII ( series 2 image 23) has measure fluid density consistent with a simple cyst.. Bones: No aggressive lytic lesion. Soft tissues are grossly unremarkabl e. IMPRESSION: 1. tracheostomy tube in place, with distal tip appro ximately 4-5 cm above the marilee. 2. 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 Linear opacities, likely reflecting scarring are also noted in t he left lower lobe, anterior, right lower lobe and right middle lobe. No c onsolidation. 3. Atelectatic changes in the left lower lobe, which are likely chronic. Alex Hewitt M.D. Dictated by: Wagner Hewitt M.D. on 06/26/2017 at 18:51 Electronically approved by: Lena Hewitt M.D. on 06/26/2017 at 18:51 Dictated By: KENNETH HEWITT MD 50 Fall scribed By: INDY on 06/26/171850 COPY TO: JOANN JAMES MD
[2020-02-11] MEDS ORDERED: ASPIRIN 81 MG CHEW TAB PO ONE (14:15)
[2020-02-11 14:30] LABS: BASOPHILS % 0.3 % (0.0-1.0); EOSINOPHILS % 0.2 % (0.0-6.0); HEMATOCRIT 45.6 % (38.2-49.6); HEMOGLOBIN 14.4 g/dL (14.0-18.0); LYMPHOCYTES # (AUTO) 0.4 (1.0-3.2); LYMPHOCYTES % 6.1 % (18.0-39.1); MEAN CORPUSCULAR HEMOGLOBIN 30.6 pg (28-32); MEAN CORPUSCULAR HGB CONC 31.6 g/dL (31-35); MEAN CORPUSCULAR VOLUME 96.8 fL (81-99); MONOCYTES # (AUTO) 0.4 (0.2-0.8); MONOCYTES % 5.9 % (4.4-11.3); NEUTROPHILS # (AUTO) 5.3 (2.1-6.9); NEUTROPHILS % 87.3 % (38.7-80.0); PLATELET COUNT 180 x10e3/uL (140-360); RED BLOOD COUNT 4.71 x10e6/uL (4.3-5.7); RED CELL DISTRIBUTION WIDTH 11.9 % (11.7-14.4)
[2020-02-11 15:03] LABS: ALANINE AMINOTRANSFERASE 15 IU/L (0-55); ALBUMIN 4.2 g/dL (3.5-5.0); ALBUMIN/GLOBULIN RATIO 1.2 (0.8-2.0); ALKALINE PHOSPHATASE 51 IU/L (40-150); ANION GAP 13.2 mmol/L (8-16); BLOOD UREA NITROGEN 7 mg/dL (7-26); BUN/CREATININE RATIO 10 (6-25); CALCIUM 9.2 mg/dL (8.4-10.2); CARBON DIOXIDE 39 mmol/L (22-29); CHLORIDE 85 mmol/L (98-107); CREATINE KINASE 66 IU/L (30-200); CREATININE, SERUM 0.69 mg/dL (0.72-1.25); EST GLOMERULAR FILTRATION RATE > 60 ML/MIN (60-); GLUCOSE 111 mg/dL (74-118); SODIUM 132 mmol/L (136-145)
[2020-02-11 15:11] LABS: POTASSIUM 5.2 mmol/L (3.5-5.1)
--- NOTE | 2020-02-11 15:26 | Diagnostic Imaging Report ---
Chest, 1 view, 02/11/2020. History: Chest pain. Comparison: 10/14/2018. Findings: The cardiomediastinal silhouette and pulmonary vasculature are within normal limits for a portable exam. Bibasilar opacities and blunting of the costophrenic sulci, right greater than left, are unchanged. Median sternotomy wires are intact. There are no acute osseous or soft tissue abnormalities. Impression: Bibasilar opacities with pleural effusions, without significant change. Signed by: Baldev Sy on 02/11/2020 3:22 PM
[2020-02-11] MEDS ORDERED: ONDANSETRON HCL INJ 2MG/ML 2ML 2 MG/ML VIAL IV STA (16:14)
[2020-02-11 17:36] LABS: CREATINE KINASE 51 IU/L (30-200)
== END 2020-02-11 18:02 | disposition home or self-care (01) ==
LOC: ER 14:06
DX: R07.9 Chest pain, unspecified (principal); R10.13 Epigastric pain; E87.5 Hyperkalemia; I25.10 Atherosclerotic heart disease of native coronary artery without angina pectoris; F41.9 Anxiety disorder, unspecified; F32.9 Major depressive disorder, single episode, unspecified; Z95.2 Presence of prosthetic heart valve; R94.31 Abnormal electrocardiogram [ECG] [EKG]
CPT/HCPCS: 36415; 71045; 80053; 82550; 82553; 83880; 84484; 85025; 85379; 93005; 99284; J2405; U0002

== ENCOUNTER 2020-07-01 14:15 | Inpatient (IN) | payer MEDICARE ==
[~2020-07-01] VITALS: Ht 172.7 cm; Wt 64.7 kg
[~2020-07-01 14:15] MED LIST changes: +LIDOCAINE HCL 2% LOCAL INJ 5 ML SDV VIAL INJ ONE; +PROPOFOL IV EMULSION 10 MG/ML 20 ML VIAL ONE; +ROCURONIUM BROMIDE 10 MG/ML 5ML VIAL IV ONE; +SUCCINYLCHOLINE CHLORIDE 20 MG/ML 10ML VIAL ONE
[2020-07-01] MEDS ORDERED: ASPIRIN 81 MG CHEW TAB PO ONE (14:45)
[2020-07-01 14:58] LABS: BASOPHILS % 0.2 % (0.0-1.0); EOSINOPHILS % 0.1 % (0.0-6.0); HEMATOCRIT 41.5 % (38.2-49.6); HEMOGLOBIN 13.7 g/dL (14.0-18.0); LYMPHOCYTES # (AUTO) 0.2 (1.0-3.2); LYMPHOCYTES % 2.1 % (18.0-39.1); MEAN CORPUSCULAR HEMOGLOBIN 31.8 pg (28-32); MEAN CORPUSCULAR VOLUME 96.3 fL (81-99); MONOCYTES # (AUTO) 0.6 (0.2-0.8); MONOCYTES % 7.3 % (4.4-11.3); NEUTROPHILS # (AUTO) 7.3 (2.1-6.9); NEUTROPHILS % 89.8 % (38.7-80.0); PLATELET COUNT 133 x10e3/uL (140-360); RED BLOOD COUNT 4.31 x10e6/uL (4.3-5.7); RED CELL DISTRIBUTION WIDTH 14.6 % (11.7-14.4)
[2020-07-01 15:19] LABS: INR 0.96; PROTHROMBIN TIME 13.4 seconds (11.9-14.5)
[2020-07-01 15:32] LABS: CREATINE KINASE MB 1.3 ng/mL (0-5.0)
[2020-07-01 15:48] LABS: ALANINE AMINOTRANSFERASE 473 IU/L (0-55); ALBUMIN 3.3 g/dL (3.5-5.0); ALBUMIN/GLOBULIN RATIO 0.8 (0.8-2.0); ALKALINE PHOSPHATASE 836 IU/L (40-150); ANION GAP 19.4 mmol/L (8-16); BLOOD UREA NITROGEN 14 mg/dL (7-26); BUN/CREATININE RATIO 25 (6-25); CARBON DIOXIDE 39 mmol/L (22-29); CHLORIDE 78 mmol/L (98-107); CREATININE, SERUM 0.57 mg/dL (0.72-1.25); EST GLOMERULAR FILTRATION RATE > 60 ML/MIN (60-); GLUCOSE 114 mg/dL (74-118); SODIUM 131 mmol/L (136-145)
[2020-07-01 15:50] LABS: POTASSIUM 5.4 mmol/L (3.5-5.1)
[2020-07-01] MEDS ORDERED: SODIUM CHLORIDE 0.9% 1000ML 1,970 ML IV NR (16:15)
[2020-07-01] MEDS ORDERED: PIPERACILLIN/TAZO 4.5 GM 100 ML IV STA (16:44)
[2020-07-01 16:53] LABS: CLARITY,URINE SL CLOUDY (CLEAR); COLOR,URINE ORANGE (YELLOW); KETONES,URINE NEGATIVE (NEGATIVE); LEUKOCYTE ESTERASE ,URINE NEGATIVE (NEGATIVE); NITRITE,URINE NEGATIVE (NEGATIVE); PROTEIN,URINE DIPSTICK NEGATIVE (NEGATIVE); URINE UROBILINOGEN 0.2 mg/dL (0.2 - 1)
[2020-07-01] MEDS ORDERED: METRONIDAZOLE 750MG/NS 150ML 150 ML IV ONE (17:00)
[2020-07-01] MEDS ORDERED: SODIUM CHLORIDE 0.9% 1000ML 1,970 ML IV ONE (17:00)
[2020-07-01] MEDS ORDERED: MORPHINE SULFATE INJ 4 MG/ML INJ 1ML IV PRN (17:00)
[2020-07-01] MEDS ORDERED: ONDANSETRON HCL INJ 2MG/ML 2ML 2 MG/ML VIAL IV PRN (17:00)
[2020-07-01] MEDS: SOD POLYSTYRENE SULFONATE SUSP 15 GM/60 ML BTL PR NR ×2 (17:12→17:16)
[2020-07-01 17:13] LABS: RBC,URINE 0-5 /HPF (0-5); WBC,URINE (MAN) 0-5 /HPF (0-5)
[2020-07-01 17:14] LABS: BACTERIA,URINE FEW /HPF
[2020-07-01] MEDS ORDERED: FUROSEMIDE20 MG PO (17:50)
[2020-07-01] MEDS ORDERED: SODIUM CHLORIDE 0.9% 50ML 50 ML ONE (18:31)
[2020-07-01] MEDS ORDERED: IOPAMIDOL 370 MG/ML 200 ML INFUS..BTL INJ ONE (18:31)
[2020-07-01] MEDS: SODIUM CHLORIDE 0.9% 1000ML 1,000 ML IV SCH (19:11)
[2020-07-01 20:30] VITALS: BP 101/68
[2020-07-01 20:36] VITALS: BP 101/68
[2020-07-01 22:30] VITALS: BP 101/68
[2020-07-02] VITALS (8 sets, daily range): BP systolic 117–139; BP diastolic 41–76
[2020-07-02] MEDS: METRONIDAZOLE 750MG/NS 150ML 150 ML IV STA (00:30)
[2020-07-02] MEDS ORDERED: METOPROLOL SUCC50 MG PO (00:40)
[2020-07-02] MEDS: SODIUM CHLORIDE 0.9% 1000ML 1,000 ML IV SCH ×4 (01:00→23:28)
[2020-07-02] MEDS: PIPERACILLIN/TAZO 4.5 GM 100 ML IV STA (01:20)
[2020-07-02 05:48] LABS: BASOPHILS % 0.3 % (0.0-1.0); EOSINOPHILS % 0.3 % (0.0-6.0); HEMATOCRIT 33.6 % (38.2-49.6); HEMOGLOBIN 11.2 g/dL (14.0-18.0); LYMPHOCYTES # (AUTO) 0.2 (1.0-3.2); LYMPHOCYTES % 2.2 % (18.0-39.1); MEAN CORPUSCULAR HEMOGLOBIN 31.8 pg (28-32); MEAN CORPUSCULAR HGB CONC 33.3 g/dL (31-35); MEAN CORPUSCULAR VOLUME 95.5 fL (81-99); MONOCYTES # (AUTO) 0.7 (0.2-0.8); MONOCYTES % 8.4 % (4.4-11.3); NEUTROPHILS # (AUTO) 6.9 (2.1-6.9); NEUTROPHILS % 88.3 % (38.7-80.0); PLATELET COUNT 125 x10e3/uL (140-360); RED BLOOD COUNT 3.52 x10e6/uL (4.3-5.7); RED CELL DISTRIBUTION WIDTH 14.6 % (11.7-14.4)
[2020-07-02 06:19] LABS: ANION GAP 8.3 mmol/L (8-16); BLOOD UREA NITROGEN 9 mg/dL (7-26); BUN/CREATININE RATIO 17 (6-25); CALCIUM 7.9 mg/dL (8.4-10.2); CHLORIDE 86 mmol/L (98-107); CREATININE, SERUM 0.52 mg/dL (0.72-1.25); EST GLOMERULAR FILTRATION RATE > 60 ML/MIN (60-); GLUCOSE 74 mg/dL (74-118); POTASSIUM 4.3 mmol/L (3.5-5.1); SODIUM 135 mmol/L (136-145)
[2020-07-02 06:24] LABS: CARBON DIOXIDE 45 mmol/L (22-29)
[2020-07-02] MEDS ORDERED: LATANOPROST2.5 ML OP (13:53)
[2020-07-02] MEDS: PIPERACILLIN/TAZOBAC 3.375 GM in SODIUM CHLORIDE 0.9% 50ML 50 ML IV SCH ×2 (14:03→21:55)
[2020-07-02] MEDS ORDERED: ACETAMINOPHEN 325 MG TAB PO PRN (14:30)
[2020-07-02] MEDS ORDERED: ALPRAZOLAM 0.25 MG TAB PO PRN (14:30)
[2020-07-02] MEDS ORDERED: ALBUTEROL SULF 0.083% NEB SOLN 3 ML NEB INH PRN (14:30)
[2020-07-02] MEDS ORDERED: IBUPROFEN 200 MG TAB PO PRN (14:30)
[2020-07-02] MEDS ORDERED: LACTULOSE SYRUP 20 GM/30 ML UDC PO PRN (14:45)
[2020-07-02] MEDS: DIGOXIN 0.125 MG TAB PO SCH (19:41)
[2020-07-02] MEDS: LATANOPROST(OPTH) 2.5 ML BTL OP SCH (21:35)
[2020-07-02] MEDS: METOPROLOL SUCCINATE 50 MG TAB XL PO SCH (21:42)
[2020-07-02] MEDS ORDERED: PIPERACILLIN/TAZO 4.5 GM 100 ML IV STA (23:50)
[2020-07-03] VITALS (17 sets, daily range): BP systolic 98–132; BP diastolic 44–54
[2020-07-03] MEDS ORDERED: PIPER-TAZ 3.375 GM 50 ML IV SCH
[2020-07-03] MEDS ORDERED: RIFAXIMIN 550 MG TABLET PO STA (00:05)
[2020-07-03] MEDS: METRONIDAZOLE 750MG/NS 150ML 150 ML IV STA (00:15)
[2020-07-03 01:04] LABS: BASOPHILS % 0.3 % (0.0-1.0); EOSINOPHILS % 0.1 % (0.0-6.0); HEMATOCRIT 39.4 % (38.2-49.6); HEMOGLOBIN 12.6 g/dL (14.0-18.0); LYMPHOCYTES # (AUTO) 0.2 (1.0-3.2); LYMPHOCYTES % 1.4 % (18.0-39.1); MEAN CORPUSCULAR HEMOGLOBIN 31.9 pg (28-32); MEAN CORPUSCULAR VOLUME 99.7 fL (81-99); MONOCYTES # (AUTO) 0.7 (0.2-0.8); MONOCYTES % 6.6 % (4.4-11.3); NEUTROPHILS # (AUTO) 9.5 (2.1-6.9); NEUTROPHILS % 91.1 % (38.7-80.0); PLATELET COUNT 147 x10e3/uL (140-360); RED BLOOD COUNT 3.95 x10e6/uL (4.3-5.7); RED CELL DISTRIBUTION WIDTH 15.1 % (11.7-14.4)
[2020-07-03 01:20] LABS: ALANINE AMINOTRANSFERASE 395 IU/L (0-55); ALBUMIN 2.5 g/dL (3.5-5.0); ALBUMIN/GLOBULIN RATIO 0.8 (0.8-2.0); ALKALINE PHOSPHATASE 762 IU/L (40-150); ANION GAP 10.6 mmol/L (8-16); BLOOD UREA NITROGEN 10 mg/dL (7-26); BUN/CREATININE RATIO 17 (6-25); CALCIUM 8.5 mg/dL (8.4-10.2); CHLORIDE 87 mmol/L (98-107); CREATININE, SERUM 0.59 mg/dL (0.72-1.25); EST GLOMERULAR FILTRATION RATE > 60 ML/MIN (60-); GLUCOSE 102 mg/dL (74-118); POTASSIUM 4.6 mmol/L (3.5-5.1); SODIUM 137 mmol/L (136-145)
[2020-07-03] MEDS: PIPERACILLIN/TAZO 4.5 GM 100 ML IV STA (01:20)
[2020-07-03 01:36] LABS: CARBON DIOXIDE 44 mmol/L (22-29)
[2020-07-03] MEDS: LEVOTHYROXINE SODIUM 25 MCG TABLET PO SCH (03:40)
[2020-07-03] MEDS: LEVOTHYROXINE SODIUM 112 MCG TAB PO SCH (03:41)
[2020-07-03] MEDS: METRONIDAZOLE 500MG/NS 100ML 100 ML IV SCH ×5 (05:37→22:52)
[2020-07-03] MEDS: PIPERACILLIN/TAZOBAC 3.375 GM in SODIUM CHLORIDE 0.9% 50ML 50 ML IV SCH ×5 (06:00→15:36)
[2020-07-03] MEDS ORDERED: INDOMETHACIN 50 MG SUPP.RECT RC ONE (06:58)
[2020-07-03] MEDS ORDERED: IOPAMIDOL 300MG/ML 50ML INFUS..BTL IV ONE (06:58)
[2020-07-03] MEDS ORDERED: FUROSEMIDE 20 MG TAB PO SCH (07:30)
[2020-07-03] MEDS ORDERED: NALOXONE HCL INJ 0.4 MG/ML AMP ONE (08:27)
[2020-07-03] MEDS ORDERED: NALOXONE HCL INJ 0.4 MG/ML AMP IV PRN (08:30)
[2020-07-03] MEDS ORDERED: ALBUTEROL/IPRATROPIUM 3 ML NEB ONE (08:33)
[2020-07-03] MEDS: TAMSULOSIN HCL 0.4 MG CAP PO SCH (09:00)
[2020-07-03] MEDS ORDERED: DIGOXIN 0.125 MG TAB PO SCH (09:00)
[2020-07-03] MEDS ORDERED: METOPROLOL SUCCINATE 50 MG TAB XL PO SCH (09:00)
[2020-07-03] MEDS ORDERED: VASOPRESSIN 60 UNIT in DEXTROSE 5% 50ML 57 ML IV PRN (11:45)
[2020-07-03] MEDS ORDERED: PROPOFOL IV EMULSION 10 MG/ML 20 ML VIAL ONE (12:51)
[2020-07-03] MEDS ORDERED: GLUCAGON FOR INJ 1 MG VIAL ONE (12:51)
[2020-07-03] MEDS ORDERED: LIDOCAINE HCL 2% LOCAL INJ 5 ML SDV VIAL INJ ONE (12:51)
[2020-07-03 12:58] LABS: ABG HCO3 39 mmol/L (22-26); ABG PCO2 30 mmHg (35-45); ABG PH 7.71 (7.35-7.45); ABG PO2 194 mmHg (80-105); ABG TCO2 40
[2020-07-03] MEDS ORDERED: FENTANYL CITRATE/PF 100MCG/2 ML INJ ONE (13:22)
[2020-07-03] MEDS: SODIUM CHLORIDE 0.9% 1000ML 1,000 ML IV SCH ×2 (13:25→15:35)
[2020-07-03] MEDS: ASPIRIN 81 MG CHEW TAB PO SCH (15:34)
[2020-07-03] MEDS: FINASTERIDE 5 MG TAB PO SCH (15:35)
[2020-07-03] MEDS: MULTIVITAMINS/MINERALS TAB PO SCH (15:35)
[2020-07-03] MEDS: LACTULOSE SYRUP 20 GM/30 ML UDC PO SCH ×2 (15:35→20:37)
[2020-07-03] MEDS: DIGOXIN 0.125 MG TAB PO SCH (15:35)
[2020-07-03] MEDS: RIFAXIMIN 550 MG TABLET PO SCH (15:35)
[2020-07-03] MEDS: METOPROLOL SUCCINATE 50 MG TAB XL PO SCH (15:35)
[2020-07-03] MEDS: PROPOFOL IV EMULSION 10MG/ML 100 ML IV PRN (15:36)
[2020-07-03 17:04] LABS: ABG HCO3 45 mmol/L (22-26); ABG PCO2 53 mmHg (35-45); ABG PH 7.54 (7.35-7.45); ABG PO2 189 mmHg (80-105)
[2020-07-03 17:05] LABS: ABG TCO2 47
[2020-07-03 18:45] LABS: ALANINE AMINOTRANSFERASE 356 IU/L (0-55); ALBUMIN/GLOBULIN RATIO 0.9 (0.8-2.0); ALKALINE PHOSPHATASE 582 IU/L (40-150); ANION GAP 10.4 mmol/L (8-16); BLOOD UREA NITROGEN 13 mg/dL (7-26); BUN/CREATININE RATIO 22 (6-25); CALCIUM 7.8 mg/dL (8.4-10.2); CARBON DIOXIDE 39 mmol/L (22-29); CHLORIDE 92 mmol/L (98-107); CREATININE, SERUM 0.58 mg/dL (0.72-1.25); EST GLOMERULAR FILTRATION RATE > 60 ML/MIN (60-); GLUCOSE 140 mg/dL (74-118); POTASSIUM 3.4 mmol/L (3.5-5.1); SODIUM 138 mmol/L (136-145)
[2020-07-03] MEDS: ACETAZOLAMIDE 250 MG TAB PO SCH (18:57)
[2020-07-03 20:00] LABS: AMMONIA > 123 UG/DL (31-123)
[2020-07-03] MEDS: LATANOPROST(OPTH) 2.5 ML BTL OP SCH (20:31)
[2020-07-03] MEDS ORDERED: POTASSIUM CHLORIDE 20 MEQ TAB CR PO STA (23:46)
[2020-07-04] VITALS (21 sets, daily range): BP systolic 94–120; BP diastolic 34–60
[2020-07-04] MEDS ORDERED: POTASSIUM CHLORIDE 20 MEQ TAB CR PO ONE (00:04)
[2020-07-04] MEDS: PIPERACILLIN/TAZOBAC 3.375 GM in SODIUM CHLORIDE 0.9% 50ML 50 ML IV SCH ×4 (00:46→16:35)
[2020-07-04] MEDS: SODIUM CHLORIDE 0.9% 1000ML 1,000 ML IV SCH ×3 (00:57→17:00)
[2020-07-04 05:11] LABS: BASOPHILS % 0.2 % (0.0-1.0); EOSINOPHILS % 0.2 % (0.0-6.0); HEMATOCRIT 28.6 % (38.2-49.6); LYMPHOCYTES # (AUTO) 0.2 (1.0-3.2); LYMPHOCYTES % 2.1 % (18.0-39.1); MEAN CORPUSCULAR HEMOGLOBIN 32.1 pg (28-32); MONOCYTES # (AUTO) 0.6 (0.2-0.8); MONOCYTES % 7.3 % (4.4-11.3); NEUTROPHILS # (AUTO) 7.6 (2.1-6.9); NEUTROPHILS % 89.6 % (38.7-80.0); PLATELET COUNT 123 x10e3/uL (140-360); RED BLOOD COUNT 3.12 x10e6/uL (4.3-5.7); RED CELL DISTRIBUTION WIDTH 15.9 % (11.7-14.4)
[2020-07-04 05:12] LABS: MEAN CORPUSCULAR VOLUME 91.7 fL (81-99)
[2020-07-04 05:23] LABS: INR 1.37; PROTHROMBIN TIME 17.5 seconds (11.9-14.5)
[2020-07-04] MEDS: METRONIDAZOLE 500MG/NS 100ML 100 ML IV SCH ×3 (05:58→16:35)
[2020-07-04] MEDS: LEVOTHYROXINE SODIUM 112 MCG TAB PO SCH (06:00)
[2020-07-04] MEDS: LEVOTHYROXINE SODIUM 25 MCG TABLET PO SCH (06:00)
[2020-07-04 06:13] LABS: ALANINE AMINOTRANSFERASE 396 IU/L (0-55); ALBUMIN 1.9 g/dL (3.5-5.0); ALBUMIN/GLOBULIN RATIO 0.9 (0.8-2.0); ALKALINE PHOSPHATASE 584 IU/L (40-150); ANION GAP 9.4 mmol/L (8-16); BLOOD UREA NITROGEN 13 mg/dL (7-26); BUN/CREATININE RATIO 20 (6-25); CALCIUM 7.6 mg/dL (8.4-10.2); CARBON DIOXIDE 36 mmol/L (22-29); CHLORIDE 96 mmol/L (98-107); CREATININE, SERUM 0.64 mg/dL (0.72-1.25); EST GLOMERULAR FILTRATION RATE > 60 ML/MIN (60-); GLUCOSE 103 mg/dL (74-118); SODIUM 139 mmol/L (136-145)
[2020-07-04 06:19] LABS: POTASSIUM 2.4 mmol/L (3.5-5.1)
[2020-07-04] MEDS ORDERED: POTASSIUM CHLORIDE 20 MEQ TAB CR PO STA (06:48)
[2020-07-04] MEDS ORDERED: POTASSIUM CHLORIDE 20MEQ/100ML 200 ML IV ONE (07:00)
[2020-07-04] MEDS ORDERED: POTASSIUM CHLORIDE 20MEQ/100ML 200 ML ONE (07:01)
[2020-07-04] MEDS ORDERED: KCL 20 MEQ PACKET/ ORAL SOLN ONE (07:01)
[2020-07-04] MEDS: TAMSULOSIN HCL 0.4 MG CAP PO SCH (08:44)
[2020-07-04 09:57] LABS: ABG HCO3 37 mmol/L (22-26); ABG PCO2 49 mmHg (35-45); ABG PH 7.49 (7.35-7.45); ABG PO2 212 mmHg (80-105); ABG TCO2 39
[2020-07-04 10:02] LABS: ABG PCO2 > 130 mmHg (35-45); ABG PH 7.71 (7.35-7.45); ABG PO2 219 mmHg (80-105)
[2020-07-04] MEDS: LACTULOSE SYRUP 20 GM/30 ML UDC PO SCH ×2 (14:05→21:00)
[2020-07-04] MEDS: ASPIRIN 81 MG CHEW TAB PO SCH (14:05)
[2020-07-04] MEDS: ACETAZOLAMIDE 250 MG TAB PO SCH ×2 (14:05→21:00)
[2020-07-04] MEDS: MULTIVITAMINS/MINERALS TAB PO SCH (14:06)
[2020-07-04] MEDS: DIGOXIN 0.125 MG TAB PO SCH (14:06)
[2020-07-04] MEDS: RIFAXIMIN 550 MG TABLET PO SCH ×2 (14:06→16:35)
[2020-07-04] MEDS: METOPROLOL SUCCINATE 50 MG TAB XL PO SCH (14:06)
[2020-07-04] MEDS: FINASTERIDE 5 MG TAB PO SCH (14:06)
[2020-07-04] MEDS ORDERED: KCL 20 MEQ PACKET/ ORAL SOLN NG ONE (17:30)
[2020-07-04] MEDS ORDERED: POTASSIUM CHLORIDE 20MEQ/100ML 100 ML IV ONE (17:30)
[2020-07-04] MEDS: LATANOPROST(OPTH) 2.5 ML BTL OP SCH (21:30)
[2020-07-04] MEDS ORDERED: ACETAZOLAMIDE 250 MG TAB ONE (22:21)
[2020-07-05] VITALS (18 sets, daily range): BP systolic 92–113; BP diastolic 41–57
[2020-07-05 04:54] LABS: BASOPHILS % 0.4 % (0.0-1.0); EOSINOPHILS # (AUTO) 0.1 (0.0-0.4); EOSINOPHILS % 0.9 % (0.0-6.0); HEMATOCRIT 30.1 % (38.2-49.6); HEMOGLOBIN 10.3 g/dL (14.0-18.0); LYMPHOCYTES # (AUTO) 0.2 (1.0-3.2); LYMPHOCYTES % 1.9 % (18.0-39.1); MEAN CORPUSCULAR HEMOGLOBIN 32.1 pg (28-32); MEAN CORPUSCULAR HGB CONC 34.2 g/dL (31-35); MEAN CORPUSCULAR VOLUME 93.8 fL (81-99); MONOCYTES # (AUTO) 0.6 (0.2-0.8); MONOCYTES % 5.9 % (4.4-11.3); NEUTROPHILS # (AUTO) 8.7 (2.1-6.9); NEUTROPHILS % 90.2 % (38.7-80.0); PLATELET COUNT 125 x10e3/uL (140-360); RED BLOOD COUNT 3.21 x10e6/uL (4.3-5.7); RED CELL DISTRIBUTION WIDTH 16.1 % (11.7-14.4)
[2020-07-05] MEDS: SODIUM CHLORIDE 0.9% 1000ML 1,000 ML IV SCH ×3 (05:00→17:00)
[2020-07-05 05:17] LABS: ALANINE AMINOTRANSFERASE 443 IU/L (0-55); ALBUMIN 1.8 g/dL (3.5-5.0); ALBUMIN/GLOBULIN RATIO 0.8 (0.8-2.0); ALKALINE PHOSPHATASE 793 IU/L (40-150); ANION GAP 10.1 mmol/L (8-16); BLOOD UREA NITROGEN 12 mg/dL (7-26); BUN/CREATININE RATIO 19 (6-25); CALCIUM 7.7 mg/dL (8.4-10.2); CARBON DIOXIDE 26 mmol/L (22-29); CHLORIDE 107 mmol/L (98-107); CREATININE, SERUM 0.64 mg/dL (0.72-1.25); EST GLOMERULAR FILTRATION RATE > 60 ML/MIN (60-); GLUCOSE 80 mg/dL (74-118); POTASSIUM 3.1 mmol/L (3.5-5.1); SODIUM 140 mmol/L (136-145)
[2020-07-05] MEDS: PIPERACILLIN/TAZOBAC 3.375 GM in SODIUM CHLORIDE 0.9% 50ML 50 ML IV SCH ×5 (06:00→19:01)
[2020-07-05] MEDS: METRONIDAZOLE 500MG/NS 100ML 100 ML IV SCH ×3 (06:00→11:46)
[2020-07-05] MEDS: LEVOTHYROXINE SODIUM 112 MCG TAB PO SCH (06:00)
[2020-07-05] MEDS: LEVOTHYROXINE SODIUM 25 MCG TABLET PO SCH (06:00)
[2020-07-05] MEDS: PROPOFOL IV EMULSION 10MG/ML 100 ML IV PRN (07:08)
[2020-07-05] MEDS ORDERED: LIDOCAINE HCL 1% LOCAL INJ 20 ML VIAL ONE (09:45)
[2020-07-05] MEDS ORDERED: IOPAMIDOL 300MG/ML 100 ML INFUS..BTL IV ONE (09:45)
[2020-07-05] MEDS ORDERED: SODIUM CHLORIDE 0.9% 250ML 250 ML ONE (09:45)
[2020-07-05] MEDS ORDERED: POTASSIUM CHLORIDE 20 MEQ TAB CR PO ONE (11:16)
[2020-07-05] MEDS ORDERED: POTASSIUM CHLORIDE 10MEQ/100ML 400 ML IV ONE (11:30)
[2020-07-05] MEDS ORDERED: CALCIUM GLUCONATE 10% INJ 4.65 MEQ in SODIUM CHLORIDE 0.9% 50ML 50 ML IV ONE (11:30)
[2020-07-05] MEDS: ASPIRIN 81 MG CHEW TAB PO SCH (11:45)
[2020-07-05] MEDS: LACTULOSE SYRUP 20 GM/30 ML UDC PO SCH ×2 (11:45→21:12)
[2020-07-05] MEDS: METOPROLOL SUCCINATE 50 MG TAB XL PO SCH (11:45)
[2020-07-05] MEDS: MULTIVITAMINS/MINERALS TAB PO SCH (11:45)
[2020-07-05] MEDS: FINASTERIDE 5 MG TAB PO SCH (11:45)
[2020-07-05] MEDS: DIGOXIN 0.125 MG TAB PO SCH (11:45)
[2020-07-05] MEDS ORDERED: FENTANYL 2000MCG/NS 250 250 ML IV PRN (11:45)
[2020-07-05] MEDS: TAMSULOSIN HCL 0.4 MG CAP PO SCH (11:45)
[2020-07-05] MEDS: RIFAXIMIN 550 MG TABLET PO SCH ×2 (11:46→19:01)
[2020-07-05] MEDS ORDERED: KCL 20 MEQ PACKET/ ORAL SOLN PO ONE (12:15)
[2020-07-05] MEDS: POTASSIUM CHLORIDE 10MEQ/100ML 100 ML IV SCH ×4 (14:30→17:30)
[2020-07-05] MEDS: LATANOPROST(OPTH) 2.5 ML BTL OP SCH (21:12)
[2020-07-06] VITALS (17 sets, daily range): BP systolic 84–122; BP diastolic 37–66
[2020-07-06] MEDS: SODIUM CHLORIDE 0.9% 1000ML 1,000 ML IV SCH ×3 (00:30→15:09)
[2020-07-06] MEDS: PROPOFOL IV EMULSION 10MG/ML 100 ML IV PRN (05:00)
[2020-07-06] MEDS: LEVOTHYROXINE SODIUM 112 MCG TAB PO SCH (06:00)
[2020-07-06] MEDS: PIPERACILLIN/TAZOBAC 3.375 GM in SODIUM CHLORIDE 0.9% 50ML 50 ML IV SCH ×6 (06:00→23:39)
[2020-07-06] MEDS: LEVOTHYROXINE SODIUM 25 MCG TABLET PO SCH (06:00)
[2020-07-06 06:12] LABS: BASOPHILS % 0.4 % (0.0-1.0); EOSINOPHILS # (AUTO) 0.2 (0.0-0.4); EOSINOPHILS % 1.7 % (0.0-6.0); HEMATOCRIT 30.2 % (38.2-49.6); HEMOGLOBIN 10.4 g/dL (14.0-18.0); LYMPHOCYTES # (AUTO) 0.2 (1.0-3.2); LYMPHOCYTES % 1.6 % (18.0-39.1); MEAN CORPUSCULAR HGB CONC 34.4 g/dL (31-35); MEAN CORPUSCULAR VOLUME 92.9 fL (81-99); MONOCYTES # (AUTO) 0.5 (0.2-0.8); MONOCYTES % 5.6 % (4.4-11.3); NEUTROPHILS # (AUTO) 8.5 (2.1-6.9); PLATELET COUNT 123 x10e3/uL (140-360); RED BLOOD COUNT 3.25 x10e6/uL (4.3-5.7); RED CELL DISTRIBUTION WIDTH 16.8 % (11.7-14.4)
[2020-07-06 06:37] LABS: ALBUMIN 1.7 g/dL (3.5-5.0); BILIRUBIN,DIRECT 11.1 mg/dL (0.0-0.5)
[2020-07-06 07:56] LABS: ANION GAP 9.7 mmol/L (8-16); BLOOD UREA NITROGEN 13 mg/dL (7-26); BUN/CREATININE RATIO 19 (6-25); CALCIUM 7.7 mg/dL (8.4-10.2); CARBON DIOXIDE 22 mmol/L (22-29); CHLORIDE 114 mmol/L (98-107); CREATININE, SERUM 0.67 mg/dL (0.72-1.25); EST GLOMERULAR FILTRATION RATE > 60 ML/MIN (60-); GLUCOSE 85 mg/dL (74-118); POTASSIUM 3.7 mmol/L (3.5-5.1); SODIUM 142 mmol/L (136-145)
[2020-07-06] MEDS: METOPROLOL SUCCINATE 50 MG TAB XL PO SCH (08:45)
[2020-07-06] MEDS: LACTULOSE SYRUP 20 GM/30 ML UDC PO SCH ×2 (08:45→20:25)
[2020-07-06] MEDS: DIGOXIN 0.125 MG TAB PO SCH (08:45)
[2020-07-06] MEDS: FINASTERIDE 5 MG TAB PO SCH (08:45)
[2020-07-06] MEDS: TAMSULOSIN HCL 0.4 MG CAP PO SCH (08:45)
[2020-07-06] MEDS: MULTIVITAMINS/MINERALS TAB PO SCH (08:45)
[2020-07-06] MEDS: ASPIRIN 81 MG CHEW TAB PO SCH (08:45)
[2020-07-06] MEDS: RIFAXIMIN 550 MG TABLET PO SCH ×2 (08:45→16:23)
[2020-07-06 09:03] LABS: EOSINOPHILS % (MANUAL) 1 % (0-7); LYMPHOCYTES % (MANUAL) 1 % (19-48); MONOCYTES % (MANUAL) 4 % (3.4-9.0); NEUTROPHILS % (MANUAL) 94 % (40-74); TARGET CELLS MODERATE; TEAR DROP CELLS FEW
[2020-07-06 09:06] LABS: PLATELET ESTIMATE SLIGHTLY DECREASED; PLATELET MORPHOLOGY COMMENT NORMAL; RBC MORPHOLOGY COMMENT ABNORMAL
[2020-07-06] MEDS ORDERED: FUROSEMIDE INJ 10 MG/ML 4 ML VIAL IV ONE (15:45)
[2020-07-06] MEDS: DEXMEDETOMIDINE 200MCG/NS 50ML 50 ML IV SCH ×2 (16:23→22:50)
[2020-07-06] MEDS: LATANOPROST(OPTH) 2.5 ML BTL OP SCH (20:25)
[2020-07-07] VITALS (15 sets, daily range): BP systolic 81–142; BP diastolic 32–53
[2020-07-07 04:36] LABS: BASOPHILS % 0.3 % (0.0-1.0); EOSINOPHILS # (AUTO) 0.1 (0.0-0.4); EOSINOPHILS % 1.4 % (0.0-6.0); HEMATOCRIT 28.9 % (38.2-49.6); LYMPHOCYTES # (AUTO) 0.2 (1.0-3.2); LYMPHOCYTES % 2.6 % (18.0-39.1); MEAN CORPUSCULAR HEMOGLOBIN 31.5 pg (28-32); MEAN CORPUSCULAR HGB CONC 34.6 g/dL (31-35); MEAN CORPUSCULAR VOLUME 91.2 fL (81-99); MONOCYTES # (AUTO) 0.4 (0.2-0.8); MONOCYTES % 4.8 % (4.4-11.3); NEUTROPHILS # (AUTO) 7.9 (2.1-6.9); NEUTROPHILS % 89.7 % (38.7-80.0); PLATELET COUNT 128 x10e3/uL (140-360); RED BLOOD COUNT 3.17 x10e6/uL (4.3-5.7); RED CELL DISTRIBUTION WIDTH 16.4 % (11.7-14.4)
[2020-07-07 05:00] LABS: ALANINE AMINOTRANSFERASE 278 IU/L (0-55); ALBUMIN 1.7 g/dL (3.5-5.0); ALBUMIN/GLOBULIN RATIO 0.7 (0.8-2.0); ALKALINE PHOSPHATASE 777 IU/L (40-150); BLOOD UREA NITROGEN 18 mg/dL (7-26); BUN/CREATININE RATIO 28 (6-25); CALCIUM 7.5 mg/dL (8.4-10.2); CARBON DIOXIDE 23 mmol/L (22-29); CHLORIDE 112 mmol/L (98-107); CREATININE, SERUM 0.65 mg/dL (0.72-1.25); EST GLOMERULAR FILTRATION RATE > 60 ML/MIN (60-); GLUCOSE 104 mg/dL (74-118); SODIUM 143 mmol/L (136-145)
[2020-07-07] MEDS: LEVOTHYROXINE SODIUM 25 MCG TABLET PO SCH (06:00)
[2020-07-07] MEDS: LEVOTHYROXINE SODIUM 112 MCG TAB PO SCH (06:00)
[2020-07-07] MEDS: PIPERACILLIN/TAZOBAC 3.375 GM in SODIUM CHLORIDE 0.9% 50ML 50 ML IV SCH ×4 (06:00→23:44)
[2020-07-07] MEDS: FINASTERIDE 5 MG TAB PO SCH (08:13)
[2020-07-07] MEDS: TAMSULOSIN HCL 0.4 MG CAP PO SCH (08:13)
[2020-07-07] MEDS: LACTULOSE SYRUP 20 GM/30 ML UDC PO SCH ×2 (08:13→21:16)
[2020-07-07] MEDS: ASPIRIN 81 MG CHEW TAB PO SCH (08:13)
[2020-07-07] MEDS: MULTIVITAMINS/MINERALS TAB PO SCH (08:13)
[2020-07-07] MEDS: RIFAXIMIN 550 MG TABLET PO SCH ×2 (08:13→16:50)
[2020-07-07] MEDS ORDERED: POTASSIUM CHLORIDE 20MEQ/100ML 100 ML IV ONE (09:30)
[2020-07-07] MEDS: CENTRAL TPN FORMULA 1 BAG IV SCH (19:36)
[2020-07-07] MEDS: LATANOPROST(OPTH) 2.5 ML BTL OP SCH (21:16)
[2020-07-08] VITALS (28 sets, daily range): BP systolic 97–145; BP diastolic 41–94
[2020-07-08 04:44] LABS: BASOPHILS % 0.3 % (0.0-1.0); EOSINOPHILS % 0.3 % (0.0-6.0); HEMATOCRIT 28.3 % (38.2-49.6); HEMOGLOBIN 10.1 g/dL (14.0-18.0); LYMPHOCYTES # (AUTO) 0.3 (1.0-3.2); LYMPHOCYTES % 2.4 % (18.0-39.1); MEAN CORPUSCULAR HEMOGLOBIN 32.1 pg (28-32); MEAN CORPUSCULAR HGB CONC 35.7 g/dL (31-35); MEAN CORPUSCULAR VOLUME 89.8 fL (81-99); MONOCYTES # (AUTO) 0.7 (0.2-0.8); MONOCYTES % 5.6 % (4.4-11.3); NEUTROPHILS # (AUTO) 10.4 (2.1-6.9); NEUTROPHILS % 90.2 % (38.7-80.0); PLATELET COUNT 175 x10e3/uL (140-360); RED BLOOD COUNT 3.15 x10e6/uL (4.3-5.7); RED CELL DISTRIBUTION WIDTH 16.1 % (11.7-14.4)
[2020-07-08 05:11] LABS: ALANINE AMINOTRANSFERASE 224 IU/L (0-55); ALBUMIN/GLOBULIN RATIO 0.7 (0.8-2.0); ALKALINE PHOSPHATASE 648 IU/L (40-150); ANION GAP 8.1 mmol/L (8-16); BLOOD UREA NITROGEN 22 mg/dL (7-26); BUN/CREATININE RATIO 35 (6-25); CALCIUM 7.8 mg/dL (8.4-10.2); CARBON DIOXIDE 28 mmol/L (22-29); CHLORIDE 114 mmol/L (98-107); CREATININE, SERUM 0.62 mg/dL (0.72-1.25); EST GLOMERULAR FILTRATION RATE > 60 ML/MIN (60-); GLUCOSE 192 mg/dL (74-118); POTASSIUM 3.1 mmol/L (3.5-5.1); SODIUM 147 mmol/L (136-145)
[2020-07-08] MEDS: PIPERACILLIN/TAZOBAC 3.375 GM in SODIUM CHLORIDE 0.9% 50ML 50 ML IV SCH ×3 (05:55→17:01)
[2020-07-08] MEDS: LEVOTHYROXINE SODIUM 112 MCG TAB PO SCH (05:55)
[2020-07-08] MEDS: LEVOTHYROXINE SODIUM 25 MCG TABLET PO SCH (05:55)
[2020-07-08] MEDS: TAMSULOSIN HCL 0.4 MG CAP PO SCH (08:03)
[2020-07-08] MEDS: ASPIRIN 81 MG CHEW TAB PO SCH (08:03)
[2020-07-08] MEDS: MULTIVITAMINS/MINERALS TAB PO SCH (08:03)
[2020-07-08] MEDS: RIFAXIMIN 550 MG TABLET PO SCH ×2 (08:03→16:20)
[2020-07-08] MEDS: LACTULOSE SYRUP 20 GM/30 ML UDC PO SCH ×2 (08:03→20:33)
[2020-07-08] MEDS: FINASTERIDE 5 MG TAB PO SCH (08:03)
[2020-07-08] MEDS ORDERED: FUROSEMIDE INJ 10 MG/ML 2 ML VIAL IV ONE (10:45)
[2020-07-08 10:49] LABS: BILIRUBIN,DIRECT 7.7 mg/dL (0.0-0.5)
[2020-07-08] MEDS ORDERED: KCL 20 MEQ PACKET/ ORAL SOLN NG ONE (12:15)
[2020-07-08] MEDS ORDERED: ALBUMIN 25% 25GM 100ML 0.25 GM/ML BTL IV ONE (12:15)
[2020-07-08 16:02] LABS: ABG HCO3 31 mmol/L (22-26); ABG PCO2 63 mmHg (35-45); ABG PO2 71 mmHg (80-105); ABG TCO2 33
[2020-07-08] MEDS: CENTRAL TPN FORMULA 1 BAG IV SCH (20:03)
[2020-07-08] MEDS: LATANOPROST(OPTH) 2.5 ML BTL OP SCH (20:33)
[2020-07-09] VITALS (23 sets, daily range): BP systolic 94–126; BP diastolic 35–57
[2020-07-09] MEDS: PIPERACILLIN/TAZOBAC 3.375 GM in SODIUM CHLORIDE 0.9% 50ML 50 ML IV SCH ×4 (01:00→17:04)
[2020-07-09 05:59] LABS: ALBUMIN 2.3 g/dL (3.5-5.0); BILIRUBIN,DIRECT 6.3 mg/dL (0.0-0.5)
[2020-07-09] MEDS: LEVOTHYROXINE SODIUM 25 MCG TABLET PO SCH (06:00)
[2020-07-09] MEDS: LEVOTHYROXINE SODIUM 112 MCG TAB PO SCH (06:00)
[2020-07-09 06:59] LABS: BASOPHILS # (AUTO) 0.1 (0.0-0.1); BASOPHILS % 0.3 % (0.0-1.0); HEMATOCRIT 28.4 % (38.2-49.6); HEMOGLOBIN 9.2 g/dL (14.0-18.0); LYMPHOCYTES # (AUTO) 0.2 (1.0-3.2); LYMPHOCYTES % 1.2 % (18.0-39.1); MEAN CORPUSCULAR HEMOGLOBIN 31.9 pg (28-32); MEAN CORPUSCULAR HGB CONC 32.4 g/dL (31-35); MEAN CORPUSCULAR VOLUME 98.6 fL (81-99); MONOCYTES # (AUTO) 0.9 (0.2-0.8); MONOCYTES % 6.1 % (4.4-11.3); NEUTROPHILS # (AUTO) 13.6 (2.1-6.9); NEUTROPHILS % 91.5 % (38.7-80.0); PLATELET COUNT 172 x10e3/uL (140-360); RED BLOOD COUNT 2.88 x10e6/uL (4.3-5.7); RED CELL DISTRIBUTION WIDTH 17.1 % (11.7-14.4)
[2020-07-09 07:07] LABS: ANION GAP 12.1 mmol/L (8-16); BLOOD UREA NITROGEN 19 mg/dL (7-26); BUN/CREATININE RATIO 35 (6-25); CALCIUM 7.8 mg/dL (8.4-10.2); CARBON DIOXIDE 35 mmol/L (22-29); CHLORIDE 111 mmol/L (98-107); CREATININE, SERUM 0.55 mg/dL (0.72-1.25); EST GLOMERULAR FILTRATION RATE > 60 ML/MIN (60-); GLUCOSE 183 mg/dL (74-118); POTASSIUM 4.1 mmol/L (3.5-5.1); SODIUM 154 mmol/L (136-145)
[2020-07-09] MEDS: LACTULOSE SYRUP 20 GM/30 ML UDC PO SCH ×2 (08:08→21:00)
[2020-07-09] MEDS: RIFAXIMIN 550 MG TABLET PO SCH ×2 (08:08→17:04)
[2020-07-09] MEDS: TAMSULOSIN HCL 0.4 MG CAP PO SCH (08:08)
[2020-07-09] MEDS: MULTIVITAMINS/MINERALS TAB PO SCH (08:08)
[2020-07-09] MEDS: FINASTERIDE 5 MG TAB PO SCH (08:08)
[2020-07-09] MEDS: ASPIRIN 81 MG CHEW TAB PO SCH (08:08)
[2020-07-09] MEDS: ARTIFICIAL TEARS (OPTH) 15 ML BTL OP SCH ×2 (10:13→16:55)
[2020-07-09] MEDS: CENTRAL TPN FORMULA 1 BAG IV SCH (20:19)
[2020-07-09] MEDS: LATANOPROST(OPTH) 2.5 ML BTL OP SCH (21:00)
[2020-07-10] VITALS (14 sets, daily range): BP systolic 43–106; BP diastolic 24–43
[2020-07-10] MEDS: PIPERACILLIN/TAZOBAC 3.375 GM in SODIUM CHLORIDE 0.9% 50ML 50 ML IV SCH (00:03)
[2020-07-10 05:47] LABS: BASOPHILS # (AUTO) 0.1 (0.0-0.1); BASOPHILS % 0.4 % (0.0-1.0); EOSINOPHILS % 0.2 % (0.0-6.0); HEMATOCRIT 31.6 % (38.2-49.6); HEMOGLOBIN 9.4 g/dL (14.0-18.0); LYMPHOCYTES # (AUTO) 0.3 (1.0-3.2); MEAN CORPUSCULAR HEMOGLOBIN 31.5 pg (28-32); MEAN CORPUSCULAR HGB CONC 29.7 g/dL (31-35); MONOCYTES % 7.8 % (4.4-11.3); NEUTROPHILS # (AUTO) 11.7 (2.1-6.9); NEUTROPHILS % 88.1 % (38.7-80.0); PLATELET COUNT 158 x10e3/uL (140-360); RED BLOOD COUNT 2.98 x10e6/uL (4.3-5.7); RED CELL DISTRIBUTION WIDTH 17.2 % (11.7-14.4)
[2020-07-10 06:08] LABS: ANION GAP 9.1 mmol/L (8-16); BLOOD UREA NITROGEN 38 mg/dL (7-26); BUN/CREATININE RATIO 39 (6-25); CALCIUM 8.7 mg/dL (8.4-10.2); CHLORIDE 110 mmol/L (98-107); CREATININE, SERUM 0.98 mg/dL (0.72-1.25); EST GLOMERULAR FILTRATION RATE > 60 ML/MIN (60-); GLUCOSE 132 mg/dL (74-118); POTASSIUM 5.1 mmol/L (3.5-5.1); SODIUM 155 mmol/L (136-145)
[2020-07-10 06:11] LABS: CARBON DIOXIDE 41 mmol/L (22-29)
[2020-07-10 06:30] LABS: ALBUMIN 2.2 g/dL (3.5-5.0); BILIRUBIN,DIRECT 5.4 mg/dL (0.0-0.5)
[2020-07-10] MEDS: ASPIRIN 81 MG CHEW TAB PO SCH (07:53)
[2020-07-10] MEDS: ARTIFICIAL TEARS (OPTH) 15 ML BTL OP SCH (07:53)
[2020-07-10] MEDS: TAMSULOSIN HCL 0.4 MG CAP PO SCH (07:53)
[2020-07-10] MEDS: MULTIVITAMINS/MINERALS TAB PO SCH (07:54)
[2020-07-10] MEDS: LACTULOSE SYRUP 20 GM/30 ML UDC PO SCH (07:54)
[2020-07-10] MEDS: FINASTERIDE 5 MG TAB PO SCH (07:54)
[2020-07-10] MEDS: RIFAXIMIN 550 MG TABLET PO SCH (09:00)
[2020-07-10 11:43] LABS: BAND NEUTROPHILS % (MANUAL) 2 %; HYPOCHROMASIA MODERATE; LYMPHOCYTES % (MANUAL) 2 % (19-48); MONOCYTES % (MANUAL) 3 % (3.4-9.0); MYELOCYTES % (MANUAL) 2 % (0-0); NEUTROPHILS % (MANUAL) 90 % (40-74); PLATELET ESTIMATE ADEQUATE; PLATELET MORPHOLOGY COMMENT NORMAL; PROMYELOCYTES % (MANUAL) 1 % (0-0); RBC MORPHOLOGY COMMENT ABNORMAL
== END 2020-07-10 14:40 | disposition expired | DRG 853 ==
LOC: ER 14:17 → ERHOLD 18:47 → MED/SURG 20:25 → ICU 07-03 10:16
PROC: 0BH18EZ Insertion of Endotracheal Airway into Trachea, Via Natural or Artificial Opening Endoscopic (ICD-10-PCS; 2020-07-03)
PROC: 0FJB8ZZ Inspection of Hepatobiliary Duct, Via Natural or Artificial Opening Endoscopic (ICD-10-PCS; 2020-07-03)
PROC: BF101ZZ Fluoroscopy of Bile Ducts using Low Osmolar Contrast (ICD-10-PCS; 2020-07-03)
PROC: 05HY33Z Insertion of Infusion Device into Upper Vein, Percutaneous Approach (ICD-10-PCS; 2020-07-03)
PROC: 5A1955Z Respiratory Ventilation, Greater than 96 Consecutive Hours (ICD-10-PCS; principal; 2020-07-03 07:00)
PROC: 0F9 Hepatobiliary System and Pancreas, Drainage (ICD-10-PCS; 2020-07-05)
DX: A41.9 Sepsis, unspecified organism (principal); R65.21 Severe sepsis with septic shock; K72.00 Acute and subacute hepatic failure without coma; K83.1 Obstruction of bile duct; J96.02 Acute respiratory failure with hypercapnia; J96.01 Acute respiratory failure with hypoxia; K83.09 Other cholangitis; R64 Cachexia; C22.1 Intrahepatic bile duct carcinoma; J44.9 Chronic obstructive pulmonary disease, unspecified; Z66 Do not resuscitate; Z79.01 Long term (current) use of anticoagulants; Z95.2 Presence of prosthetic heart valve; F41.9 Anxiety disorder, unspecified; F32.9 Major depressive disorder, single episode, unspecified; E03.9 Hypothyroidism, unspecified; Z68.20 Body mass index [BMI] 20.0-20.9, adult; Z20.822 Contact with and (suspected) exposure to COVID-19
CPT/HCPCS: 31500; 36415; 36569; 36600; 43260; 47534; 71045; 74018; 74177; 74181; 74470; 76705; 76942; 80048; 80053; 80076; 81001; 82140; 82248; 82550; 82553; 82805; 82948; 83605; 83735; 84132; 84484; 85025; 85610; 86301; 87040; 93005; 93306; 94002; 94003; 94640; 94660; 96361; 99284; J0330; J0610; J1610; J1940; J2001; J2310; J2543; J3010; J3480; J7030; J7050; P9047; Q9967; U0002